=== PATIENT | male | born 1945 | race Caucasian/White ===

== ENCOUNTER → 2020-04-14 08:22 | Outpatient (BNVA) | payer MEDICARE, SELFPAY | PROVIDERS: PCP Internal Medicine; Referring Provider Internal Medicine; Visit Provider Urology | DX: N40.1 Benign prostatic hyperplasia with lower urinary tract symptoms (principal); N52.9 Male erectile dysfunction, unspecified | CPT/HCPCS: 51798; 81002; 99212 ==

== ENCOUNTER 2020-07-12 10:18 | Day surgery (SDC) | payer MEDICARE, SELFPAY ==
--- NOTE | 2020-07-11 07:59 | HO.ANESPROP2 ---
Documented by User: Margot Joelle 07/11/20 08:01 HPI - Anesthesia Eval Consult details Narrative: 74yo M for Upper Endoscopy with Balloon Dilitation PMF Active Problems Active Problems: All Active Problems (Updated 05/02/20 @ 09:22 by Dodie Cazares MD) Splenic artery aneurysm (Acute) BPH (benign prostatic hyperplasia) (Acute) Impaired glucose tolerance (Acute) Hypercholesterolemia (Acute) Erectile dysfunction (Acute) Past Medical History Medical History (Updated 07/12/20 @ 12:47 by Radha Banuelos) Anxiety BPH (benign prostatic hyperplasia) Erectile dysfunction Fatty liver GERD (gastroesophageal reflux disease) Gout Hypercholesterolemia Impaired glucose tolerance Insomnia Left inguinal hernia Peroneal tendonitis of right lower extremity Restless leg syndrome Splenic artery aneurysm Status post administration of all doses of COVID-19 vaccine series Umbilical hernia Vitamin D deficiency Family History Family History Father CVD (cardiovascular disease) Heart problem Mother Pneumonia Brother CVD (cardiovascular disease) Prostate cancer Sister Ovarian cancer Sister Cancer Son In good health Daughter In good health Surgical History Surgical History History of cataract surgery History of laparoscopic cholecystectomy History of surgery Status post appendectomy Social History Social History Smoking Status: Never smoker Use of substances other than those prescribed or required for medical reasons: No Have you been hit, kicked, punched, or otherwise hurt by someone within the past year? If so, by whom?: No Advance Directives: No Advance Directives Information Provided: Yes Meds Allergies Allergy/AdvReac Type Severity Reaction Status Date / Time bee venom protein (honey bee) Allergy Severe Anaphylaxis Verified 04/19/20 08:33 Home Medications Medication Instructions Recorded Confirmed Last Taken Type allopurinol 100 mg tablet 100 mg PO DAILY 04/14/20 05/02/20 Unknown History ezetimibe 10 mg tablet 10 mg PO DAILY 04/14/20 05/02/20 Unknown History fenofibrate 160 mg tablet 160 mg PO DAILY 04/14/20 05/02/20 Unknown History sildenafil 100 mg tablet mg PO 04/14/20 05/02/20 Unknown History gabapentin 300 mg capsule 600 mg PO BEDTIME cap 05/02/20 05/02/20 Unknown History pramipexole 0.5 mg tablet mg PO TID tab 05/02/20 05/02/20 Unknown History Exam Exam Date and Time: July 11, 2020758 Assessment and Plan Assessment Anesthesia Assessment: Chart Reviewed Documented by User: Radha Banuelos 07/12/20 12:47 [facility] Past Medical History Medical History (Updated 07/12/20 @ 12:47 by Radha Banuelos) Anxiety BPH (benign prostatic hyperplasia) Erectile dysfunction Fatty liver GERD (gastroesophageal reflux disease) Gout Hypercholesterolemia Impaired glucose tolerance Insomnia Left inguinal hernia Peroneal tendonitis of right lower extremity Restless leg syndrome Splenic artery aneurysm Status post administration of all doses of COVID-19 vaccine series Umbilical hernia Vitamin D deficiency Family History Family History Father CVD (cardiovascular disease) Heart problem Mother Pneumonia Brother CVD (cardiovascular disease) Prostate cancer Sister Ovarian cancer Sister Cancer Son In good health Daughter In good health Family history of problems with anesthesia: No Surgical History Surgical History History of cataract surgery History of laparoscopic cholecystectomy History of surgery Status post appendectomy History of Problems with Anesthesia: No Social History Social History Smoking Status: Never smoker Use of substances other than those prescribed or required for medical reasons: No Have you been hit, kicked, punched, or otherwise hurt by someone within the past year? If so, by whom?: No Advance Directives: No Advance Directives Information Provided: Yes Meds Allergies Allergy/AdvReac Type Severity Reaction Status Date / Time bee venom protein (honey bee) Allergy Severe Anaphylaxis Verified 04/19/20 08:33 Home Medications Medication Instructions Recorded Confirmed Last Taken Type allopurinol 100 mg tablet 100 mg PO DAILY 04/14/20 05/02/20 Unknown History ezetimibe 10 mg tablet 10 mg PO DAILY 04/14/20 05/02/20 Unknown History fenofibrate 160 mg tablet 160 mg PO DAILY 04/14/20 05/02/20 Unknown History sildenafil 100 mg tablet mg PO 04/14/20 05/02/20 Unknown History gabapentin 300 mg capsule 600 mg PO BEDTIME cap 05/02/20 05/02/20 Unknown History pramipexole 0.5 mg tablet mg PO TID tab 05/02/20 05/02/20 Unknown History Exam Height,Weight and Vital Signs: Vital Signs Temp Pulse Resp BP Pulse Ox 07/12/20 11:20 97.2 F 56 18 137/66 96 Airway Mallampati Class: II TM Dist: >3cm Neck ROM: Full Heart: RRR Lungs: CTAB Assessment and Plan Assessment Anesthesia Assessment: Anesthesia Plan Discussed and Chart Reviewed Final Anesthetic Review NPO: Yes ASA Class: II Final Preanesthetic Review: No Changes in Pt Med Stat, Meds/Allgs Chart Reviewed, Consent Obtained/Reviewed and Anes Risks/Benef Reviewed Patient Risk: Low Procedure Risk: Low Assessment/Block/Sedation in SS: Assess/Block/Sedation-SS Anesthetic Plan Anesthetic Plan: MAC: Disposition: Standard PACU
[2020-07-12 11:19] VITALS: BMI 29.1
[2020-07-12 11:20] VITALS: BP 137/66; PULSE 56; RESP 18; TEMP 36.2; O2SAT 96
[2020-07-12] MEDS: Lactated Ringers 1,000 ML 100 ML IVCONT (11:38)
[2020-07-12 13:36] VITALS: BP 123/71; PULSE 47; RESP 14; TEMP 36.4; O2SAT 96
--- NOTE | 2020-07-12 13:41 | PM.OP ---
Brief Operative Note Date of Service: 07/12/20 Pre-op diagnosis: Dysphagia Post-op diagnosis: other (Mild distal esophageal stricture, hiatal hernia, gastric polyps) Procedure: EGD with Balloon Dilation(18-20mm esophageal) and biopsies Surgeon: Matt Ward Anesthesia: MAC Estimated blood loss (mL): 4.0 Pathology: other (A. Gastric polyps) Condition: stable Disposition: PACU
[2020-07-12 13:49] VITALS: BP 111/57; PULSE 58; RESP 18; O2SAT 95
[2020-07-12 14:02] VITALS: TEMP 36.6
--- NOTE | 2020-07-12 22:04 | OP_ITS ---
SURGEON: Matt Ward MD INDICATIONS: The patient presents for evaluation of dysphagia and history of reflux. Full consent has been obtained from him for this, including risks of bleeding and perforation. PREOPERATIVE DIAGNOSIS: POSTOPERATIVE DIAGNOSIS: PROCEDURE PERFORMED: Esophagogastroduodenoscopy with balloon dilation of distal esophageal stricture, and biopsies. ESTIMATED BLOOD LOSS: COMPLICATIONS: ANESTHESIA: Monitored anesthesia care. ASSISTANTS: SPECIMENS: PREOPERATIVE DIAGNOSES: Dysphagia and history of reflux. POSTOPERATIVE DIAGNOSES: Dysphagia and history of reflux, mild distal esophageal stricture, hiatal hernia, gastric polyps. DESCRIPTION OF PROCEDURE: The patient was placed in the left lateral decubitus position. The Olympus video gastroscope was passed in the posterior oropharynx and upper esophagus under direct vision. The scope was passed slowly into the distal esophagus. The gastroesophageal junction appeared at 39 cm. This area was notable for a nonobstructing fibrotic appearing mild esophageal stricture. There was no ulceration nor mass. The scope easily passed this into a small hiatal hernia. The scope was advanced to pylorus and the duodenum was cannulated to the descending portion. The duodenum including the bulb was carefully inspected and appeared normal. There was no mass or ulceration. The scope was withdrawn back into the stomach. The gastric antrum and body appeared normal with good peristalsis. The scope was retroflexed visualizing the proximal stomach carefully, which appeared normal, without any sign of mass or ulceration. Scope was straightened. In the forward viewing position, multiple hyperplastic appearing gastric polyps were noted and several were biopsied. These were all in the proximal stomach. The scope was withdrawn back in the esophagus. I did use a [employer] incremental balloon to dilate the gastroesophageal junction and mild stricture with an 18 mm to a 20 mm esophageal balloon at the recommended pressure for 30 to 60 seconds each with good effect. There was some heme noted and disruption of the stricture. Proximal to 39 cm, the esophageal mucosa appeared normal. The scope was withdrawn from the patient. He tolerated the procedure well and was returned to the recovery area in stable condition. IMPRESSION: 1. Mild distal esophageal stricture, status post balloon dilation. 2. Gastric polyps, status post biopsy. 3. Small hiatal hernia. PLAN: The results of the biopsies will be checked. He was advised to continue his pantoprazole long-term. He was advised not to use any aspirin or NSAIDs for at least 1 week. Given today's findings, I did not obtain any proximal esophageal biopsies given no evidence of proximal esophageal rings that would suggest eosinophilic esophagitis. He was advised to minimize his use of caffeine as well. He will see me otherwise on a p.r.n. basis, but was advised to call sooner if he has any problems with his swallowing again. This has been discussed with his . MD TORI Shah/[facility] / [id number]
== END 2020-07-12 13:00 | disposition home or self-care (01) ==
PROVIDERS: PCP Internal Medicine; Visit Provider Internal Medicine
PROC: (CPT 43249; principal; 2020-07-12 11:40)
DX: K22.4 Dyskinesia of esophagus (principal); K22.2 Esophageal obstruction; K21.9 Gastro-esophageal reflux disease without esophagitis; K31.7 Polyp of stomach and duodenum; K44.9 Diaphragmatic hernia without obstruction or gangrene; K76.0 Fatty (change of) liver, not elsewhere classified; Z79.899 Other long term (current) drug therapy
CPT/HCPCS: 43249; 43239; 88305; 88342; C1726

== ENCOUNTER 2020-10-11 10:32 | Outpatient (REF) | payer MEDICARE, SELFPAY ==
[2020-10-11 13:11] LABS: MANUAL DIFF FLAG NO
[2020-10-11 13:15] LABS: Basophils Percent Auto 0.4 % (0-2); Eosinophils Absolute Auto 0.3 X10*3/uL (0.0-0.4); Eosinophils Percent Auto 5.1 % (0-4); Hematocrit 47.9 % (42-52); Hemoglobin 16.2 g/dl (14.0-18.0); Imm Gran Abs Auto 0.01 X10*3/uL (0.00-0.03); Imm Gran Pct Auto 0.2 % (0.0-0.4); Lymphocytes Absolute Auto 1.6 X10*3/uL (1.2-4.9); Lymphocytes Percent Auto 32.4 % (20-40); Mean Corpuscular HGB Conc 33.8 g/dl (31.0-36.0); Mean Corpuscular Hemoglobin 29.3 pg (27.0-33.0); Mean Corpuscular Volume 86.8 fL (80-98); Mean Platelet Volume 11.9 fL (9.4-12.4); Monocytes Absolute Auto 0.4 X10*3/uL (0.1-1.2); Neutrophils Absolute Auto 2.6 X10*3/uL (2.0-8.3); Neutrophils Percent Auto 53.9 % (45-73); Platelet Count 169 X10*3/uL (160-400); Red Blood Count 5.52 X10*6/uL (4.60-5.80); Red Cell Distribution Width 12.3 % (11.0-16.0); White Blood Count 4.9 X10*3/uL (4.8-10.8)
[2020-10-11 13:31] LABS: Estimated Average Glucose 120 mg/dL; Hemoglobin A1c % 5.8 %
[2020-10-11 13:40] LABS: Alanine Aminotransferase 44 U/L (0-40); Albumin Level 4.2 g/dL (3.5-5.0); Alkaline Phosphatase 65 U/L (39-117); Anion Gap 15 (12-20); Aspartate Amino Transferase 29 U/L (5-37); Bilirubin Total 0.9 mg/dL (0.0-1.0); Blood Urea Nitrogen 13 mg/dL (9-16); Calcium 9.5 mg/dL (8.4-10.2); Chloride 107 mmol/L (96-108); Cholesterol 222 mg/dL; Estimated Glomerular Filt Rate > 60; Glucose Random 122 mg/dL (60-115); HDL Cholesterol 45 mg/dL; LDL Cholesterol Calculated 137 mg/dl; Potassium 4.7 mmol/L (3.3-5.1); Sodium 142 mmol/L (135-145); Total Protein 6.9 g/dL (6.5-8.0); Triglycerides 200 mg/dL
[2020-10-11 13:41] LABS: Carbon Dioxide 25 mmol/L (22-29)
[2020-10-11 13:59] LABS: Free T4 (Free Thyroxine) 0.93 ng/dL (0.71-1.85)
[2020-10-11 14:02] LABS: PSA,Total (Free>4and<10) 0.51 ng/mL (0.00-4.00); Thyroid Stimulating Hormone 1.71 uIU/mL (0.32-4.0)
[2020-10-11 15:02] LABS: Folate 14.1 ng/mL (> or = 4.0); Vitamin B12 269 pg/mL (200-900)
== END 2020-10-11 10:33 | disposition home or self-care (01) ==
LOC: HO.10HDL 10:32
PROVIDERS: Urology; Visit Provider Internal Medicine
DX: R73.02 Impaired glucose tolerance (oral) (principal); E78.00 Pure hypercholesterolemia, unspecified; N13.8 Other obstructive and reflux uropathy; N40.1 Benign prostatic hyperplasia with lower urinary tract symptoms; Z12.5 Encounter for screening for malignant neoplasm of prostate
CPT/HCPCS: 36415; 80053; 80061; 82607; 82746; 83036; 84153; 84439; 84443; 85025

== ENCOUNTER → 2020-10-13 08:23 | Outpatient (BNVA) | payer MEDICARE, SELFPAY | PROVIDERS: PCP Internal Medicine; Visit Provider Urology | DX: N40.1 Benign prostatic hyperplasia with lower urinary tract symptoms (principal); R35.0 Frequency of micturition; N52.9 Male erectile dysfunction, unspecified | CPT/HCPCS: 99212 ==

== ENCOUNTER 2020-11-07 08:40 | Outpatient (REF) | payer MEDICARE, SELFPAY | END 2020-11-07 08:41 | disposition home or self-care (01) | LOC: HO.US 08:40 | PROVIDERS: Visit Provider Internal Medicine | DX: Z13.89 Encounter for screening for other disorder (principal) ==

== ENCOUNTER 2020-11-10 08:12 | Outpatient (REF) | payer MEDICARE, SELFPAY ==
--- NOTE | ~2020-11-10 | US_ITS ---
EXAMINATION: US ABDOMEN COMPLETE CLINICAL INFORMATION: Other specified abnormal findings of blood chemistry. COMPARISON: CT abdomen and pelvis 10/30/2018. Ultrasound abdomen limited 02/14/2011. TECHNIQUE: Real-time imaging of the abdominal viscera. Technically limited study secondary to bowel gas and body habitus. FINDINGS: PANCREAS: Not well visualized due to bowel gas ABDOMINAL AORTA: The proximal, mid, and distal segments are normal in caliber. INFERIOR VENA CAVA: Visualized portions are normal. LIVER: Evaluation of the liver is limited due to patient body habitus, particularly the left lobe. Liver echotexture is slightly increased. No focal hepatic lesion. There is no intrahepatic biliary duct dilatation seen. GALLBLADDER: Surgically absent. COMMON BILE DUCT: Normal in caliber measuring 1.1 cm in diameter. RIGHT KIDNEY: There is a 3 cm cyst in the midpole. No hydronephrosis or renal calculi. The kidney measures 12.0 cm in maximum dimension. LEFT KIDNEY: Normal. No hydronephrosis. No renal calculi or focal parenchymal lesions. The kidney measures 12.0 cm in maximum dimension. SPLEEN: Normal. The spleen measures 11.5 cm in maximum dimension. FREE FLUID: None. US/US abdomen complete IMPRESSION: Limited visualization of the pancreas and left lobe of the liver. Echogenic liver probably representing fatty infiltration. Right renal cyst.
== END 2020-11-10 08:13 | disposition home or self-care (01) ==
LOC: HO.US 08:12
PROVIDERS: Visit Provider Internal Medicine
DX: I72.8 Aneurysm of other specified arteries (principal); Z79.899 Other long term (current) drug therapy
CPT/HCPCS: 76700

== ENCOUNTER 2021-03-20 08:50 | Outpatient (REF) | payer MEDICARE, SELFPAY ==
--- NOTE | 2021-03-27 10:34 | MHC.AU.ANO ---
Adult Audiological Evaluation Date of Visit: 03/20/21 Insurance Claims Representative Used: Not Applicable Reason for Appointment: Audiologic evaluation due to question of decreased hearing ability. Darrius reports other people feel he is experiencing difficulty understanding speech. Does patient feel they have a hearing loss?: No Has hearing been tested previously?: No Hearing Handicap Inventory: HHIE SCORE: 2 Based on HHIE score, patient has: No perceived hearing handicap Ear History: History of Ear Wax Buildup: Removed by Dr. Cazares at last office visit. 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 Absent 2609-2545 Hz Analysis: Results are consistent with degree and configuration of hearing loss Left Ear Results: Present 1600 & 2000 Hz. Absent 1370-6427 Hz Analysis: Results are consistent with degree and configuration of hearing loss Hearing Evaluation: Transducer(s) Used: Insert Earphones Bone Conduction Method: Conventional Audiometry Stimuli Used: Pure Tones Right Ear: Description of Hearing: Mild loss at 250 Hz, rising to normal hearing thresholds 500-2000 Hz, sloping to a moderately-severe sensorineural hearing loss at 4000 Hz, rising to a mild loss at 8000 Hz. Left Ear: Description of Hearing: Mild loss at 250 Hz, rising to normal hearing thresholds 500-2000 Hz, sloping to a moderate sensorineural hearing loss at 4000 Hz, rising to a mild loss at 8000 Hz. Speech Recognition Threshold (SRT): Method Used: Monitored Live Voice Stimuli Used: Spondee Words Right Ear: 15 dB HL Left Ear: 15 dB HL Word Discrimination: Method: Recorded Lists Word Lists Used: NU-6 Right Ear: 92% at 60 dB HL Left Ear: 96% at 60 dB HL Interpretation of Results: The hypercompliant left middle ear system may relate to Kalen's intermittent blocked ear sensation an pain, particularly when he is experiencing any congestion. The bilateral high frequency loss causes Kalen to not hear many consonant sounds of speech which make it difficult to differentiate similar sounding words. This especially occurs when any background noise is present, a person is not facing him, or is at a distance of greater than 6 feet when speaking Recommendations: Discussed and provided a handout regarding communication strategies to use to improve speech understanding as much as possible. Discussed hearing aids and Darrius does not feel he is ready for amplification at this time. Hearing protection should be used when around loud noise. Audiological re-evaluation in one year. Will send a reminder card. Diagnosis: Primary Diagnosis: H90.3 Bilateral Sensorineural Hearing Loss Services Performed: Comprehensive Audiological Evaluation (CPT 61003) Tympanometry (CPT 47255) Signature: Provider: Asia Prince, CHIQUITA-A
== END 2021-03-20 08:51 | disposition home or self-care (01) ==
LOC: HO.SH 08:50
PROVIDERS: Visit Provider Internal Medicine
DX: H91.03 Ototoxic hearing loss, bilateral (principal)
CPT/HCPCS: 92557; 92567

== ENCOUNTER 2021-05-01 09:57 | Outpatient (REF) | payer MEDICARE, SELFPAY ==
[2021-05-01 10:45] LABS: Alanine Aminotransferase 43 U/L (0-40); Albumin Level 4.2 g/dL (3.5-5.0); Alkaline Phosphatase 52 U/L (39-117); Anion Gap 13 (12-20); Aspartate Amino Transferase 24 U/L (5-37); Bilirubin Total 0.8 mg/dL (0.0-1.0); Blood Urea Nitrogen 17 mg/dL (9-16); Calcium 10.1 mg/dL (8.4-10.2); Carbon Dioxide 28 mmol/L (22-29); Chloride 106 mmol/L (96-108); Cholesterol 266 mg/dL; Estimated Glomerular Filt Rate > 60; Glucose Fasting 116 mg/dL (60-99); HDL Cholesterol 36 mg/dL; LDL Cholesterol Calculated 157 mg/dl; Potassium 4.9 mmol/L (3.3-5.1); Sodium 142 mmol/L (135-145); Total Protein 7.1 g/dL (6.5-8.0); Triglycerides 369 mg/dL
== END 2021-05-01 09:58 | disposition home or self-care (01) ==
LOC: HO.10HDL 09:57
PROVIDERS: Visit Provider Nurse Practitioner Family
DX: E78.00 Pure hypercholesterolemia, unspecified (principal); R73.02 Impaired glucose tolerance (oral)
CPT/HCPCS: 36415; 80053; 80061

== ENCOUNTER 2021-05-07 08:52 | Outpatient (REF) | payer MEDICARE, SELFPAY ==
--- NOTE | ~2021-05-07 | CT_ITS ---
EXAMINATION: CT ABDOMEN WITH CONTRAST CLINICAL INFORMATION: Aneurysm or other specified arteries. COMPARISON: CT abdomen pelvis 10/30/2018 TECHNIQUE: Contiguous axial thin section helical images of the abdomen were performed following the administration of oral contrast and 85 mL of Omnipaque 350 intravenous contrast. The data set was reformatted in the coronal and sagittal planes and reviewed on an independent workstation. This CT examination was performed using dose optimization techniques as appropriate, variously including the following: *Automated exposure control *Adjustment of mA and/or kV according to patient size (this includes techniques or standardized protocols for targeted exams where dose is matched to indication/reason for exam; i.e. extremities or head) *Use of iterative reconstruction technique DLP: 336 mGy-cm FINDINGS: LUNG BASES: There is minimal bibasilar atelectasis. The heart size is normal. LIVER, GALLBLADDER, AND BILIARY TREE: The liver is normal size, contour and density. No focal lesion or intrahepatic ductal dilatation seen. The gallbladder has been surgically removed. PANCREAS: The pancreas is homogeneous in density and normal size. SPLEEN: The spleen is normal size. No focal lesion seen. ADRENAL GLANDS AND KIDNEYS: Bilateral adrenal glands are symmetrical and unremarkable. Both kidneys are normal size, shape and cortical thickness. There is a small nonenhancing 5 mm cyst lower pole left kidney and a exophytic 3.2 cm midpole and a 1.1 cm lower pole right renal cysts. Mild bilateral perinephric stranding is seen. BOWEL LOOPS: There is scattered stool, diverticula and gas seen in colon without any distention. The small bowel loops are normal caliber. No free air or free fluid. ABDOMINAL WALL: There is a right paraumbilical hernia with 3.2 cm wide neck. LYMPH NODES: Normal. VASCULAR: There is a 1 cm calcified splenic artery aneurysm. Previously it measured 8 mm. BONES: Mild degenerative disc changes L4-L5 and L5-S1 disc levels with ventral spondylosis. There is moderate spondylosis lower dorsal spine as well. CT/CT abdomen w con IMPRESSION: 1 cm splenic artery aneurysm. Previously measured 8 mm. Bilateral renal cysts, stable. Colonic diverticulosis, stable. Cholecystectomy changes. Small umbilical hernia containing fat. Fleischner guidelines were followed.
[2021-05-07] MEDS: iohexoL 350 MG/ML 100 ML INFUS..BTL IV (11:11)
== END 2021-05-07 08:53 | disposition home or self-care (01) ==
LOC: HO.CT 08:52
PROVIDERS: Visit Provider Internal Medicine
DX: I72.8 Aneurysm of other specified arteries (principal)
CPT/HCPCS: 74160; Q9967

== ENCOUNTER 2021-10-06 07:35 | Outpatient (REF) | payer MEDICARE, SELFPAY ==
--- NOTE | ~2021-10-06 | XR_ITS ---
EXAMINATION: XR ELBOW, RIGHT CLINICAL INFORMATION: Pain. COMPARISON: Previous x-ray 09/2010. TECHNIQUE: AP, lateral, and oblique views of the right elbow. FINDINGS: Bone alignment is normal. No fracture or dislocation is seen. The joint spaces are normal. There is no joint effusion. There is a large osteophyte projecting off the olecranon. There is soft tissue swelling over the olecranon suggestive of olecranon bursitis. There is a high attenuation with numerous small high attenuation densities questionable for calcifications or ossifications. XR/XR elbow RT 2V IMPRESSION: Soft tissue swelling over the olecranon, suggestive of olecranon bursitis. This is increased in attenuation with multiple small high attenuation soft tissue densities.
[2021-10-06 07:50] LABS: MANUAL DIFF FLAG NO
[2021-10-06 08:16] LABS: Basophils Percent Auto 0.4 % (0-2); Eosinophils Absolute Auto 0.4 X10*3/uL (0.0-0.4); Eosinophils Percent Auto 5.8 % (0-4); Hematocrit 46.1 % (42.0-52.0); Hemoglobin 15.7 g/dl (14.0-18.0); Imm Gran Abs Auto 0.04 X10*3/uL (0.00-0.03); Imm Gran Pct Auto 0.5 % (0.0-0.4); Lymphocytes Absolute Auto 2.1 X10*3/uL (1.2-4.9); Lymphocytes Percent Auto 27.4 % (20-40); Mean Corpuscular HGB Conc 34.1 g/dl (31.0-36.0); Mean Corpuscular Hemoglobin 29.6 pg (27.0-33.0); Mean Corpuscular Volume 86.8 fL (80.0-98.0); Mean Platelet Volume 10.6 fL (9.4-12.4); Monocytes Absolute Auto 0.9 X10*3/uL (0.1-1.2); Monocytes Percent Auto 11.3 % (2-11); Neutrophils Absolute Auto 4.2 x10*3/uL (2.0-8.3); Neutrophils Percent Auto 54.6 % (45-73); Platelet Count 209 X10*3/uL (160-400); Red Blood Count 5.31 X10*6/uL (4.60-5.80); Red Cell Distribution Width 12.2 % (11.0-16.0); White Blood Count 7.6 X10*3/uL (4.8-10.8)
[2021-10-06 08:48] LABS: Alanine Aminotransferase 40 U/L (0-40); Albumin Level 4.2 g/dL (3.5-5.0); Alkaline Phosphatase 75 U/L (39-117); Anion Gap 12 (12-20); Aspartate Amino Transferase 22 U/L (5-37); Bilirubin Total 0.7 mg/dL (0.0-1.0); Blood Urea Nitrogen 19 mg/dL (9-16); Calcium 9.8 mg/dL (8.4-10.2); Carbon Dioxide 26 mmol/L (22-29); Chloride 105 mmol/L (96-108); Cholesterol 154 mg/dL; Estimated Glomerular Filt Rate > 60; Glucose Random 121 mg/dL (60-115); HDL Cholesterol 40 mg/dL; LDL Cholesterol Calculated 82 mg/dl; Potassium 4.7 mmol/L (3.3-5.1); Sodium 138 mmol/L (135-145); Triglycerides 161 mg/dL; Uric Acid 5.3 mg/dL (3.4-7.0)
[2021-10-06 08:59] LABS: Erythrocyte Sedimentation Rate 19 MM/HR (0-15)
[2021-10-06 09:02] LABS: Free T4 (Free Thyroxine) 0.88 ng/dL (0.71-1.85); Thyroid Stimulating Hormone 1.31 uIU/mL (0.32-4.0)
== END 2021-10-06 07:36 | disposition home or self-care (01) ==
LOC: HO.LAB 07:35
PROVIDERS: PCP Internal Medicine; Visit Provider Internal Medicine
DX: E78.00 Pure hypercholesterolemia, unspecified (principal); R42 Dizziness and giddiness; M25.521 Pain in right elbow
CPT/HCPCS: 36415; 73070; 80053; 80061; 84439; 84443; 84550; 85025; 85652

== ENCOUNTER → 2021-10-12 08:54 | Outpatient (BNVA) | payer MEDICARE, SELFPAY | PROVIDERS: PCP Internal Medicine; Visit Provider Urology | DX: N40.1 Benign prostatic hyperplasia with lower urinary tract symptoms (principal); R35.0 Frequency of micturition | CPT/HCPCS: 51798; 99212 ==

== ENCOUNTER → 2022-01-22 08:50 | Outpatient (BNVA) | payer MEDICARE, SELFPAY | PROVIDERS: PCP Internal Medicine; Visit Provider Physician Assistant | DX: M1A.9XX1 Chronic gout, unspecified, with tophus (tophi) (principal) | CPT/HCPCS: 99212 ==

== ENCOUNTER 2022-04-24 08:13 | Day surgery (SDC) | payer MEDICARE, SELFPAY ==
--- NOTE | 2022-04-23 13:22 | HO.ANESPROP2 ---
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 (Acute) Benign positional vertigo (Acute) Impacted cerumen of both ears (Acute) Gout of right elbow (Acute) Constipation (Acute) Screening for prostate cancer (Acute) Umbilical hernia (Acute) Insomnia (Acute) Status post administration of all doses of COVID-19 vaccine series (Acute) Splenic artery aneurysm (Acute) BPH (benign prostatic hyperplasia) (Acute) Impaired glucose tolerance (Acute) Hypercholesterolemia (Acute) Erectile dysfunction (Acute) Past Medical History Medical History Anxiety BPH (benign prostatic hyperplasia) Diverticulitis Erectile dysfunction Esophageal stricture Fatty liver GERD (gastroesophageal reflux disease) Gout H/O: pneumonia Hypercholesterolemia Impaired glucose tolerance Insomnia Left inguinal hernia Peripheral neuropathy Peroneal tendonitis of right lower extremity Restless leg syndrome Splenic artery aneurysm Status post administration of all doses of COVID-19 vaccine series Tubular adenoma Umbilical hernia Vitamin D deficiency Family History Family History Father CVD (cardiovascular disease) Heart problem Mother Pneumonia Brother CVD (cardiovascular disease) Prostate cancer Sister Ovarian cancer Sister Cancer Son In good health Daughter In good health Family history of problems with anesthesia: No Surgical History Surgical History H/O esophagogastroduodenoscopy History of cataract surgery History of colonoscopy History of laparoscopic cholecystectomy History of surgery Status post appendectomy History of Problems with Anesthesia: No Social History Social History Housing: House Alcohol intake: current Alcohol intake frequency: a few times a month Alcohol type: beer Patient Tobacco Use Status: Never used Tobacco e-Cigarette/Vaping Use: Never Used Second Hand Smoke Exposure: No Use of substances other than those prescribed or required for medical reasons: No Are you DNR?: No Advance Directives: No Advance Directives Information Provided: Yes service: Yes 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al status: retired 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 Cognitive needs: No Hearing needs: No Vision needs: Yes Meds Allergies Allergy/AdvReac Type Severity Reaction Status Date / Time bee venom protein (honey bee) Allergy Severe Anaphylaxis Verified 04/24/22 08:30 Home Medications Medication Instructions Recorded Confirmed Last Taken Type allopurinol 100 mg tablet 100 mg PO DAILY 04/14/20 04/24/22 Unknown History (Zyloprim) fenofibrate 160 mg tablet 160 mg PO DAILY 04/14/20 04/24/22 Unknown History gabapentin 300 mg capsule 600 mg PO BEDTIME 05/02/20 04/24/22 Unknown History (Neurontin) pramipexole 0.5 mg tablet (Mirapex) 0.5 mg PO TID 05/02/20 04/24/22 Unknown History colchicine 0.6 mg tablet (Colcrys) 0.6 mg PO DAILY 04/24/22 04/24/22 Unknown History ezetimibe 10 mg tablet (Zetia) 10 mg PO DAILY 04/24/22 04/24/22 Unknown History ibuprofen 600 mg tablet (IBU) 600 mg PO TID PRN pain 04/24/22 04/24/22 04/16/22 History pantoprazole 40 mg tablet,delayed 40 mg PO DAILY 04/24/22 04/24/22 Unknown History release (Protonix) rosuvastatin 20 mg tablet (Crestor) 20 mg PO DAILY 04/24/22 04/24/22 Unknown History sildenafil 100 mg tablet (Viagra) 100 mg PO DAILY PRN sexual activity 04/24/22 04/24/22 Unknown History tamsulosin 0.4 mg capsule (Flomax) 0.4 mg PO BEDTIME 04/24/22 04/24/22 Unknown History zolpidem 5 mg tablet (Ambien) 5 mg PO BEDTIME PRN sleep 04/24/22 04/24/22 Unknown History Exam Exam Date and Time: April 23, 2022 1322 Pertinent Lab Results Pertinent Lab Results: Laboratory Tests 10/06/21 10/06/21 07:49 07:49 WBC 7.6 Hgb 15.7 Hct 46.1 Plt Count 209 Sodium 138 Potassium 4.7 Chloride 105 Carbon Dioxide 26 BUN 19 H Creatinine 1.17 Assessment and Plan Assessment Anesthesia Assessment: Chart Reviewed Final Anesthetic Review Family History of Problems with Anesthesia: No History of Problems with Anesthesia: No Documented by User: Marlo Mondragon MD 04/24/22 08:38 PMF Past Medical History Medical History Anxiety BPH (benign prostatic hyperplasia) Diverticulitis Erectile dysfunction Esophageal stricture Fatty liver GERD (gastroesophageal reflux disease) Gout H/O: pneumonia Hypercholesterolemia Impaired glucose tolerance Insomnia Left inguinal hernia Peripheral neuropathy Peroneal tendonitis of right lower extremity Restless leg syndrome Splenic artery aneurysm Status post administration of all doses of COVID-19 vaccine series Tubular adenoma Umbilical hernia Vitamin D deficiency Family History Family History Father CVD (cardiovascular disease) Heart problem Mother Pneumonia Brother CVD (cardiovascular disease) Prostate cancer Sister Ovarian cancer Sister Cancer Son In good health Daughter In good health Family history of problems with anesthesia: No Surgical History Surgical History H/O esophagogastroduodenoscopy History of cataract surgery History of colonoscopy History of laparoscopic cholecystectomy History of surgery Status post appendectomy History of Problems with Anesthesia: No Social History Social History Housing: House Alcohol intake: current Alcohol intake frequency: a few times a month Alcohol type: beer Patient Tobacco Use Status: Never used Tobacco e-Cigarette/Vaping Use: Never Used Second Hand Smoke Exposure: No Use of substances other than those prescribed or required for medical reasons: No Are you DNR?: No Advance Directives: No Advance Directives Information Provided: Yes service: Yes 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al status: retired 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 Cognitive needs: No Hearing needs: No Vision needs: Yes Meds Allergies Allergy/AdvReac Type Severity Reaction Status Date / Time bee venom protein (honey bee) Allergy Severe Anaphylaxis Verified 04/24/22 08:30 Home Medications Medication Instructions Recorded Confirmed Last Taken Type allopurinol 100 mg tablet 100 mg PO DAILY 04/14/20 04/24/22 Unknown History (Zyloprim) fenofibrate 160 mg tablet 160 mg PO DAILY 04/14/20 04/24/22 Unknown History gabapentin 300 mg capsule 600 mg PO BEDTIME 05/02/20 04/24/22 Unknown History (Neurontin) pramipexole 0.5 mg tablet (Mirapex) 0.5 mg PO TID 05/02/20 04/24/22 Unknown History colchicine 0.6 mg tablet (Colcrys) 0.6 mg PO DAILY 04/24/22 04/24/22 Unknown History ezetimibe 10 mg tablet (Zetia) 10 mg PO DAILY 04/24/22 04/24/22 Unknown History ibuprofen 600 mg tablet (IBU) 600 mg PO TID PRN pain 04/24/22 04/24/22 04/16/22 History pantoprazole 40 mg tablet,delayed 40 mg PO DAILY 04/24/22 04/24/22 Unknown History release (Protonix) rosuvastatin 20 mg tablet (Crestor) 20 mg PO DAILY 04/24/22 04/24/22 Unknown History sildenafil 100 mg tablet (Viagra) 100 mg PO DAILY PRN sexual activity 04/24/22 04/24/22 Unknown History tamsulosin 0.4 mg capsule (Flomax) 0.4 mg PO BEDTIME 04/24/22 04/24/22 Unknown History zolpidem 5 mg tablet (Ambien) 5 mg PO BEDTIME PRN sleep 04/24/22 04/24/22 Unknown History Exam Airway Mallampati Class: II TM Dist: >3cm Neck ROM: Full Loose/Missing/Broken Teeth: No Heart: ok Lungs: ok Assessment and Plan Assessment Anesthesia Assessment: Anesthesia Plan Discussed and Chart Reviewed Final Anesthetic Review Family History of Problems with Anesthesia: No History of Problems with Anesthesia: No NPO: Yes ASA Class: II Final Preanesthetic Review: No Changes in Pt Med Stat, Meds/Allgs Chart Reviewed, Consent Obtained/Reviewed and Anes Risks/Benef Reviewed Patient Risk: Low Procedure Risk: Low Anesthetic Plan Anesthetic Plan: MAC: and Agree w/ Assess. and Plan Disposition: Standard PACU
[2022-04-24 08:25] VITALS: BMI 31.1
[2022-04-24 08:34] VITALS: BP 133/74; PULSE 61; RESP 15; TEMP 36.3; O2SAT 93
[2022-04-24] MEDS: Lactated Ringers 1,000 ML 100 ML IVCONT (08:47)
[2022-04-24 10:04] VITALS: BP 106/63; PULSE 51; RESP 18; TEMP 36.1; O2SAT 93
--- NOTE | 2022-04-24 10:14 | PM.OP ---
Brief Operative Note Date of Service: 04/24/22 Pre-op diagnosis: Screening Post-op diagnosis: other (Colon polyps) Procedure: Colonoscopy to the cecum and TI with hot snare polypectomy x 2, bx/removal of cecal polyps, and bx at 20cm Surgeon: Matt Ward Anesthesia: MAC Was an Plastic Printer used for this Procedure?: No Estimated blood loss (mL): 2.0 Pathology: other (A. Polyp at 40cm B. Cecal polyps C. Polyp at 60cm D. Bx at 20cm, R/O Lipoma) Condition: stable Disposition: PACU
[2022-04-24 10:19] VITALS: BP 110/70; PULSE 56; RESP 18; TEMP 36.1; O2SAT 95
--- NOTE | 2022-04-24 10:39 | OP_ITS ---
SURGEON: Matt Ward MD INDICATIONS: The patient presents for evaluation of personal history of tubular adenoma of the colon, family history of colon cancer, and colorectal cancer screening. Full consent was obtained from him for this, including risks of bleeding and perforation. PREOPERATIVE DIAGNOSIS: POSTOPERATIVE DIAGNOSIS: PROCEDURE PERFORMED: Colonoscopy to cecum and terminal ileum with hot snare polypectomy x2, biopsy and removal of polyps, and biopsy. ESTIMATED BLOOD LOSS: COMPLICATIONS: ANESTHESIA: Medication used, monitored anesthesia care. ASSISTANTS: SPECIMENS: PREOPERATIVE DIAGNOSES: Colorectal cancer screening, personal history of tubular adenoma, family history of colon cancer. POSTOPERATIVE DIAGNOSES: Colorectal cancer screening, personal history of tubular adenoma, family history of colon cancer, colon polyps, diverticulosis, question lipoma, internal hemorrhoids. DESCRIPTION OF PROCEDURE: The patient was placed in the left lateral decubitus position. The digital rectal exam revealed no abnormalities. The Olympus videopediatric colonoscope was entered into the rectum and advanced easily to the cecum. Once in the cecum, I did identify cecal pouch with appendiceal orifice and a normal-appearing ileocecal valve. The terminal ileum was cannulated and appeared normal. The scope was withdrawn back in the colon. The entire cecum and ileocecal valve were well visualized. In the cecum, there were 2 flat less than 5 mm polyps, which were each biopsied and completely removed with cold biopsy forceps. The scope was then slowly withdrawn assessing all mucosal surfaces carefully. Preparation was excellent. At 40 cm and at 60 cm were approximately 8-10 mm polyps, which were each removed by hot snare polypectomy and recovered by suction. The polypectomy sites appeared clean, without any sign of residual polyp nor bleeding. At 20 cm was what appeared to be a submucosal lipoma with normal overlying mucosa and very soft when probed with a biopsy forceps. Two biopsies were obtained. There was a moderate amount of sigmoid diverticulosis. In the rectum, the scope was retroflexed visualizing internal hemorrhoids, but no other pathology. The rectal mucosa appeared normal. The scope was straightened and withdrawn the patient. He tolerated the procedure well and was returned to recovery area in stable condition. IMPRESSION: 1. Colon polyps. 2. Diverticulosis. 3. Question lipoma of sigmoid colon. 4. Internal hemorrhoids. PLAN: The results of the pathology will be checked. Given these findings, his previous history, and family history, I would recommend a repeat colonoscopy in 5 years for further screening, although at that point, he would be in his late 70s and we would need to take his clinical condition into account. He was advised not to use any aspirin or NSAIDs for 1 week. He would otherwise see me on a p.r.n. basis. Of note, he was advised to continue his PPI long-term in regard to the previous history of an esophageal stricture. He knows to call me if he develops recurrent dysphagia. This has been discussed with his . MD TORI Shah/[facility] / [id number]
--- NOTE | 2022-04-24 11:54 | HO.ANESPROP2 ---
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 (Acute) Benign positional vertigo (Acute) Impacted cerumen of both ears (Acute) Gout of right elbow (Acute) Constipation (Acute) Screening for prostate cancer (Acute) Umbilical hernia (Acute) Insomnia (Acute) Status post administration of all doses of COVID-19 vaccine series (Acute) Splenic artery aneurysm (Acute) BPH (benign prostatic hyperplasia) (Acute) Impaired glucose tolerance (Acute) Hypercholesterolemia (Acute) Erectile dysfunction (Acute) Past Medical History Medical History Anxiety BPH (benign prostatic hyperplasia) Diverticulitis Erectile dysfunction Esophageal stricture Fatty liver GERD (gastroesophageal reflux disease) Gout H/O: pneumonia Hypercholesterolemia Impaired glucose tolerance Insomnia Left inguinal hernia Peripheral neuropathy Peroneal tendonitis of right lower extremity Restless leg syndrome Splenic artery aneurysm Status post administration of all doses of COVID-19 vaccine series Tubular adenoma Umbilical hernia Vitamin D deficiency Family History Family History Father CVD (cardiovascular disease) Heart problem Mother Pneumonia Brother CVD (cardiovascular disease) Prostate cancer Sister Ovarian cancer Sister Cancer Son In good health Daughter In good health Family history of problems with anesthesia: No Surgical History Surgical History H/O esophagogastroduodenoscopy History of cataract surgery History of colonoscopy History of laparoscopic cholecystectomy History of surgery Status post appendectomy History of Problems with Anesthesia: No Social History Social History Housing: House Alcohol intake: current Alcohol intake frequency: a few times a month Alcohol type: beer Patient Tobacco Use Status: Never used Tobacco e-Cigarette/Vaping Use: Never Used Second Hand Smoke Exposure: No Use of substances other than those prescribed or required for medical reasons: No Are you DNR?: No Advance Directives: No Advance Directives Information Provided: Yes service: Yes 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al status: retired 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 Cognitive needs: No Hearing needs: No Vision needs: Yes Meds Allergies Allergy/AdvReac Type Severity Reaction Status Date / Time bee venom protein (honey bee) Allergy Severe Anaphylaxis Verified 04/24/22 08:30 Home Medications Medication Instructions Recorded Confirmed Last Taken Type allopurinol 100 mg tablet 100 mg PO DAILY 04/14/20 04/24/22 Unknown History (Zyloprim) fenofibrate 160 mg tablet 160 mg PO DAILY 04/14/20 04/24/22 Unknown History gabapentin 300 mg capsule 600 mg PO BEDTIME 05/02/20 04/24/22 Unknown History (Neurontin) pramipexole 0.5 mg tablet (Mirapex) 0.5 mg PO TID 05/02/20 04/24/22 Unknown History colchicine 0.6 mg tablet (Colcrys) 0.6 mg PO DAILY 04/24/22 04/24/22 Unknown History ezetimibe 10 mg tablet (Zetia) 10 mg PO DAILY 04/24/22 04/24/22 Unknown History ibuprofen 600 mg tablet (IBU) 600 mg PO TID PRN pain 04/24/22 04/24/22 04/16/22 History pantoprazole 40 mg tablet,delayed 40 mg PO DAILY 04/24/22 04/24/22 Unknown History release (Protonix) rosuvastatin 20 mg tablet (Crestor) 20 mg PO DAILY 04/24/22 04/24/22 Unknown History sildenafil 100 mg tablet (Viagra) 100 mg PO DAILY PRN sexual activity 04/24/22 04/24/22 Unknown History tamsulosin 0.4 mg capsule (Flomax) 0.4 mg PO BEDTIME 04/24/22 04/24/22 Unknown History zolpidem 5 mg tablet (Ambien) 5 mg PO BEDTIME PRN sleep 04/24/22 04/24/22 Unknown History Exam Exam Date and Time: April 24, 2022 1154 Height,Weight and Vital Signs: Height 6 ft Weight 104.326 kg Last Vital Signs Temp 97 F 04/24/22 10:19 Pulse 56 04/24/22 10:19 Resp 18 04/24/22 10:19 BP 110/70 04/24/22 10:19 Pulse Ox 95 04/24/22 10:19 O2 Del Method 04/24/22 10:19 Airway Mallampati Class: II TM Dist: >3cm Neck ROM: Full Denture: Upper and Lower Heart: rr Lungs: cta Assessment and Plan Final Anesthetic Review Family History of Problems with Anesthesia: No History of Problems with Anesthesia: No NPO: Yes ASA Class: II Final Preanesthetic Review: No Changes in Pt Med Stat, Meds/Allgs Chart Reviewed, Consent Obtained/Reviewed and Anes Risks/Benef Reviewed Patient Risk: Low Procedure Risk: Low Anesthetic Plan Anesthetic Plan: MAC: Disposition: Standard PACU
== END 2022-04-24 10:48 | disposition home or self-care (01) ==
PROVIDERS: PCP Internal Medicine; Visit Provider Internal Medicine
PROC: 0DJD8ZZ Inspection of Lower Intestinal Tract, Via Natural or Artificial Opening Endoscopic (ICD-10-PCS; CPT 45378; principal; 2022-04-24 09:30)
DX: Z12.11 Encounter for screening for malignant neoplasm of colon (principal); Z86.010 Personal history of colon polyps; Z80.0 Family history of malignant neoplasm of digestive organs; D12.0 Benign neoplasm of cecum; D12.5 Benign neoplasm of sigmoid colon; K57.30 Diverticulosis of large intestine without perforation or abscess without bleeding; K64.8 Other hemorrhoids; K21.9 Gastro-esophageal reflux disease without esophagitis; K22.2 Esophageal obstruction; K76.0 Fatty (change of) liver, not elsewhere classified; Z90.49 Acquired absence of other specified parts of digestive tract; E78.5 Hyperlipidemia, unspecified; M10.9 Gout, unspecified; Z79.899 Other long term (current) drug therapy
CPT/HCPCS: 45385; 45380; 88305; J2250

== ENCOUNTER → 2022-05-03 12:30 | Outpatient (BNVA) | payer MEDICARE, SELFPAY | PROVIDERS: PCP Internal Medicine; Visit Provider Physician Assistant | DX: M1A.9XX1 Chronic gout, unspecified, with tophus (tophi) (principal) | CPT/HCPCS: 99212 ==

== ENCOUNTER 2022-06-12 13:13 | Outpatient (REF) | payer MEDICARE, SELFPAY | END 2022-06-12 13:14 | disposition home or self-care (01) | LOC: HO.SH 13:13 | PROVIDERS: Visit Provider Internal Medicine | DX: Z46.1 Encounter for fitting and adjustment of hearing aid (principal); H90.3 Sensorineural hearing loss, bilateral | CPT/HCPCS: 92557; 92567 ==

== ENCOUNTER → 2022-06-14 11:17 | Outpatient (BNVA) | payer MEDICARE, SELFPAY | PROVIDERS: PCP Internal Medicine; Visit Provider Physician Assistant ==

== ENCOUNTER 2022-06-14 11:51 | Outpatient (REF) | payer MEDICARE, SELFPAY ==
[2022-06-14 13:45] LABS: MANUAL DIFF FLAG NO
[2022-06-14 13:55] LABS: Basophils Absolute Auto 0.1 X10*3/uL (0.0-0.2); Basophils Percent Auto 0.8 % (0-2); Eosinophils Absolute Auto 0.2 X10*3/uL (0.0-0.4); Eosinophils Percent Auto 3.6 % (0-4); Hematocrit 48.5 % (42.0-52.0); Hemoglobin 16.5 g/dl (14.0-18.0); Imm Gran Abs Auto 0.02 X10*3/uL (0.00-0.03); Imm Gran Pct Auto 0.3 % (0.0-0.4); Lymphocytes Percent Auto 31.6 % (20-40); Mean Corpuscular Hemoglobin 29.3 pg (27.0-33.0); Mean Platelet Volume 11.5 fL (9.4-12.4); Monocytes Absolute Auto 0.5 X10*3/uL (0.1-1.2); Monocytes Percent Auto 7.4 % (2-11); Neutrophils Absolute Auto 3.6 x10*3/uL (2.0-8.3); Neutrophils Percent Auto 56.3 % (45-73); Platelet Count 181 X10*3/uL (160-400); Red Blood Count 5.64 X10*6/uL (4.60-5.80); Red Cell Distribution Width 12.3 % (11.0-16.0); White Blood Count 6.5 X10*3/uL (4.8-10.8)
[2022-06-14 14:10] LABS: Estimated Average Glucose 126 mg/dL
[2022-06-14 14:25] LABS: Alanine Aminotransferase 52 U/L (0-40); Albumin Level 4.2 g/dL (3.5-5.0); Alkaline Phosphatase 61 U/L (39-117); Anion Gap 14 (12-20); Aspartate Amino Transferase 32 U/L (5-37); Bilirubin Total 1.2 mg/dL (0.0-1.0); Blood Urea Nitrogen 15 mg/dL (9-16); Calcium 9.8 mg/dL (8.4-10.2); Carbon Dioxide 26 mmol/L (22-29); Chloride 106 mmol/L (96-108); Cholesterol 221 mg/dL; Estimated Glomerular Filt Rate > 60; Glucose Random 106 mg/dL (60-115); HDL Cholesterol 43 mg/dL; LDL Cholesterol Calculated 119 mg/dl; Potassium 5.3 mmol/L (3.3-5.1); Sodium 141 mmol/L (135-145); Total Protein 6.8 g/dL (6.5-8.0); Triglycerides 299 mg/dL; Uric Acid 7.5 mg/dL (3.4-7.0)
[2022-06-14 14:41] LABS: Folate 10.1 ng/mL (> or = 4.0); Free T4 (Free Thyroxine) 0.87 ng/dL (0.71-1.85); Prostate Specific Antigen Scr 0.54 ng/mL (<0.05-4.0); Thyroid Stimulating Hormone 1.86 uIU/mL (0.32-4.0); Vitamin B12 375 pg/mL (200-900)
== END 2022-06-14 11:52 | disposition home or self-care (01) ==
LOC: HO.10HDL 11:51
PROVIDERS: Visit Provider Internal Medicine
DX: Z12.5 Encounter for screening for malignant neoplasm of prostate (principal); R73.02 Impaired glucose tolerance (oral); E78.00 Pure hypercholesterolemia, unspecified; N40.1 Benign prostatic hyperplasia with lower urinary tract symptoms; R35.0 Frequency of micturition
CPT/HCPCS: 36415; 80053; 80061; 82607; 82746; 83036; 84153; 84439; 84443; 84550; 85025

== ENCOUNTER 2022-06-25 11:49 | Day surgery (SDC) | payer MEDICARE, SELFPAY ==
[2022-06-19 10:52] VITALS: BMI 31.1
--- NOTE | 2022-06-24 08:55 | HO.ANESPROP2 ---
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 (Acute) Benign positional vertigo (Acute) Impacted cerumen of both ears (Acute) Gout of right elbow (Acute) Constipation (Acute) Screening for prostate cancer (Acute) Umbilical hernia (Acute) Insomnia (Acute) Status post administration of all doses of COVID-19 vaccine series (Acute) Splenic artery aneurysm (Acute) BPH (benign prostatic hyperplasia) (Acute) Impaired glucose tolerance (Acute) Hypercholesterolemia (Acute) Erectile dysfunction (Acute) Past Medical History Medical History (Updated 06/19/22 @ 10:36 by Anu Sepulveda RN) Anxiety BPH (benign prostatic hyperplasia) Diverticulitis Erectile dysfunction Esophageal stricture Fatty liver GERD (gastroesophageal reflux disease) Gout H/O: pneumonia Hypercholesterolemia Impaired glucose tolerance Insomnia Left inguinal hernia Peripheral neuropathy Peroneal tendonitis of right lower extremity Restless leg syndrome Splenic artery aneurysm Status post administration of all doses of COVID-19 vaccine series Tubular adenoma Umbilical hernia Vitamin D deficiency Family History Family History Father CVD (cardiovascular disease) Heart problem Mother Pneumonia Brother CVD (cardiovascular disease) Prostate cancer Sister Ovarian cancer Sister Cancer Son In good health Daughter In good health Family history of problems with anesthesia: No Surgical History Surgical History (Updated 06/19/22 @ 10:36 by Anu Sepulveda RN) H/O esophagogastroduodenoscopy History of cataract surgery History of colonoscopy History of laparoscopic cholecystectomy History of surgery Status post appendectomy History of Problems with Anesthesia: No Social History Social History Housing: House Alcohol intake: current Alcohol intake frequency: a few times a month Alcohol type: beer Patient Tobacco Use Status: Never used Tobacco e-Cigarette/Vaping Use: Never Used Second Hand Smoke Exposure: No Use of substances other than those prescribed or required for medical reasons: No Are you DNR?: No Advance Directives: No Advance Directives Information Provided: Yes Recently lost weight without trying: No Nutrition Risks: No Nutritional Risk service: Yes 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al status: retired 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 Cognitive needs: No Hearing needs: No Vision needs: Yes Meds Allergies Allergy/AdvReac Type Severity Reaction Status Date / Time bee venom protein (honey bee) Allergy Severe Anaphylaxis Verified 04/24/22 08:30 Home Medications Medication Instructions Recorded Confirmed Last Taken Type allopurinol 100 mg tablet 100 mg PO DAILY 04/14/20 06/19/22 Unknown History (Zyloprim) fenofibrate 160 mg tablet 160 mg PO DAILY 04/14/20 06/19/22 Unknown History gabapentin 300 mg capsule 600 mg PO BEDTIME 05/02/20 06/19/22 Unknown History (Neurontin) pramipexole 0.5 mg tablet (Mirapex) 0.5 mg PO TID 05/02/20 06/19/22 Unknown History colchicine 0.6 mg tablet (Colcrys) 0.6 mg PO DAILY 04/24/22 06/19/22 Unknown History ezetimibe 10 mg tablet (Zetia) 10 mg PO DAILY 04/24/22 06/19/22 Unknown History ibuprofen 600 mg tablet (IBU) 600 mg PO TID PRN pain 04/24/22 06/19/22 04/16/22 History pantoprazole 40 mg tablet,delayed 40 mg PO DAILY 04/24/22 06/19/22 06/25/22 History release (Protonix) rosuvastatin 20 mg tablet (Crestor) 20 mg PO DAILY 04/24/22 06/19/22 Unknown History sildenafil 100 mg tablet (Viagra) 100 mg PO DAILY PRN sexual activity 04/24/22 06/19/22 Unknown History tamsulosin 0.4 mg capsule (Flomax) 0.4 mg PO BEDTIME 04/24/22 06/19/22 Unknown History zolpidem 5 mg tablet (Ambien) 5 mg PO BEDTIME PRN sleep 04/24/22 06/19/22 Unknown History epinephrine 0.3 mg/0.3 mL 0.3 ml IM Q10M PRN Anaphylaxis 06/19/22 06/19/22 Unknown History injection, auto-injector Exam Exam Date and Time: June 24, 2022 0855 Height,Weight and Vital Signs: Height 6 ft Weight 104.326 kg Pertinent Lab Results Pertinent Lab Results: Laboratory Tests 06/14/22 06/14/22 11:55 11:55 WBC 6.5 Hgb 16.5 Hct 48.5 Plt Count 181 Sodium 141 Potassium 5.3 H Chloride 106 Carbon Dioxide 26 BUN 15 Creatinine 0.86 Assessment and Plan Assessment Anesthesia Assessment: Chart Reviewed Final Anesthetic Review Family History of Problems with Anesthesia: No History of Problems with Anesthesia: No Documented by User: Eloy Solomon MD 06/25/22 16:25 [facility] Past Medical History Medical History (Updated 06/19/22 @ 10:36 by Anu Sepulveda RN) Anxiety BPH (benign prostatic hyperplasia) Diverticulitis Erectile dysfunction Esophageal stricture Fatty liver GERD (gastroesophageal reflux disease) Gout H/O: pneumonia Hypercholesterolemia Impaired glucose tolerance Insomnia Left inguinal hernia Peripheral neuropathy Peroneal tendonitis of right lower extremity Restless leg syndrome Splenic artery aneurysm Status post administration of all doses of COVID-19 vaccine series Tubular adenoma Umbilical hernia Vitamin D deficiency Functional capacity: independent ambulation Family History Family History Father CVD (cardiovascular disease) Heart problem Mother Pneumonia Brother CVD (cardiovascular disease) Prostate cancer Sister Ovarian cancer Sister Cancer Son In good health Daughter In good health Surgical History Surgical History (Updated 06/19/22 @ 10:36 by Anu Sepulveda RN) H/O esophagogastroduodenoscopy History of cataract surgery History of colonoscopy History of laparoscopic cholecystectomy History of surgery Status post appendectomy Social History Social History Housing: House Alcohol intake: current Alcohol intake frequency: a few times a month Alcohol type: beer Patient Tobacco Use Status: Never used Tobacco e-Cigarette/Vaping Use: Never Used Second Hand Smoke Exposure: No Use of substances other than those prescribed or required for medical reasons: No Are you DNR?: No Advance Directives: No Advance Directives Information Provided: Yes Recently lost weight without trying: No Nutrition Risks: No Nutritional Risk service: Yes 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al status: retired 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 Cognitive needs: No Hearing needs: No Vision needs: Yes Meds Allergies Allergy/AdvReac Type Severity Reaction Status Date / Time bee venom protein (honey bee) Allergy Severe Anaphylaxis Verified 04/24/22 08:30 Home Medications Medication Instructions Recorded Confirmed Last Taken Type allopurinol 100 mg tablet 100 mg PO DAILY 04/14/20 06/19/22 Unknown History (Zyloprim) fenofibrate 160 mg tablet 160 mg PO DAILY 04/14/20 06/19/22 Unknown History gabapentin 300 mg capsule 600 mg PO BEDTIME 05/02/20 06/19/22 Unknown History (Neurontin) pramipexole 0.5 mg tablet (Mirapex) 0.5 mg PO TID 05/02/20 06/19/22 Unknown History colchicine 0.6 mg tablet (Colcrys) 0.6 mg PO DAILY 04/24/22 06/19/22 Unknown History ezetimibe 10 mg tablet (Zetia) 10 mg PO DAILY 04/24/22 06/19/22 Unknown History ibuprofen 600 mg tablet (IBU) 600 mg PO TID PRN pain 04/24/22 06/19/22 04/16/22 History pantoprazole 40 mg tablet,delayed 40 mg PO DAILY 04/24/22 06/19/22 06/25/22 History release (Protonix) rosuvastatin 20 mg tablet (Crestor) 20 mg PO DAILY 04/24/22 06/19/22 Unknown History sildenafil 100 mg tablet (Viagra) 100 mg PO DAILY PRN sexual activity 04/24/22 06/19/22 Unknown History tamsulosin 0.4 mg capsule (Flomax) 0.4 mg PO BEDTIME 04/24/22 06/19/22 Unknown History zolpidem 5 mg tablet (Ambien) 5 mg PO BEDTIME PRN sleep 04/24/22 06/19/22 Unknown History epinephrine 0.3 mg/0.3 mL 0.3 ml IM Q10M PRN Anaphylaxis 06/19/22 06/19/22 Unknown History injection, auto-injector Exam Airway Mallampati Class: III TM Dist: >3cm Neck ROM: Full Loose/Missing/Broken Teeth: Yes (Caps , crowns and fillings ) Heart: S1,S2 Lungs: b/l breath sounds Assessment and Plan Assessment Anesthesia Assessment: Anesthesia Plan Discussed Final Anesthetic Review NPO: Yes ASA Class: II Final Preanesthetic Review: Meds/Allgs Chart Reviewed, Consent Obtained/Reviewed and Anes Risks/Benef Reviewed Patient Risk: Intermediate Procedure Risk: Intermediate Anesthetic Plan Anesthetic Plan: GA and Agree w/ Assess. and Plan Disposition: Standard PACU and Extended PACU
[2022-06-25] VITALS (7 sets, daily range): BP systolic 100–111; BP diastolic 47–73; PULSE 62–71; RESP 13–16; TEMP 36.2–36.4; O2SAT 94–100; BMI 30.5
[2022-06-25] MEDS: Lactated Ringers 1,000 ML 100 ML IVCONT (13:03)
[2022-06-25 13:16] LABS: Anion Gap 13 (12-20); Carbon Dioxide 25 mmol/L (22-29); Chloride 109 mmol/L (96-108); Potassium 3.9 mmol/L (3.3-5.1); Sodium 143 mmol/L (135-145)
--- NOTE | 2022-06-25 15:27 | P.BOP_ITS ---
Brief Operative Note Date of Service: 06/25/22 Pre-op diagnosis: Right olecranon tophi Post-op diagnosis: same Procedure: Resection right olecranon tophi Implants: none Surgeon: Silvestre García MD Anesthesia: GETA and local Was an Emergency Services Dispatcher used for this Procedure?: No Estimated blood loss (mL): 5 Tourniquet time (min): 20 IV fluids (mL): 800 Pathology: other Condition: stable Disposition: PACU
--- NOTE | 2022-06-25 15:27 | MHC.SHP ---
Pre-Procedural Eval Section A Date of Service: 06/25/22 The patient is an INPATIENT: No Changes since office visit: No Cold of Flu in the past 2 weeks, No New Medical Problems, No Changes in Medication and No Patient answered all questions The History & Physical has been completed within 30 days and I have reviewed it.: Yes Section B Chief Complaint: Chronic gout, unspecified, with tophus (tophi) Allergies: Allergies Allergy/AdvReac Type Severity Reaction Status Date / Time bee venom protein (honey bee) Allergy Severe Anaphylaxis Verified 04/24/22 08:30 Plan I have reviewed the history and physical and performed a pertinent physical examination on my patient. No changes have occurred unless specified. Time Spent With Patient Time: Total time managing care of this patient today ____ minutes.
--- NOTE | 2022-06-27 12:14 | W.PM.OPN ---
Operative Note Operative Note Date of Service: 06/25/22 Narrative: Date of Service: 06/25/22 Pre-op diagnosis: Right olecranon tophi Post-op diagnosis: same Procedure: Resection right olecranon tophi Implants: none Surgeon: Silvestre García MD Anesthesia: GETA and local Was an Structures Assembler used for this Procedure?: No Estimated blood loss (mL): 5 Tourniquet time (min): 20 IV fluids (mL): 800 Pathology: other Condition: stable Disposition: PACU Patient was brought to the operating room and placed supine on the surgical table. HE was prepped and draped in standard sterile fashion and a time out was called to indentify proper site, proper procedure and IV antibiotics per weight were administered. I began by making a midline posterior incision over the olecranon distal triceps. Immediately evident was large collection gouty tophi. I gently the tophi from undersurface of the dermis and then resected the tophi in its entirety. There were extensions throughout the olecranon bursa. Care was taken to avoid the ulnar nerve and it was not visualized. I used a combination of sharp dissection curette and rongeur to remove as much of the tophi as possible. I then irrigated copiously and closed with horizontal mattress nylon. Patient was injected before incision with local and placed in a soft suction dressing extubated brought to recovery room in stable condition there were no known complications.
== END 2022-06-25 16:46 | disposition home or self-care (01) ==
PROVIDERS: Nurse Practitioner; PCP Internal Medicine; Visit Provider Orthopaedic Surgery
PROC: (CPT 24071; principal; 2022-06-25 17:10)
DX: M1A.0211 Idiopathic chronic gout, right elbow, with tophus (tophi) (principal); M25.521 Pain in right elbow; G62.9 Polyneuropathy, unspecified; M76.9 Unspecified enthesopathy, lower limb, excluding foot; R73.02 Impaired glucose tolerance (oral); I72.8 Aneurysm of other specified arteries; E78.00 Pure hypercholesterolemia, unspecified; E55.9 Vitamin D deficiency, unspecified; G47.00 Insomnia, unspecified; F41.1 Generalized anxiety disorder; Z79.1 Long term (current) use of non-steroidal anti-inflammatories (NSAID); Z79.899 Other long term (current) drug therapy
CPT/HCPCS: 24071; 36415; 80051; 88304; 88305; J0690; J2250; J2405; J3010

== ENCOUNTER → 2022-07-01 12:17 | Outpatient (BNVA) | payer MEDICARE, SELFPAY | PROVIDERS: PCP Internal Medicine; Visit Provider Physician Assistant ==

== ENCOUNTER → 2022-07-11 14:54 | Outpatient (BNVA) | payer MEDICARE, SELFPAY | PROVIDERS: PCP Internal Medicine; Visit Provider Physician Assistant ==

== ENCOUNTER 2022-07-30 09:37 | Outpatient (REF) | payer MEDICARE, SELFPAY ==
[2022-07-30 11:09] LABS: Blood Urea Nitrogen 18 mg/dL (9-16); Estimated Glomerular Filt Rate > 60
== END 2022-07-30 09:38 | disposition home or self-care (01) ==
LOC: HO.10HDL 09:37
PROVIDERS: Visit Provider Internal Medicine
DX: I72.8 Aneurysm of other specified arteries (principal)
CPT/HCPCS: 36415; 82565; 84520

== ENCOUNTER 2022-08-05 10:06 | Outpatient (REF) | payer MEDICARE, SELFPAY ==
--- NOTE | ~2022-08-05 | CT_ITS ---
EXAMINATION: CT ABDOMEN AND PELVIS WITH CONTRAST CLINICAL INFORMATION: Aneurysm COMPARISON: Previous CT of the abdomen and pelvis most recent April 2021 TECHNIQUE: Multidetector volumetric images were obtained from the superior aspect of the liver through the pubic symphysis following administration 85 mL of Omnipaque 350 intravenous contrast. Sagittal and coronal reformatted images were obtained on the technologist's workstation. Oral contrast: Yes This CT examination was performed using dose optimization techniques as appropriate, variously including the following: *Automated exposure control *Adjustment of mA and/or kV according to patient size (this includes techniques or standardized protocols for targeted exams where dose is matched to indication/reason for exam; i.e. extremities or head) *Use of iterative reconstruction technique DLP: 724 mGy-cm FINDINGS: LUNG BASES: The visualized lung bases are unremarkable. LIVER, GALLBLADDER, AND BILIARY TREE: The liver is low in attenuation suggestive of fatty infiltration. No focal liver lesion. The gallbladder is been removed. There is pneumobilia. No biliary duct dilatation. PANCREAS: Unremarkable. SPLEEN: Unremarkable. ADRENAL GLANDS: Unremarkable. KIDNEYS AND URETERS: Small bilateral renal cysts. Largest cyst measures 3 cm exophytic to the midpole of the right kidney. No imaging follow-up recommended. The kidneys are normal in size, shape, and attenuation. No hydronephrosis, hydroureter, or calculi seen. No perinephric stranding. BLADDER: Unremarkable. GASTROINTESTINAL TRACT: Diverticulosis of the colon. No evidence of diverticulitis. The appendix appears to have been removed. There is a duodenal diverticulum adjacent to the head of the pancreas.. ABDOMINAL WALL: Large umbilical hernia containing fat. Left inguinal hernia containing fat. Small right inguinal hernia or bulge containing fat. LYMPH NODES: Normal. VASCULAR: There is a small 9 mm splenic artery aneurysm. This is similar to previous exam. No other aneurysm is seen. There is evidence of atherosclerotic disease. PELVIC VISCERA: The prostate gland is enlarged and measures 4.4 x 5.4 cm in AP and transverse. OSSEOUS STRUCTURES: There are degenerative changes of the spine. CT/CT abdomen pelvis w IV con IMPRESSION: Stable 9 mm splenic artery aneurysm. Fatty liver. Bilateral renal cysts. Diverticulosis of the colon. Umbilical and bilateral inguinal hernias containing fat. Fleischner guidelines were followed.
[2022-08-05] MEDS: iohexoL 350 MG/ML 100 ML INFUS..BTL 85 ML IV (11:02)
== END 2022-08-05 10:07 | disposition home or self-care (01) ==
LOC: HO.CT 10:06
PROVIDERS: PCP Internal Medicine; Visit Provider Internal Medicine
DX: I72.8 Aneurysm of other specified arteries (principal)
CPT/HCPCS: 74177; Q9967

== ENCOUNTER 2022-09-04 08:52 | Outpatient (REF) | payer MEDICARE, SELFPAY ==
[2022-09-04 10:39] LABS: MANUAL DIFF FLAG NO
[2022-09-04 10:42] LABS: Basophils Percent Auto 0.7 % (0-2); Eosinophils Absolute Auto 0.2 X10*3/uL (0.0-0.4); Eosinophils Percent Auto 3.8 % (0-4); Hematocrit 46.3 % (42.0-52.0); Hemoglobin 15.8 g/dl (14.0-18.0); Imm Gran Abs Auto 0.01 X10*3/uL (0.00-0.03); Imm Gran Pct Auto 0.2 % (0.0-0.4); Lymphocytes Absolute Auto 1.9 X10*3/uL (1.2-4.9); Lymphocytes Percent Auto 31.6 % (20-40); Mean Corpuscular HGB Conc 34.1 g/dl (31.0-36.0); Mean Corpuscular Hemoglobin 30.2 pg (27.0-33.0); Mean Corpuscular Volume 88.5 fL (80.0-98.0); Mean Platelet Volume 11.8 fL (9.4-12.4); Monocytes Absolute Auto 0.5 X10*3/uL (0.1-1.2); Monocytes Percent Auto 8.4 % (2-11); Neutrophils Absolute Auto 3.4 x10*3/uL (2.0-8.3); Neutrophils Percent Auto 55.3 % (45-73); Platelet Count 158 X10*3/uL (160-400); Red Blood Count 5.23 X10*6/uL (4.60-5.80); Red Cell Distribution Width 13.2 % (11.0-16.0); White Blood Count 6.1 X10*3/uL (4.8-10.8)
[2022-09-04 10:53] LABS: Estimated Average Glucose 114 mg/dL; Hemoglobin A1c % 5.6 %
[2022-09-04 10:55] LABS: Anion Gap 11 (12-20)
[2022-09-04 11:05] LABS: Alanine Aminotransferase 49 U/L (0-40); Albumin Level 4.1 g/dL (3.5-5.0); Alkaline Phosphatase 68 U/L (39-117); Aspartate Amino Transferase 27 U/L (5-37); Bilirubin Total 1.1 mg/dL (0.0-1.0); Blood Urea Nitrogen 20 mg/dL (9-16); Calcium 9.5 mg/dL (8.4-10.2); Carbon Dioxide 27 mmol/L (22-29); Chloride 107 mmol/L (96-108); Cholesterol 236 mg/dL; Estimated Glomerular Filt Rate > 60; Glucose Random 131 mg/dL (60-115); HDL Cholesterol 42 mg/dL; LDL Cholesterol Calculated 140 mg/dl; Potassium 4.3 mmol/L (3.3-5.1); Sodium 141 mmol/L (135-145); Total Protein 6.9 g/dL (6.5-8.0); Triglycerides 273 mg/dL
[2022-09-04 11:13] LABS: Uric Acid 5.9 mg/dL (3.4-7.0)
[2022-09-04 11:18] LABS: Prostate Specific Antigen 0.47 ng/mL (<0.05-4.0)
== END 2022-09-04 08:53 | disposition home or self-care (01) ==
LOC: HO.10HDL 08:52
PROVIDERS: Urology; Visit Provider Internal Medicine
DX: R73.02 Impaired glucose tolerance (oral) (principal); E78.00 Pure hypercholesterolemia, unspecified; M10.9 Gout, unspecified; R42 Dizziness and giddiness; N40.1 Benign prostatic hyperplasia with lower urinary tract symptoms; N13.8 Other obstructive and reflux uropathy; R35.0 Frequency of micturition; Z12.5 Encounter for screening for malignant neoplasm of prostate
CPT/HCPCS: 36415; 80053; 80061; 83036; 84153; 84550; 85025

== ENCOUNTER → 2022-09-11 12:52 | Outpatient (BNVA) | payer MEDICARE, SELFPAY | PROVIDERS: PCP Internal Medicine; Visit Provider Urology | DX: N40.1 Benign prostatic hyperplasia with lower urinary tract symptoms (principal); R35.0 Frequency of micturition; N52.9 Male erectile dysfunction, unspecified | CPT/HCPCS: 51798; 99212 ==

== ENCOUNTER 2022-09-19 09:50 | Outpatient (REF) | payer MEDICARE, SELFPAY ==
--- NOTE | ~2022-09-19 | CT_ITS ---
EXAMINATION: CT ANGIOGRAM ABDOMEN CLINICAL INFORMATION: Splenic artery aneurysm. COMPARISON: CT scan of 6 weeks ago on 08/05/2022: Stable 9 mm splenic artery aneurysm . Additional CT abdomen and pelvis 10/30/2018 and 02/14/2011. TECHNIQUE: Multiple axial images were obtained through the abdomen following the administration of 80 mL Omnipaque 350 intravenous contrast. Images were reviewed on a dedicated 3-D workstation. This CT examination was performed using dose optimization techniques as appropriate, variously including the following: *Automated exposure control *Adjustment of mA and/or kV according to patient size (this includes techniques or standardized protocols for targeted exams where dose is matched to indication/reason for exam; i.e. extremities or head) *Use of iterative reconstruction technique DLP: 250 mGy-cm VASCULAR FINDINGS: The abdominal aorta and visualized iliac vessels show mild calcific plaque without aneurysm or dissection. The celiac, SMA and BENJAMIN are patent. Again seen is a small 9 mm splenic aneurysm seen near the splenic hilum which has rim calcification. There has been no change when compared to the study from 6 weeks ago, but this interval is meaningless. Would recommend a follow-up exam in 2-3 years given its tiny size of under 1 cm. No other visceral aneurysms are seen. NONVASCULAR FINDINGS: Lung Bases: The visualized lung bases are unremarkable. Liver, Gallbladder, And Biliary Tree: The liver is mildly enlarged with decreased attenuation suggesting hepatic steatosis. No focal hepatic lesion or biliary ductal dilatation is present. The gallbladder is unremarkable with no evidence of radiopaque gallstones, gallbladder wall thickening, or obvious pericholecystic inflammatory changes. Pancreas: Unremarkable. Spleen: There is mild splenomegaly at 12.7 cm. Adrenal Glands: Unremarkable. Kidneys And Ureters: The kidneys are normal in size, shape, and attenuation. No hydronephrosis, hydroureter, or calculi seen. There is a benign Bosniak class I right renal cyst which needs no additional followup. There is a smaller 1.4 cm right mid renal posterior mass which is indeterminate because of attenuation near 30 Hounsfield units. However this has been present on prior studies (for example 25:98) and I suspect this is a hemorrhagic hyperattenuating Bosniak class II cyst. No nephrocalcinosis. No hydronephrosis. Gastrointestinal Tract: Colonic diverticula are seen without diverticulitis. Surgical clips present in the right lower quadrant. Abdominal Wall: There is a periumbilical hernia seen containing only fat. Lymph Nodes: No retroperitoneal lymphadenopathy. Osseous Structures: Degenerative changes are seen in the lumbar spine most marked from L3 through S1. No bony destructive lesions. CT/CT angio abdomen IMPRESSION: 1. The 9 mm splenic artery aneurysm is unchanged when compared to the study from 6 weeks ago, but this interval is meaningless. Would recommend a follow-up exam in 2-3 years given its tiny size. 2. Incidental note made of mildly enlarged fatty liver, mild splenomegaly, benign Bosniak class I and class II renal cysts which need no additional followup and degenerative changes in the spine. Fleischner guidelines were followed.
[2022-09-19] MEDS: iohexoL 350 MG/ML 100 ML INFUS..BTL IV (11:16)
== END 2022-09-19 09:51 | disposition home or self-care (01) ==
LOC: HO.CT 09:50
PROVIDERS: Visit Provider Internal Medicine
DX: I72.8 Aneurysm of other specified arteries (principal)
CPT/HCPCS: 74175; Q9967

== ENCOUNTER 2022-11-25 11:56 | Outpatient (REF) | payer MEDICARE, SELFPAY ==
[2022-11-29 21:13] LABS: Testosterone, Free 41.1 pg/mL (30.0-135.0); Testosterone, Total 242 ng/dL (250-1100)
== END 2022-11-25 11:57 | disposition home or self-care (01) ==
LOC: HO.10HDL 11:56
PROVIDERS: Visit Provider Urology
DX: N52.9 Male erectile dysfunction, unspecified (principal)
CPT/HCPCS: 36415; 84402; 84403

== ENCOUNTER 2022-12-10 15:32 | Outpatient (AMB) | payer MEDICARE, SELFPAY ==
--- NOTE | 2022-12-10 15:33 | MHC.OFFVIS ---
Intake Intake Visit Reasons: 3m/Testosterone(set) Intake Note: Patient is present for Telephone Testosterone follow up Urology Med: Tadalafil, Tamsulosin Antibiotic Allergy:None Blood Thinner: None Pharmacy: [facility] Allergies bee venom protein (honey bee) Allergy (Severe, Verified 12/10/22 15:37) Anaphylaxis Medication List - Last Reconciled 12/10/22 by Donato Lund MD allopurinol 300 mg PO DAILY epinephrine 0.3 mL IM Q10M PRN ezetimibe 10 mg PO DAILY fenofibrate 160 mg PO DAILY gabapentin (Neurontin) 600 mg PO BEDTIME hydrocodone-acetaminophen 5-325 mg 1 tab PO Q8H PRN 5 days ibuprofen (IBU) 600 mg PO TID PRN methylprednisolone 0 mg PO pantoprazole (Protonix) 40 mg PO DAILY pramipexole (Mirapex) 0.5 mg PO TID psyllium husk (Fiber (psyllium husk)) 0.4 grams PO BEDTIME PRN rosuvastatin (Crestor) 20 mg PO DAILY sennosides-docusate sodium 8.6-50 mg (Senna with Docusate Sodium) 2 tab-caps (2 x 8.6-50 mg) PO BEDTIME 30 days tadalafil 10 mg PO DAILY 90 days tamsulosin (Flomax) 0.4 mg PO BEDTIME zolpidem (Ambien) 5 mg PO BEDTIME PRN HPI HPI Comments History of Present Illness Details Darrius is a pleasant male. He is a patient of Dr. Cazares. He is seen for the following urologic conditions - BPH - hypogonadism Telemedicine Evaluation 15 min Consultation [employer] [place] Video attempted Testosterone shows low normal total with low normal free T Continue with 10 mg Cialis daily Repeat lab work in 3 months Lower urinary tract symptoms Current visit for symptom evaluation minimal nocturia effective stream current medications tamsulosin PSA 10/25 0.5, 06/27 0.54 Erectile Dysfunction - not currently using therapy testosterone 380, FSH mildly elevated - 11/27 T 242 FT 41 PFSH Medical History Adult general medical exam Anxiety BPH (benign prostatic hyperplasia) Diverticulitis Dizziness Elbow pain, right Erectile dysfunction Esophageal stricture Fatty liver GERD (gastroesophageal reflux disease) Gout H/O: pneumonia Hypercholesterolemia Impacted cerumen of both ears Impaired glucose tolerance Insomnia Left inguinal hernia Olecranon bursitis, right elbow Onychomycosis Peripheral neuropathy Peroneal tendonitis of right lower extremity Restless leg syndrome Screening for colon cancer Screening for prostate cancer Splenic artery aneurysm Status post administration of all doses of COVID-19 vaccine series Tubular adenoma Umbilical hernia Vitamin D deficiency Surgical History H/O esophagogastroduodenoscopy History of cataract surgery History of colonoscopy History of laparoscopic cholecystectomy History of surgery Status post appendectomy Family History Father CVD (cardiovascular disease) Heart problem Mother Pneumonia Brother CVD (cardiovascular disease) Prostate cancer Sister Ovarian cancer Sister Cancer Son In good health Daughter In good health Social History Housing: House Alcohol intake: current Alcohol intake frequency: a few times a month Alcohol type: beer Patient Tobacco Use Status: Never used Tobacco e-Cigarette/Vaping Use: Never Used Second Hand Smoke Exposure: No service: Yes 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al status: retired 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 Cognitive needs: No Hearing needs: No Vision needs: Yes Review of Systems Const All systems reviewed & are unremarkable except as noted in HPI and below Reports no additional complaints Resp Reports no additional complaints GI Reports no additional complaints Reports as per HPI Musc Reports no additional complaints Physical Exam Telemedicine evaluation Appropriate responses Regular breathing rate and rhythm HEENT Head: Yes normal to inspection Ears: hearing grossly normal bilaterally Eyes General: appearance normal, both eyes and all related structures Neck Neck: Yes normal visual inspection Chest Chest palpation & inspection: normal inspection of the chest Resp Effort & Inspection: normal respiratory effort and able to speak in complete sentences Assessment & Plan Assessment & Plan (1) Low libido: Code(s): R68.82 - Decreased libido (2) MCGRATH (nonalcoholic steatohepatitis): Code(s): K75.81 - Nonalcoholic steatohepatitis (MCGRATH) Plan Three month follow-up Orders: Orders Prostate Specific Antigen 3 Months R68.82 - Decreased libido Testosterone, Free/Total 3 Months R68.82 - Decreased libido Lutenizing Hormone 3 Months R68.82 - Decreased libido Lipid Panel 3 Months E11.9 - Type 2 diabetes mellitus without complications, R68.82 - Decreased libido Sex Hormone Binding Globulin 3 Months R68.82 - Decreased libido Medications: Changed From tadalafil 5 mg PO DAILY 90 tabs 0RF sexual activity 90 days N52.9 - Male erectile dysfunction, unspecified To tadalafil 10 mg PO DAILY 90 tabs 0RF sexual activity 90 days N52.9 - Male erectile dysfunction, unspecified Patient Instructions: Imaging studies, laboratory and physical exam results were discussed and reviewed in detail. No major barriers to patient understanding were identified. An opportunity to ask questions regarding the treatment plan was provided. All questions were answered. The patient expressed understanding and agreement with the above treatment plan. The patient is aware they should contact our office by phone for worsening of their current condition or the appearance of new urologic symptoms. Compliance is encouraged with any medications and followup testing that is ordered. It is a privilege to participate in the urologic care of your patient. If you have any questions or concerns regarding treatment for the above conditions, or other urologic issues, please do not hesitate to contact me. The office telephone contact is [phone]. This note is constructed using voice recognition software. While every effort has been made to ensure accuracy computer numerical control operator errors may have been included. Yours sincerely, Dr Donato Lund MD, [facility] - Urology Providers of Expert, Compassionate Care for the Genitourinary System Telehealth Telehealth Location of provider rendering services: practice address Location of patient: address on file Patient Identification confirmed using: Name, : Yes Telehealth method: video Patient verbally consented to treatment: Yes Patient verbally consented to billing insurance company: Yes Patient informed of any privacy concerns related to visit: Yes Coding Level of Care Code Tele Est Pt Level 3 (54087) Diagnoses Low libido R68.82 MCGRATH (nonalcoholic steatohepatitis) K75.81
== END 2022-12-10 16:18 | disposition home or self-care (01) ==
LOC: HO.HUSH 15:32
PROVIDERS: PCP Internal Medicine; Visit Provider Urology
DX: R68.82 Decreased libido (principal); K75.81 Nonalcoholic steatohepatitis (NASH)
CPT/HCPCS: 99213

== ENCOUNTER → 2022-12-10 15:32 | Outpatient (BNVA) | payer MEDICARE, SELFPAY | PROVIDERS: PCP Internal Medicine; Visit Provider Urology ==

== ENCOUNTER 2023-01-23 11:16 | Outpatient (AMB) | payer MEDICARE, SELFPAY ==
[2023-01-23 11:16] VITALS: BP 122/70; PULSE 57; O2SAT 96; BMI 30.2
--- NOTE | 2023-01-23 11:16 | MHC.PC.OV ---
Vital Signs 01/23/23 11:16 Height 6 ft Weight 223 lb 0.4 oz BMI 30.2 BP 122/70 Blood Pressure Location Lt brachial Position Sitting Pulse 57 Pulse Source Pulse Oximeter Pulse Oximetry (%) 96 Oxygen Delivery Method Room Air Intake Visit Reasons: [facility] /01/12/23 Intake Note: Patient is here for hospital discharge follow up. Patient was discharged from [facility] on 01/12/23 [employer] Required: No Allergies bee venom protein (honey bee) Allergy (Severe, Verified 01/23/23 11:25) Anaphylaxis Medication List - Last Reconciled 01/23/23 by OPHELIA Reddy allopurinol 300 mg PO DAILY epinephrine 0.3 mL IM Q10M PRN ezetimibe 10 mg PO DAILY fenofibrate 160 mg PO DAILY gabapentin (Neurontin) 600 mg PO BEDTIME hydrocodone-acetaminophen 5-325 mg 1 tab PO Q8H PRN 5 days ibuprofen (IBU) 600 mg PO TID PRN methylprednisolone 0 mg PO pantoprazole (Protonix) 40 mg PO DAILY pramipexole (Mirapex) 0.5 mg PO TID psyllium husk (Fiber (psyllium husk)) 0.4 grams PO BEDTIME PRN rosuvastatin (Crestor) 20 mg PO DAILY sennosides-docusate sodium 8.6-50 mg (Senna with Docusate Sodium) 2 tab-caps (2 x 8.6-50 mg) PO BEDTIME 30 days tadalafil 10 mg PO DAILY 90 days tamsulosin (Flomax) 0.4 mg PO BEDTIME zolpidem (Ambien) 5 mg PO BEDTIME PRN Tobacco use date assessed: 01/23/23 Fall risk assessment: No Falls in past year Last assessed Fall Risk: 01/23/[address] [facility] /01/12/23 HPI Details Patient is a 77-year-old male who presents today to follow-up after being discharged from [facility]. Patient of Dr. Cazares. Admission date 01/12/2023, discharge date 01/13/2023. Discharge diagnosis pneumonia due to COVID-19 virus, cough, GERD. Patient presented to ED with 3 days fevers, cough, congestion, diffuse myalgias. Cough was managed with Tessalon Perles, guaifenesin codeine and as needed albuterol inhaler. Chest x-ray showed patchy airspace opacity left lower lung suspicious for pneumonia. Patient is to follow-up outpatient with his PCP in about 1 week and get repeat chest x-ray for follow-up on the lung infiltrate in about 1-2 weeks. Today, patient reports that he is improving, he reports intermittent dry cough, he did not take anything for cough today. Reports nasal congestion, no discharge. No shortness of breath, wheezes, chest pain, fever. [facility] Medical History Esophageal stricture Diverticulitis Peripheral neuropathy H/O: pneumonia Tubular adenoma Screening for prostate cancer Olecranon bursitis, right elbow Elbow pain, right Onychomycosis Adult general medical exam Screening for colon cancer Dizziness Impacted cerumen of both ears Status post administration of all doses of COVID-19 vaccine series Anxiety Vitamin D deficiency Fatty liver Insomnia Restless leg syndrome Gout Umbilical hernia Left inguinal hernia Impaired glucose tolerance Hypercholesterolemia BPH (benign prostatic hyperplasia) GERD (gastroesophageal reflux disease) Erectile dysfunction Splenic artery aneurysm Peroneal tendonitis of right lower extremity Surgical History H/O esophagogastroduodenoscopy History of colonoscopy History of surgery History of laparoscopic cholecystectomy History of cataract surgery Status post appendectomy Family History Father CVD (cardiovascular disease) Heart problem Mother Pneumonia Brother CVD (cardiovascular disease) Prostate cancer Sister Ovarian cancer Sister Cancer Son In good health Daughter In good health Social History Housing: House Alcohol intake: current Alcohol intake frequency: a few times a month Alcohol type: beer Patient Tobacco Use Status: Never used Tobacco e-Cigarette/Vaping Use: Never Used Second Hand Smoke Exposure: No service: Yes 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al status: retired 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 How often do you have a drink containing alcohol?: 2-3 times a week 2. How many drinks containing alcohol do you have on a typical day when you are drinking?: 1 or 2 3. How often do you have six or more drinks on one occasion?: Never Total Score: 3 Score Reviewed/Action Taken: No STEPHANIE-7 AMB Questionnaire STEPHANIE-7 Date STEPHANIE - 7 assessed: 07/04/22 Source: Developed by Drs. Matt Mcqueen, Genny Bailey, Michele Shah and colleagues, with an educational micaela from [employer]. Review of Systems Const Denies body aches, Denies chills, Denies fever(s) and Denies headache(s) ENT Denies dizziness, Denies otalgia, Denies headache(s), Reports nasal congestion, Denies nasal discharge, Denies sinus pain and Denies sore throat Card Denies chest pain, Denies edema, Denies lightheadedness and Denies dyspnea Resp Reports cough, Denies dyspnea and Denies wheezing GI Denies abdominal pain Denies dysuria Musc Denies myalgias Neuro Denies dizziness and Denies headache(s) Aller/Immun Denies wheezing Physical exam (Primary Care) Vital Signs: Last Vital Signs Pulse 57 01/23/23 11:16 BP 122/70 01/23/23 11:16 Pulse Ox 96 01/23/23 11:16 Oxygen Delivery Method Room Air 01/23/23 11:16 BMI result Body Mass Index 30.2 Tobacco/Smoking Status: Tobacco use Status Tobacco use date assessed 01/23/23 01/23/23 11:17 Patient Tobacco Use Status Never used Tobacco 01/23/23 11:17 e-Cigarette/Vaping Use Never Used 01/23/23 11:17 Thrive Assessment: Date of Thrive Assessment Date Thrive assessed 07/04/22 01/23/23 11:17 Const General: cooperative and no acute distress Orientation/consciousness: patient oriented x3 HENMT Head: Yes normocephalic and Yes atraumatic Face and sinus: Yes sinuses nontender Mouth: oropharynx normal and moist mucous membranes Throat: Yes posterior oropharynx normal Eyes General: appearance normal, both eyes and all related structures Neck Neck: Yes normal visual inspection, Yes full ROM and Yes no lymphadenopathy Resp Effort & Inspection: normal respiratory effort, able to speak in complete sentences and Actively coughing (Mild) Quality: dry Auscultation: clear to auscultation bilaterally, no crackles, no rales, no rhonchi and no wheezes Cardio Rate: regular rate Rhythm: regular rhythm Heart sounds: S1 normal heart sound present and S2 normal heart sound present GI Auscultation: normal bowel sounds Neuro General: patient oriented x3 Gait exam (Neuro): Normal gait present Extrem General: Yes full ROM and No edema Assessment and Plan Assessment & Plan (1) Nasal congestion: Code(s): R09.81 - Nasal congestion Plan: Start Flonase nasal spray daily (2) Pneumonia due to COVID-19 virus: Code(s): U07.1 - COVID-19; - Pneumonia due to coronavirus disease 2019 Plan: Patient reports that his symptoms are improving Patient is to continue guaifenesin/codeine 10 mL every 4 some hours as needed for cough Will repeat chest x-ray in 2 weeks Signs and symptoms reviewed when to notify provider or go to the emergency department Patient agreed with the plan Orders: Orders XR chest 2V 2 Weeks - Pneumonia due to coronavirus disease 2019, U07.1 - COVID-19 Medications: New fluticasone propionate 50 mcg/actuation (Flonase Allergy Relief) administer into each nostril 1 spray intranasal DAILY 100 mL 0RF R09.81 - Nasal congestion Coding Level of Care Code Est Pt Level 3 (48132) Diagnoses Nasal congestion R09.81 Pneumonia due to COVID-19 virus U07.1;
== END 2023-01-23 12:26 | disposition home or self-care (01) ==
PROVIDERS: PCP Internal Medicine; Visit Provider Nurse Practitioner Family
DX: R09.81 Nasal congestion (principal); U07.1 COVID-19; J12.82 Pneumonia due to coronavirus disease 2019
CPT/HCPCS: 99213

== ENCOUNTER 2023-02-05 11:43 | Outpatient (REF) | payer MEDICARE, SELFPAY ==
--- NOTE | ~2023-02-05 | XR_ITS ---
EXAMINATION: XR CHEST CLINICAL INFORMATION: Covid 19 COMPARISON: Chest 04/28/2019 TECHNIQUE: 2 views of the chest were obtained. FINDINGS: No significant abnormality is noted involving the heart, lungs, mediastinum or soft tissues. Degenerative changes involve the thoracic spine. XR/XR chest 2V IMPRESSION: No acute cardiopulmonary disease.
== END 2023-02-05 11:44 | disposition home or self-care (01) ==
LOC: HO.XRAY 11:43
PROVIDERS: PCP Internal Medicine; Visit Provider Nurse Practitioner Family
DX: U07.1 COVID-19 (principal); J12.82 Pneumonia due to coronavirus disease 2019
CPT/HCPCS: 71046

== ENCOUNTER 2023-03-05 11:19 | Outpatient (REF) | payer MEDICARE, SELFPAY ==
[2023-03-05 15:04] LABS: Prostate Specific Antigen 0.49 ng/mL (<0.05-4.0)
[2023-03-06 09:33] LABS: Lutenizing Hormone 2.5 mIU/mL (1.6-15.2); Sex Hormone Binding Globulin 39 nmol/L (22-77)
[2023-03-09 14:44] LABS: Testosterone, Free 50.2 pg/mL (30.0-135.0); Testosterone, Total 312 ng/dL (250-1100)
== END 2023-03-05 11:20 | disposition home or self-care (01) ==
LOC: HO.WFDLDS 11:19
PROVIDERS: Visit Provider Urology
DX: Z12.5 Encounter for screening for malignant neoplasm of prostate (principal); R68.82 Decreased libido
CPT/HCPCS: 36415; 83002; 84153; 84270; 84402; 84403

== ENCOUNTER 2023-03-12 13:04 | Outpatient (AMB) | payer MEDICARE, SELFPAY ==
--- NOTE | 2023-03-12 13:17 | A.OFFVIS_ITS ---
Intake Intake Visit Reasons: 3m/labs(Testo pending) Intake Note: Patient is Present for Follow Up LABS Urology Medication: Tadalafil Antibiotic Allergies:None Blood Thinners: None Patient states that he is no longer on tamsulosin feels like he no longer needs the medication. Has no urinary issues at moment Allergies bee venom protein (honey bee) Allergy (Severe, Verified 03/12/23 13:20) Anaphylaxis Medication List - Last Reconciled 03/12/23 by Donato Lund MD allopurinol 300 mg PO DAILY epinephrine 0.3 mL IM Q10M PRN ezetimibe 10 mg PO DAILY fenofibrate 160 mg PO DAILY fluticasone propionate 50 mcg/actuation (Flonase Allergy Relief) 1 spray intranasal DAILY gabapentin (Neurontin) 600 mg PO BEDTIME methylprednisolone 0 mg PO pantoprazole (Protonix) 40 mg PO DAILY pramipexole (Mirapex) 0.5 mg PO TID psyllium husk (Fiber (psyllium husk)) 0.4 grams PO BEDTIME PRN rosuvastatin (Crestor) 20 mg PO DAILY sennosides-docusate sodium 8.6-50 mg (Senna with Docusate Sodium) 2 tab-caps (2 x 8.6-50 mg) PO BEDTIME 30 days tadalafil 10 mg PO DAILY 90 days tamsulosin (Flomax) 0.4 mg PO BEDTIME zolpidem (Ambien) 5 mg PO BEDTIME PRN HPI HPI Comments History of Present Illness Details Darrius is a pleasant male. He is a patient of Dr. Cazares. He is seen for the following urologic conditions - BPH - hypogonadism Testosterone shows low normal total with low normal free T Continue with 10 mg Cialis daily and 20mg on demand 6m f/u Lower urinary tract symptoms Current visit for symptom evaluation minimal nocturia effective stream current medications tamsulosin PSA 10/25 0.5, 06/27 0.54 Erectile Dysfunction - not currently using therapy testosterone 380, FSH mildly elevated - 11/27 T 242 FT 41, 02/27 T 312 FT 50 PFSH Medical History Esophageal stricture Diverticulitis Peripheral neuropathy H/O: pneumonia Tubular adenoma Screening for prostate cancer Olecranon bursitis, right elbow Elbow pain, right Onychomycosis Adult general medical exam Screening for colon cancer Dizziness Impacted cerumen of both ears Status post administration of all doses of COVID-19 vaccine series Anxiety Vitamin D deficiency Fatty liver Insomnia Restless leg syndrome Gout Umbilical hernia Left inguinal hernia Impaired glucose tolerance Hypercholesterolemia BPH (benign prostatic hyperplasia) GERD (gastroesophageal reflux disease) Erectile dysfunction Splenic artery aneurysm Peroneal tendonitis of right lower extremity Surgical History H/O esophagogastroduodenoscopy History of colonoscopy History of surgery History of laparoscopic cholecystectomy History of cataract surgery Status post appendectomy Family History Father CVD (cardiovascular disease) Heart problem Mother Pneumonia Brother CVD (cardiovascular disease) Prostate cancer Sister Ovarian cancer Sister Cancer Son In good health Daughter In good health Social History Housing: House Alcohol intake: current Alcohol intake frequency: a few times a month Alcohol type: beer Patient Tobacco Use Status: Never used Tobacco e-Cigarette/Vaping Use: Never Used Second Hand Smoke Exposure: No service: Yes 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al status: retired 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 Cognitive needs: No Hearing needs: No Vision needs: Yes Review of Systems Const Denies chills and Denies fever(s) Card Reports no additional complaints and Denies syncope Resp Denies cough GI Denies abdominal pain and Denies heartburn Reports as per HPI and Denies change in libido Neuro Denies syncope Psych Denies change in libido Endo Denies change in libido Physical Exam Const General: cooperative, healthy appearing, comfortable and no acute distress Orientation/consciousness: patient oriented x3 HEENT Face and sinus: Yes normal facial exam Mouth: moist mucous membranes Neck Neck: Yes normal visual inspection, Yes full ROM and Yes trachea midline Chest Chest palpation & inspection: normal inspection of the chest Resp Effort & Inspection: normal respiratory effort, able to speak in complete sentences and no respiratory distress GI Inspection: Yes normal to inspection Back/Spine/Pelvis Cervical Spine: normal cervical lordosis Thoracic/Lumbar Spine: thoracic and lumbar spine normal to inspection Skin General skin exam: no rashes or lesions noted Neuro General: patient oriented x3, gait normal, tone normal and moves all extremities Extrem General: Yes normal to inspection and Yes capillary refill normal Assessment & Plan Assessment & Plan (1) Hypogonadism in male: Code(s): E29.1 - Testicular hypofunction (2) Erectile dysfunction: Comment: Currently no treatment plan Code(s): N52.9 - Male erectile dysfunction, unspecified Plan Six month follow-up Orders: Orders Testosterone, Free/Total 6 Months E29.1 - Testicular hypofunction, R68.82 - Decreased libido Medications: New tadalafil On demand medication take 60 minutes before intended activity 20 mg PO ONCE 30 days PRN 30 tabs 0RF sexual activity E11.69 - Type 2 diabetes mellitus with other specified complication, E29.1 - Testicular hypofunction, N52.1 - Erectile dysfunction due to diseases classified elsewhere Refilled tadalafil 10 mg PO DAILY 90 days 90 tabs 1RF sexual activity N52.9 - Male erectile dysfunction, unspecified Patient Instructions: Imaging studies, laboratory and physical exam results were discussed and review ed in detail. No major barriers to patient understanding were identified. An opportunity to ask questions regarding the treatment plan was provided. All questions were answered. The patient expressed understanding and agreement with the above treatment plan. The patient is aware they should contact our office by phone for worsening of their current condition or the appearance of new urologic symptoms. Compliance is encouraged with any medications and followup testing that is ordered. It is a privilege to participate in the urologic care of your patient. If you have any questions or concerns regarding treatment for the above conditions, or other urologic issues, please do not hesitate to contact me. The office telephone contact is [phone]. This note is constructed using voice recognition software. While every effort has been made to ensure accuracy valve seater operator errors may have been included. Yours sincerely, Dr Donato Lund MD, [facility] Providers of Expert, Compassionate Care for the Genitourinary System Coding Level of Care Code Est Pt Level 4 (40354) Diagnoses Hypogonadism in male E29.1 Erectile dysfunction N52.9
== END 2023-03-12 13:48 | disposition home or self-care (01) ==
PROVIDERS: PCP Internal Medicine; Visit Provider Urology
DX: E29.1 Testicular hypofunction (principal); N52.9 Male erectile dysfunction, unspecified
CPT/HCPCS: 99214

== ENCOUNTER → 2023-03-12 13:04 | Outpatient (BNVA) | payer MEDICARE, SELFPAY | PROVIDERS: PCP Internal Medicine; Visit Provider Urology | DX: E29.1 Testicular hypofunction (principal); N52.9 Male erectile dysfunction, unspecified | CPT/HCPCS: 99212 ==

== ENCOUNTER 2023-07-01 09:31 | Outpatient (REF) | payer MEDICARE, SELFPAY ==
[2023-07-01 12:07] LABS: MANUAL DIFF FLAG NO
[2023-07-01 12:15] LABS: Basophils Percent Auto 0.4 % (0-2); Eosinophils Absolute Auto 0.7 X10*3/uL (0.0-0.4); Eosinophils Percent Auto 10.7 % (0-4); Hematocrit 45.9 % (42.0-52.0); Hemoglobin 15.7 g/dl (14.0-18.0); Imm Gran Abs Auto 0.02 X10*3/uL (0.00-0.03); Imm Gran Pct Auto 0.3 % (0.0-0.4); Lymphocytes Absolute Auto 2.1 X10*3/uL (1.2-4.9); Lymphocytes Percent Auto 30.1 % (20-40); Mean Corpuscular HGB Conc 34.2 g/dl (31.0-36.0); Mean Corpuscular Hemoglobin 30.1 pg (27.0-33.0); Mean Corpuscular Volume 87.9 fL (80.0-98.0); Monocytes Absolute Auto 0.4 X10*3/uL (0.1-1.2); Monocytes Percent Auto 5.9 % (2-11); Neutrophils Absolute Auto 3.6 x10*3/uL (2.0-8.3); Neutrophils Percent Auto 52.6 % (45-73); Platelet Count 159 X10*3/uL (160-400); Red Blood Count 5.22 X10*6/uL (4.60-5.80); Red Cell Distribution Width 13.2 % (11.0-16.0); White Blood Count 6.8 X10*3/uL (4.8-10.8)
[2023-07-01 12:21] LABS: Estimated Average Glucose 117 mg/dL; Hemoglobin A1C 150.6504 umol/L; Hemoglobin A1c % 5.7 % (<6.0)
[2023-07-01 12:58] LABS: Alanine Aminotransferase 45 U/L (0-40); Alkaline Phosphatase 56 U/L (39-117); Anion Gap 11 (12-20); Aspartate Amino Transferase 31 U/L (5-37); Bilirubin Total 0.7 mg/dL (0.0-1.0); Blood Urea Nitrogen 14 mg/dL (9-16); Calcium 9.4 mg/dL (8.4-10.2); Carbon Dioxide 28 mmol/L (22-29); Chloride 109 mmol/L (96-108); Cholesterol 136 mg/dL (<200); Estimated Glomerular Filt Rate > 60; Glucose Random 132 mg/dL (60-115); HDL Cholesterol 48 mg/dL (>40); LDL Cholesterol Calculated 54 mg/dL (<100); Potassium 4.1 mmol/L (3.3-5.1); Sodium 144 mmol/L (135-145); Triglycerides 171 mg/dL (<150)
[2023-07-01 13:15] LABS: Thyroid Stimulating Hormone 2.34 uIU/mL (0.32-4.0)
[2023-07-01 13:19] LABS: Free T4 (Free Thyroxine) 0.81 ng/dL (0.71-1.85)
== END 2023-07-01 09:32 | disposition home or self-care (01) ==
LOC: HO.WFDLDS 09:31
PROVIDERS: Referring Provider Urology; Visit Provider Internal Medicine
DX: E78.00 Pure hypercholesterolemia, unspecified (principal); E11.9 Type 2 diabetes mellitus without complications; R68.82 Decreased libido
CPT/HCPCS: 36415; 80053; 80061; 83036; 84439; 84443; 85025

== ENCOUNTER 2023-07-09 10:26 | Outpatient (AMB) | payer MEDICARE, SELFPAY ==
[2023-07-09 10:27] VITALS: BP 120/72; PULSE 52; O2SAT 98; BMI 30.5
--- NOTE | 2023-07-09 10:27 | AM.OFFVISMDC ---
Intake Vital Signs 07/09/23 10:27 Height 6 ft Weight 225 lb BMI 30.5 BP 120/72 Blood Pressure Location Lt brachial Position Sitting Pulse 52 Pulse Source Pulse Oximeter Pulse Oximetry (%) 98 Oxygen Delivery Method Room Air Intake Visit Reasons: AWV Intake Note: Patient is here for an Annual Wellness Visit. Multiple Games Dealer Required: No Allergies bee venom protein (honey bee) Allergy (Severe, Verified 07/09/23 10:28) Anaphylaxis Medication List - Last Reconciled 07/09/23 by Dodie Cazares MD allopurinol 300 mg PO DAILY epinephrine 0.3 mL IM Q10M PRN ezetimibe 10 mg PO DAILY fenofibrate 160 mg PO DAILY fluticasone propionate 50 mcg/actuation (Flonase Allergy Relief) 1 spray intranasal DAILY gabapentin (Neurontin) 600 mg PO BEDTIME pantoprazole (Protonix) 40 mg PO DAILY pramipexole (Mirapex) 0.5 mg PO TID psyllium husk (Fiber (psyllium husk)) 0.4 grams PO BEDTIME PRN rosuvastatin (Crestor) 20 mg PO DAILY sennosides-docusate sodium 8.6-50 mg (Senna with Docusate Sodium) 2 tab-caps (2 x 8.6-50 mg) PO BEDTIME 30 days tadalafil 10 mg PO DAILY 90 days tadalafil 20 mg PO ONCE PRN 30 days zolpidem (Ambien) 5 mg PO BEDTIME PRN HPI AWV HPI Details 77-year-old obese male with hypercholesterolemia impaired glucose tolerance BPH splenic artery aneurysm August 2021 last tested history of umbilical hernia and bilateral inguinal hernia gout erectile dysfunction last seen in October 2022. Colon test is up-to-date April 2022 review of the notes was in [place] the in May 2023 had dizziness. Patient also follows up with urology March 2023 not on any tamsulosin no present therapy. In January patient was also in [facility] for cough COVID-19 infection diagnosis of pneumonia due to COVID-[address] done on the Chest showing infiltrate RUL ? atypical pneumonia advised to ff up [facility] Medical History (Updated 07/09/23 @ 16:17 by Dodie Cazares MD) GERD (gastroesophageal reflux disease) Esophageal stricture Diverticulitis Peripheral neuropathy H/O: pneumonia Tubular adenoma Screening for prostate cancer Olecranon bursitis, right elbow Elbow pain, right Onychomycosis Adult general medical exam Screening for colon cancer Dizziness Impacted cerumen of both ears Status post administration of all doses of COVID-19 vaccine series Anxiety Vitamin D deficiency Fatty liver Insomnia Restless leg syndrome Gout Umbilical hernia Left inguinal hernia Impaired glucose tolerance Hypercholesterolemia BPH (benign prostatic hyperplasia) Erectile dysfunction Splenic artery aneurysm Peroneal tendonitis of right lower extremity Surgical History H/O esophagogastroduodenoscopy History of colonoscopy History of surgery History of laparoscopic cholecystectomy History of cataract surgery Status post appendectomy Family History Father CVD (cardiovascular disease) Heart problem Mother Pneumonia Brother CVD (cardiovascular disease) Prostate cancer Sister Ovarian cancer Sister Cancer Son In good health Daughter In good health Social History (Updated 07/09/23 @ 11:15 by Dodie Cazares MD) Housing: House Alcohol intake: current Alcohol intake frequency: a few times a month Alcohol type: beer Comment: 2 beers a day Patient Tobacco Use Status: Never used Tobacco e-Cigarette/Vaping Use: Never Used Second Hand Smoke Exposure: No service: Yes 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al status: retired 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 Cognitive needs: No Hearing needs: No Vision needs: Yes Questionnaire Medicare Wellness Checkup [age] What gender do you identify with?: male During the past 4 weeks, how much have you been bothered by emotional problems such as feeling anxious, depressed, irritable, sad or downhearted, and blue?: not at all During the past 4 weeks, has your physical & emotional health limited your social activities with family, friends, neighbors, or groups?: not at all During the past 4 weeks, how much bodily pain have you generally had?: no pain During the past 4 weeks, was someone available to help you if you needed & wanted help?: yes, as much as I wanted During the past 4 weeks, what was the hardest physical activity you could do for at least 2 minutes?: heavy Can you get to places out of walking distance without help? (For eg., can you travel alone on buses, taxis or drive your car?): Yes Can you go shopping for groceries or clothes without someone's help?: Yes Can you prepare your own meals?: Yes Can you do your housework without help?: Yes Because of any health problems, do you need the help of another person with your personal care needs such as eating, bathing, dressing or getting around the house?: No Can you handle your own money without help?: Yes During the past 4 weeks, how would you rate your health in general?: very good During the past 4 weeks how have things been going for you?: very well; could hardly better Are you having difficulties driving your car?: no Do you always fasten your seat belt when you are in a car?: yes, usually During past 4 weeks, have you been bothered by the following: never: Trouble eating well? and Problems using the telephone? and seldom: Falling or dizzy when standing up, Sexual problems?, Teeth or denture problems? and Tiredness or fatigue? Have you fallen 2 or more times in the past year?: No Are you afraid of falling?: No Are you a smoker?: no During the past 4 weeks, how many drinks of wine, beer, or other alcoholic beverages did you have?: 2-5 drinks per week Do you exercise for about 20 minutes 3 or more times a week?: yes, most of the time Have you been given information to help with the following?: no: Hazards in your house that might hurt you? and no: Keeping track of your medications? How often do you have trouble taking medicines the way you have been told to take them?: I always take medicine as prescribed How confident are you that you can control & manage most of your health problems?: very confident What is your race?: White PHQ-9 Over the last 2 weeks, how often have you been bothered by any of the following problems? 1. Little interest or pleasure in doing things: not at all 2. Feeling down, depressed, or hopeless: not at all 3. Trouble falling or staying asleep, or sleeping too much: not at all 4. Feeling tired or having little energy: not at all 5. Poor appetite or overeating: not at all 6. Feeling bad about yourself - or that you are a failure or have let yourself or your family down: not at all 7. Trouble concentrating on things, such as reading the newspaper or watching television: not at all 8. Moving or speaking so slowly that other people could have noticed. Or the opposite - being so fidgety or restless that you have been moving around a lot more than usual: not at all 9. Thoughts that you would be better off or of hurting yourself in some way: not at all Total score: 0 Depression Screening Interpretation: Negative Depression Screening Done: Yes 61524 - PHQ-9 Billing: Yes Source: Developed by Drs. Matt Mcqueen, Genny Bailey, Michele Shah and colleagues, with an educational micaela from [employer]. Review of Systems Const Denies poor appetite and Denies weakness Eyes Denies no additional complaints ENT Reports Normal hearing present, Denies dizziness, Denies nasal congestion, Denies tinnitus and Denies sore throat Card Denies chest pain, Denies syncope, Denies rapid heart rate and Denies dyspnea Resp Denies cough and Denies dyspnea GI Denies change in stool character, Reports constipation, Denies diarrhea, Denies nausea and Denies vomiting Denies dysuria and Denies urinary frequency Neuro Reports Normal hearing present, Denies confusion, Denies dizziness, Denies syncope and Denies weakness Psych Denies confusion Physical Exam Vital Signs: Last Vital Signs Pulse 52 07/09/23 10:27 BP 120/72 07/09/23 10:27 Pulse Ox 98 07/09/23 10:27 Oxygen Delivery Method Room Air 07/09/23 10:27 BMI result Body Mass Index 30.5 Const General: No confusion Orientation/consciousness: No confusion HEENT Head: Yes normocephalic Ears: external ears normal and TM's normal bilaterally Face and sinus: Yes normal facial exam Mouth: moist mucous membranes Throat: Yes tonsils normal Eyes Conjunctivae: conjunctivae normal Pupils: Equal, round and reactive pupils present and Pupil accommodation reflex normal Direct Ophthalmoscopy: normal light reflex Neck Neck: No lymphadenopathy Thyroid: Thyroid normal Chest Chest palpation & inspection: normal inspection of the chest Resp Effort & Inspection: normal respiratory effort and no audible wheezes Auscultation: clear to auscultation bilaterally, no crackles, no wheezes and lung sounds not diminished Cardio Rate: regular rate Rhythm: regular rhythm Peripheral pulses: radial pulses present and dorsalis pedis present GI Other: guaiac neg prostate enlarged, umbilical hernia 3 cm , inguinal hernia bialteral mild Palpation (GI): no masses Auscultation: normal bowel sounds and normoactive bowel sounds Rectal Exam - Male: Yes deferred Skin General skin exam: no rashes or lesions noted Rashes: no rashes Neuro General: No confusion Cranial nerves: Yes Equal, round and reactive pupils present and Yes Normal hearing present Cognition (Neuro): normal cognition Gait exam (Neuro): Normal gait present Motor exam (neuro): 5/5 motor strength present throughout Deep tendon reflexes (DTR's): Right brachioradialis reflex intensity grade: 2+, Left brachioradialis reflex intensity grade: 2+, Right patellar reflex intensity grade: 2+ and Left patellar reflex intensity grade: 2+ Extrem General: No edema Assessment & Plan Assessment & Plan (1) Medicare annual wellness visit, subsequent: Code(s): Z00.00 - Encounter for general adult medical examination without abnormal findings Plan: Keep well hydrated eat healthy and keep active (2) GERD (gastroesophageal reflux disease): Code(s): K21.9 - Gastro-esophageal reflux disease without esophagitis Qualifiers: Esophagitis presence: without esophagitis Qualified Code(s): K21.9 - Gastro-esophageal reflux disease without esophagitis Plan: Avoid the foods that causes that usually spicy foods, tomato products, juices, coffee, soda and foods that your sensitive to. After eating do not lie down, allow 3-4 hours before in lie down. And keep the head of bed above 30 degrees to avoid the acid from going up. (3) Hypogonadism in male: Code(s): E29.1 - Testicular hypofunction Plan: Patient is being followed up by Urology (4) Impaired glucose tolerance: Code(s): R73.02 - Impaired glucose tolerance (oral) Plan: Decrease the amount of carbohydrate intake, pasta, bread, rice and potatoes are all sugar and that is aside from all the sweet stuff, remember that fruits are good but they are Sweet also. (5) Hypercholesterolemia: Code(s): E78.00 - Pure hypercholesterolemia, unspecified Plan: Avoid fried foods, chicken skin, eggs, butter margarine, pastries and meat. Be it pork or beef they have a lot of cholesterol LDL goal of less than 130 and triglyceride of less than 150 on fenofibrate and rosuvastatin (6) BPH (benign prostatic hyperplasia): Comment: Flomax Code(s): N40.0 - Benign prostatic hyperplasia without lower urinary tract symptoms Qualifiers: Lower urinary tract symptom detail: urinary frequency Lower urinary tract symptom presence: symptoms present Qualified Code(s): N40.1 - Benign prostatic hyperplasia with lower urinary tract symptoms; R35.0 - Frequency of micturition Plan: Continue with tadalafil (7) Gout of right elbow: Code(s): M10.9 - Gout, unspecified Qualifiers: Gout etiology: unspecified cause Chronicity: chronic Qualified Code(s): M1A.0210 - Idiopathic chronic gout, right elbow, without tophus (tophi) Plan: Low purine diet keep well hydrated (8) Atypical pneumonia: Code(s): J18.9 - Pneumonia, unspecified organism Plan: treated and will ff up xray of chest Orders: Orders XR chest 2V Today J18.9 - Pneumonia, unspecified organism Medications: Refilled zolpidem (Ambien) 5 mg PO BEDTIME PRN 30 tabs 0RF sleep G47.00 - Insomnia, unspecified Quality Reporting (2019) Depression/Bipolar (159/160/161/177) PHQ-9: Total score: 0 Coding Level of Care Code Medicare Subsequent (G0439) Diagnoses Medicare annual wellness visit, subsequent Z00.00 Gastroesophageal reflux disease without esophagitis K21.9 Esophagitis presence: without esophagitis Hypogonadism in male E29.1 Impaired glucose tolerance R73.02 Hypercholesterolemia E78.00 Benign prostatic hyperplasia with urinary frequency N40.1; R35.0 Lower urinary tract symptom detail: urinary frequency Lower urinary tract symptom presence: symptoms present Chronic gout of right elbow, unspecified cause M1A.0210 Gout etiology: unspecified cause Chronicity: chronic Atypical pneumonia J18.9
== END 2023-07-09 11:40 | disposition home or self-care (01) ==
PROVIDERS: PCP Internal Medicine; Visit Provider Internal Medicine
DX: Z00.00 Encounter for general adult medical examination without abnormal findings (principal); K21.9 Gastro-esophageal reflux disease without esophagitis; E29.1 Testicular hypofunction; R73.02 Impaired glucose tolerance (oral); E78.00 Pure hypercholesterolemia, unspecified; R35.0 Frequency of micturition; M1A.0210 Idiopathic chronic gout, right elbow, without tophus (tophi); J18.9 Pneumonia, unspecified organism
CPT/HCPCS: G0439

== ENCOUNTER 2023-07-30 10:51 | Outpatient (REF) | payer MEDICARE, SELFPAY ==
--- NOTE | ~2023-07-30 | XR_ITS ---
EXAMINATION: XR CHEST CLINICAL INFORMATION: Pneumonia, follow up for patient statement. COMPARISON: 02/05/2023. TECHNIQUE: 2 views of the chest were obtained. FINDINGS: There is no gross pneumothorax. Heart size is normal. No pleural effusion. Multilevel degenerative changes in the thoracic spine. No new focal consolidation to suggest pneumonia. XR/XR chest 2V IMPRESSION: No evidence of pneumonia.
== END 2023-07-30 10:52 | disposition home or self-care (01) ==
LOC: HO.XRAY 10:51
PROVIDERS: PCP Internal Medicine; Visit Provider Internal Medicine
DX: J18.9 Pneumonia, unspecified organism (principal)
CPT/HCPCS: 71046

== ENCOUNTER 2023-09-02 09:20 | Outpatient (REF) | payer MEDICARE, SELFPAY ==
[2023-09-06 17:37] LABS: Testosterone, Total 336 ng/dL (250-1100)
== END 2023-09-02 09:21 | disposition home or self-care (01) ==
LOC: HO.LAB 09:20
PROVIDERS: PCP Internal Medicine; Visit Provider Urology
DX: R68.82 Decreased libido (principal); E29.1 Testicular hypofunction
CPT/HCPCS: 36415; 84402; 84403

== ENCOUNTER 2023-09-09 13:17 | Outpatient (AMB) | payer MEDICARE, SELFPAY ==
--- NOTE | 2023-09-09 13:19 | MHC.OFFVIS ---
Intake Visit Reasons: 6m/Testosterone(Pending) Intake Note: Patient is Present for Telephone Follow Up For Urology Med: Tadalafil Antibiotic Allergy: None Blood Thinner: none Allergies bee venom protein (honey bee) Allergy (Severe, Verified 09/09/23 13:20) Anaphylaxis Medication List - Last Reconciled 09/09/23 by Donato Lund MD allopurinol 300 mg PO DAILY epinephrine 0.3 mL IM Q10M PRN ezetimibe 10 mg PO DAILY fenofibrate 160 mg PO DAILY fluticasone propionate 50 mcg/actuation (Flonase Allergy Relief) 1 spray intranasal DAILY gabapentin (Neurontin) 600 mg PO BEDTIME pantoprazole (Protonix) 40 mg PO DAILY pramipexole (Mirapex) 0.5 mg PO TID psyllium husk (Fiber (psyllium husk)) 0.4 grams PO BEDTIME PRN rosuvastatin (Crestor) 20 mg PO DAILY sennosides-docusate sodium 8.6-50 mg (Senna with Docusate Sodium) 2 tab-caps (2 x 8.6-50 mg) PO BEDTIME 30 days tadalafil 10 mg PO DAILY 90 days tadalafil 20 mg PO ONCE PRN 30 days zolpidem (Ambien) 5 mg PO BEDTIME PRN HPI Comments Details: Darrius is a pleasant male. He is a patient of Dr. Cazares. He is seen for the following urologic conditions - BPH - hypogonadism Telemedicine Evaluation 15 min Consultation [employer] [place] Video attempted Testosterone shows low normal total with low normal free T Continue with 10 mg Cialis daily and up to 40mg on demand 6m f/u Lower urinary tract symptoms Current visit for symptom evaluation minimal nocturia effective stream current medications tamsulosin PSA 10/25 0.5, 06/27 0.54 Erectile Dysfunction - not currently using therapy testosterone 380, FSH mildly elevated - 11/27 T 242 FT 41, 02/27 T 312 FT 50 LH 2.5, 08/28 T 340 FT 48 PFSH Medical History GERD (gastroesophageal reflux disease) Esophageal stricture Diverticulitis Peripheral neuropathy H/O: pneumonia Tubular adenoma Screening for prostate cancer Olecranon bursitis, right elbow Elbow pain, right Onychomycosis Adult general medical exam Screening for colon cancer Dizziness Impacted cerumen of both ears Status post administration of all doses of COVID-19 vaccine series Anxiety Vitamin D deficiency Fatty liver Insomnia Restless leg syndrome Gout Umbilical hernia Left inguinal hernia Impaired glucose tolerance Hypercholesterolemia BPH (benign prostatic hyperplasia) Erectile dysfunction Splenic artery aneurysm Peroneal tendonitis of right lower extremity Surgical History H/O esophagogastroduodenoscopy History of colonoscopy History of surgery History of laparoscopic cholecystectomy History of cataract surgery Status post appendectomy Family History Father CVD (cardiovascular disease) Heart problem Mother Pneumonia Brother CVD (cardiovascular disease) Prostate cancer Sister Ovarian cancer Sister Cancer Son In good health Daughter In good health Social History Housing: House Alcohol intake: current Alcohol intake frequency: a few times a month Alcohol type: beer Comment: 2 beers a day Patient Tobacco Use Status: Never used Tobacco e-Cigarette/Vaping Use: Never Used Second Hand Smoke Exposure: No service: Yes 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al status: retired 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 Cognitive needs: No Hearing needs: No Vision needs: Yes Review of Systems Const All systems reviewed & are unremarkable except as noted in HPI and below Reports no additional complaints Resp Reports no additional complaints GI Reports no additional complaints Reports as per HPI Musc Reports no additional complaints Physical Exam Telemedicine evaluation Appropriate responses Regular breathing rate and rhythm HEENT Head: Yes normal to inspection Ears: hearing grossly normal bilaterally Eyes General: appearance normal, both eyes and all related structures Neck Neck: Yes normal visual inspection Chest Chest palpation & inspection: normal inspection of the chest Resp Effort & Inspection: normal respiratory effort and able to speak in complete sentences Telehealth Telehealth Telehealth Platform: [facility] Location of provider rendering services: practice address Location of patient: address on file Patient Identification confirmed using: Name, : Yes Telehealth method: video Patient verbally consented to treatment: Yes Patient verbally consented to billing insurance company: Yes Patient informed of any privacy concerns related to visit: Yes Minutes spent on Phone/Video with Pt.: 15 Assessment & Plan Assessment & Plan (1) Hypogonadism in male: Code(s): E29.1 - Testicular hypofunction Category: Medical (2) BPH (benign prostatic hyperplasia): Comment: Flomax Code(s): N40.0 - Benign prostatic hyperplasia without lower urinary tract symptoms Category: Medical Qualifiers: Lower urinary tract symptom presence: symptoms present Lower urinary tract symptom detail: urinary frequency Qualified Code(s): N40.1 - Benign prostatic hyperplasia with lower urinary tract symptoms; R35.0 - Frequency of micturition (3) Erectile dysfunction: Comment: Currently no treatment plan Code(s): N52.9 - Male erectile dysfunction, unspecified Category: Medical Plan Continue with daily tadalafil +on demand 6m f/u Medications: Refilled tadalafil 10 mg PO DAILY 90 days 90 tabs 1RF sexual activity N52.9 - Male erectile dysfunction, unspecified tadalafil On demand medication take 60 minutes before intended activity 20 mg PO ONCE 30 days PRN 30 tabs 0RF sexual activity E11.69 - Type 2 diabetes mellitus with other specified complication, E29.1 - Testicular hypofunction, N52.1 - Erectile dysfunction due to diseases classified elsewhere Patient Instructions: Imaging studies, laboratory and physical exam results were discussed and reviewed in detail. No major barriers to patient understanding were identified. An opportunity to ask questions regarding the treatment plan was provided. All questions were answered. The patient expressed understanding and agreement with the above treatment plan. The patient is aware they should contact our office by phone for worsening of their current condition or the appearance of new urologic symptoms. Compliance is encouraged with any medications and followup testing that is ordered. It is a privilege to participate in the urologic care of your patient. If you have any questions or concerns regarding treatment for the above conditions, or other urologic issues, please do not hesitate to contact me. The office telephone contact is [phone]. This note is constructed using voice recognition software. While every effort has been made to ensure accuracy plate gauger errors may have been included. Yours sincerely, Dr Donato Lund MD, [facility] - Urology Providers of Expert, Compassionate Care for the Genitourinary System Coding Level of Care Code Tele Est Pt Level 4 (12449) Diagnoses Hypogonadism in male E29.1 Benign prostatic hyperplasia with urinary frequency N40.1; R35.0 Lower urinary tract symptom presence: symptoms present Lower urinary tract symptom detail: urinary frequency Erectile dysfunction N52.9
== END 2023-09-09 13:42 | disposition home or self-care (01) ==
LOC: HO.HUSH 13:17
PROVIDERS: PCP Internal Medicine; Visit Provider Urology
DX: E29.1 Testicular hypofunction (principal); N40.1 Benign prostatic hyperplasia with lower urinary tract symptoms; R35.0 Frequency of micturition; N52.9 Male erectile dysfunction, unspecified
CPT/HCPCS: 99213

== ENCOUNTER → 2023-09-09 13:17 | Outpatient (BNVA) | payer MEDICARE, SELFPAY | PROVIDERS: PCP Internal Medicine; Visit Provider Urology ==

== ENCOUNTER 2024-01-12 09:14 | Outpatient (AMB) | payer MEDICARE, SELFPAY ==
--- NOTE | 2024-01-12 09:18 | A.OFFPC_ITS ---
Vital Signs 01/12/24 09:21 Height 6 ft Weight 224 lb 8 oz BMI 30.4 BP 110/72 Blood Pressure Location Lt brachial Position Sitting Pulse 57 Pulse Source Pulse Oximeter Pulse Oximetry (%) 92 Oxygen Delivery Method Room Air Intake Visit Reasons: 6 mo f/u - see comments Intake Note: Patient is here to follow up on BPH, GERD, IFG, Hypercholesterolemia. Pt decline flu shot today Travel Freight And Passenger Agent Required: No City Marshal: Not Required per policy Accompanied by: Self / Same As Patient Allergies bee venom protein (honey bee) Allergy (Severe, Verified 01/12/24 09:35) Anaphylaxis Tobacco use date assessed: 01/12/24 Fall risk assessment: No Falls in past year Last assessed Fall Risk: 01/12/24 Dental Screening Dental Screen Date: 01/12/24 Did you have a dental visit in the last 12 months?: Yes Did you have a dental problem in the last 6 months where you did not have access to dental care?: No Was dental information given to patient?: Patient has dentist HPI 6 mo f/u - see comments HPI Details 78-year-old obese male with GERD hypogon adism impaired glucose tolerance hypercholesterolemia BPH gout coming in for follow-up. Last seen for annual wellness had a history of atypical pneumonia and follow-up chest x-ray requested. Patient is up-to-date with colonoscopy 04/26/2022. Review of the notes was seen by Urology for follow-up in 07/26/2023 for hypogonadism continuing with tadalafil. 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 Received also an echocardiogram done in 05/27/2023 showing EF of 50-55% grade 2 diastolic dysfunction left atrium mildly dilated mild TR mild pulmonary valve regurgitation. Patient has complained of diarrhea about once a month and discussed that there is no change in the medication. Discussed though that patient had cholecystectomy and that with the lost of the gallbladder advised to have a low-fat diet. Also as far as having diastolic dysfunction patient denies any problem with breathing has been playing golf with no problems.. [facility] Medical History GERD (gastroesophageal reflux disease) Esophageal stricture Diverticulitis Peripheral neuropathy H/O: pneumonia Tubular adenoma Screening for prostate cancer Olecranon bursitis, right elbow Elbow pain, right Onychomycosis Adult general medical exam Screening for colon cancer Dizziness Impacted cerumen of both ears Status post administration of all doses of COVID-19 vaccine series Anxiety Vitamin D deficiency Fatty liver Insomnia Restless leg syndrome Gout Umbilical hernia Left inguinal hernia Impaired glucose tolerance Hypercholesterolemia BPH (benign prostatic hyperplasia) Erectile dysfunction Splenic artery aneurysm Peroneal tendonitis of right lower extremity Surgical History H/O esophagogastroduodenoscopy History of colonoscopy History of surgery History of laparoscopic cholecystectomy History of cataract surgery Status post appendectomy Family History Father CVD (cardiovascular disease) Heart problem Mother Pneumonia Brother CVD (cardiovascular disease) Prostate cancer Sister Ovarian cancer Sister Cancer Son In good health Daughter In good health Social History Housing: House Alcohol intake: current Alcohol intake frequency: a few times a month Alcohol type: beer Comment: 2 beers a day Patient Tobacco Use Status: Never used Tobacco e-Cigarette/Vaping Use: Never Used Second Hand Smoke Exposure: No service: Yes 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al status: retired 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 How often do you have a drink containing alcohol?: 2-4 times a month 2. How many drinks containing alcohol do you have on a typical day when you are drinking?: 1 or 2 3. How often do you have six or more drinks on one occasion?: Monthly Total Score: 4 STEPHANIE-7 AMB Questionnaire STEPHANIE-7 Date STEPHANIE - 7 assessed: 01/12/24 Feeling nervous, anxious, or on edge: 0 = Not at all Not being able to stop or control worryin = Not at all Worrying too much about different things: 0 = Not at all Trouble relaxin = Not at all Being so restless that it is hard to sit still: 0 = Not at all Becoming easily annoyed or irritable: 0 = Not at all Feeling afraid as if something awful might happen: 0 = Not at all Total STEPHANIE-7 score (0-4 normal; 5-9 mild; 10-14 moderate; 15-21 severe): 0 Source: Developed by Drs. Matt Mcqueen, Genny Bailey, Michele Shah and colleagues, with an educational micaela from [employer]. Physical exam (Primary Care) Tobacco/Smoking Status: Tobacco use Status Tobacco use date assessed 01/23/23 01/12/24 09:19 Patient Tobacco Use Status Never used Tobacco 01/12/24 09:19 e-Cigarette/Vaping Use Never Used 01/12/24 09:19 Thrive Assessment: Date of Thrive Assessment Date Thrive assessed 07/04/22 01/12/24 09:19 Const General: alert; No acute distress Eyes Conjunctivae: conjunctivae normal Resp Auscultation: clear to auscultation bilaterally Cardio Rate: regular rate Rhythm: regular rhythm GI Inspection: Yes normal to inspection Extrem General: Yes normal to inspection and No edema Results AMB Hemoglobin A1c AMB Hemoglobin A1c 5.9 % Last Edit by MELANI Liz on 01/12/24 09:45 Coding Level of Care Code Est Pt Level 4 (11824) Diagnoses Atypical pneumonia J18.9 Gastroesophageal reflux disease without esophagitis K21.9 Esophagitis presence: without esophagitis Hypogonadism in male E29.1 MCGRATH (nonalcoholic steatohepatitis) K75.81 Benign prostatic hyperplasia with urinary frequency N40.1; R35.0 Lower urinary tract symptom detail: urinary frequency Lower urinary tract symptom presence: symptoms present Impaired glucose tolerance R73.02 Hypercholesterolemia E78.00 Splenic artery aneurysm I72.8 Assessment & Plan Assessment & Plan (1) Atypical pneumonia: Code(s): J18.9 - Pneumonia, unspecified organism Category: Medical Plan: Chest x-ray results (2) GERD (gastroesophageal reflux disease): Code(s): K21.9 - Gastro-esophageal reflux disease without esophagitis Category: Medical Qualifiers: Esophagitis presence: without esophagitis Qualified Code(s): K21.9 - Gastro-esophageal reflux disease without esophagitis Plan: Avoid the foods that causes that usually spicy foods, tomato products, juices, coffee, soda and foods that your sensitive to. After eating do not lie down, allow 3-4 hours before in lie down. And keep the head of bed above 30 degrees to avoid the acid from going up. (3) Hypogonadism in male: Code(s): E29.1 - Testicular hypofunction Category: Medical Plan: Patient continue to follow-up with urology has been prescribed tadalafil (4) MCGRATH (nonalcoholic steatohepatitis): Code(s): K75.81 - Nonalcoholic steatohepatitis (MCGRATH) Category: Medical Plan: Low-fat diet and exercise (5) BPH (benign prostatic hyperplasia): Comment: Flomax Code(s): N40.0 - Benign prostatic hyperplasia without lower urinary tract symptoms Category: Medical Qualifiers: Lower urinary tract symptom detail: urinary frequency Lower urinary tract symptom presence: symptoms present Qualified Code(s): N40.1 - Benign prostatic hyperplasia with lower urinary tract symptoms; R35.0 - Frequency of micturition Plan: Patient follows up with urology (6) Impaired glucose tolerance: Code(s): R73.02 - Impaired glucose tolerance (oral) Category: Medical Plan: Decrease the amount of carbohydrate intake, pasta, bread, rice and potatoes are all sugar and that is aside from all the sweet stuff, remember that fruits are good but they are Sweet also. (7) Hypercholesterolemia: Code(s): E78.00 - Pure hypercholesterolemia, unspecified Category: Medical Plan: Avoid fried foods, chicken skin, eggs, butter margarine, pastries and meat. Be it pork or beef they have a lot of cholesterol patient on rosuvastatin 20 mg Zetia 10 mg once a day and fenofibrate (8) Splenic artery aneurysm: Comment: September 2017, October 2018 8 mm stable. April 2021 1 cm, 9 mm August 2022- retest 2-3 years Code(s): I72.8 - Aneurysm of other specified arteries Category: Medical Plan: advised retesting 2-3 years Orders: Orders AMB Hemoglobin A1c Today R73.02 - Impaired glucose tolerance (oral) Hemoglobin A1c 6 Months R73.02 - Impaired glucose tolerance (oral) Lipid Panel 6 Months E78.00 - Pure hypercholesterolemia, unspecified, R73.02 - Impaired glucose tolerance (oral) Thyroid Stimulating Hormone 6 Months R73.02 - Impaired glucose tolerance (oral) Free T4 (Free Thyroxine) 6 Months R73.02 - Impaired glucose tolerance (oral) Comprehensive Met. Panel 6 Months R73.02 - Impaired glucose tolerance (oral) Complete Blood Count Auto Diff 6 Months R73.02 - Impaired glucose tolerance (oral) Vitamin B12 and Folate 6 Months R73.02 - Impaired glucose tolerance (oral) Medications: New fenofibrate 160 mg PO DAILY 90 tabs 3RF E78.00 - Pure hypercholesterolemia, unspecified
[2024-01-12 09:21] VITALS: BP 110/72; PULSE 57; O2SAT 92; BMI 30.4
== END 2024-01-12 10:06 | disposition home or self-care (01) ==
PROVIDERS: PCP Internal Medicine; Visit Provider Internal Medicine
DX: J18.9 Pneumonia, unspecified organism (principal); I72.8 Aneurysm of other specified arteries; K21.9 Gastro-esophageal reflux disease without esophagitis; E29.1 Testicular hypofunction; K75.81 Nonalcoholic steatohepatitis (NASH); N40.1 Benign prostatic hyperplasia with lower urinary tract symptoms; R35.0 Frequency of micturition; R73.02 Impaired glucose tolerance (oral); E78.00 Pure hypercholesterolemia, unspecified

== ENCOUNTER → 2024-01-12 09:14 | Outpatient (BNVA) | payer MEDICARE, SELFPAY | PROVIDERS: PCP Internal Medicine; Visit Provider Internal Medicine | DX: R73.02 Impaired glucose tolerance (oral) (principal); J18.9 Pneumonia, unspecified organism; K21.9 Gastro-esophageal reflux disease without esophagitis; K75.81 Nonalcoholic steatohepatitis (NASH); N40.1 Benign prostatic hyperplasia with lower urinary tract symptoms; R35.0 Frequency of micturition; E78.00 Pure hypercholesterolemia, unspecified; I72.8 Aneurysm of other specified arteries | CPT/HCPCS: 83036; 99212 ==

== ENCOUNTER 2024-03-10 13:16 | Outpatient (AMB) | payer MEDICARE, SELFPAY ==
--- NOTE | 2024-03-10 13:28 | A.OFFVIS_ITS ---
Intake Visit Reasons: 6m follow up Intake Note: Patient is present for 6M F/U Urology Medication:TADALAFIL,ALLOPURINOL Antibiotic Allergy:NONE Blood Thinner:NONE Technologist Infectious Disease Required: No Allergies bee venom protein (honey bee) Allergy (Severe, Verified 03/10/24 13:30) Anaphylaxis HPI Comments Details: Darrius is a pleasant male. He is a patient of Dr. Cazares. He is seen for the following urologic conditions - lower urinary tract symptoms - hypogonadism Six-month follow-up Erectile performance is not as much of a concern currently is has gone through a number of medical issues Continue with 10 mg Cialis daily and up to 40mg on demand Lower urinary tract symptoms Current visit for symptom evaluation minimal nocturia effective stream current medications tamsulosin PSA 10/25 0.5, 06/27 0.54 Erectile Dysfunction - not currently using therapy testosterone 380, FSH mildly elevated - 11/27 T 242 FT 41, 02/27 T 312 FT 50 LH 2.5, 08/28 T 340 FT 48 PFSH Medical History GERD (gastroesophageal reflux disease) Esophageal stricture Diverticulitis Peripheral neuropathy H/O: pneumonia Tubular adenoma Screening for prostate cancer Olecranon bursitis, right elbow Elbow pain, right Onychomycosis Adult general medical exam Screening for colon cancer Dizziness Impacted cerumen of both ears Status post administration of all doses of COVID-19 vaccine series Anxiety Vitamin D deficiency Fatty liver Insomnia Restless leg syndrome Gout Umbilical hernia Left inguinal hernia Impaired glucose tolerance Hypercholesterolemia BPH (benign prostatic hyperplasia) Erectile dysfunction Splenic artery aneurysm Peroneal tendonitis of right lower extremity Surgical History H/O esophagogastroduodenoscopy History of colonoscopy History of surgery History of laparoscopic cholecystectomy History of cataract surgery Status post appendectomy Family History Father CVD (cardiovascular disease) Heart problem Mother Pneumonia Brother CVD (cardiovascular disease) Prostate cancer Sister Ovarian cancer Sister Cancer Son In good health Daughter In good health Social History Housing: House Alcohol intake: current Alcohol intake frequency: a few times a month Alcohol type: beer Comment: 2 beers a day Patient Tobacco Use Status: Never used Tobacco e-Cigarette/Vaping Use: Never Used Second Hand Smoke Exposure: No service: Yes 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al status: retired 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 Cognitive needs: No Hearing needs: No Vision needs: Yes Review of Systems Const Denies chills and Denies fever(s) Card Reports no additional complaints and Denies syncope Resp Denies cough GI Denies abdominal pain and Denies heartburn Reports as per HPI and Denies change in libido Neuro Denies syncope Psych Denies change in libido Endo Denies change in libido Physical Exam Const General: cooperative, healthy appearing, comfortable and no acute distress Orientation/consciousness: patient oriented x3 HEENT Face and sinus: Yes normal facial exam Mouth: moist mucous membranes Neck Neck: Yes normal visual inspection, Yes full ROM and Yes trachea midline Chest Chest palpation & inspection: normal inspection of the chest Resp Effort & Inspection: normal respiratory effort, able to speak in complete sentences and no respiratory distress GI Inspection: Yes normal to inspection Back/Spine/Pelvis Cervical Spine: normal cervical lordosis Thoracic/Lumbar Spine: thoracic and lumbar spine normal to inspection Skin General skin exam: no rashes or lesions noted Neuro General: patient oriented x3, gait normal, tone normal and moves all extremities Extrem General: Yes normal to inspection and Yes capillary refill normal Results AMB Urinalysis, Automated UA Leukoctes 0 Isabela/uL Last Edit by BETTE Piper on 03/10/24 13:45 UA Nitrite Negative Last Edit by BETTE Piper on 03/10/24 13:45 UA Urobilinogen 0.2 mg/dL Last Edit by BETTE Piper on 03/10/24 13:4 5 UA Protein 0 mg/dL Last Edit by BETTE Piper on 03/10/24 13:45 UA pH 7.0 Last Edit by BETTE Piper on 03/10/24 13:45 UA Blood 0 Osmar/uL Last Edit by BETTE Piper on 03/10/24 13:45 UA Specific [place] 1.015 Last Edit by BETTE Piper on 03/10/24 13: 45 UA Ketone Negative Last Edit by BETTE Piper on 03/10/24 13:45 UA Bilirubin 0 mg/dL Last Edit by BETTE Piper on 03/10/24 13:45 UA Glucose 0 mg/dL Last Edit by BETTE Piper on 03/10/24 13:45 Results Reviewed Results Reviewed: Laboratory Last Values Urine pH (Auto) 7.0 03/10/24 13:44 Specific [place] (Auto) 1.015 03/10/24 13:44 Urine Protein (Auto) 0 mg/dL 03/10/24 13:44 Glucose (UA)(Auto) 0 mg/dL 03/10/24 13:44 Urine Ketones (Auto) Negative 03/10/24 13:44 Urine Blood (Auto) 0 Osmar/uL 03/10/24 13:44 Urine Nitrite (Auto) Negative 03/10/24 13:44 Urine Bilirubin (Auto) 0 mg/dL 03/10/24 13:44 Urine Urobilinogen (Auto) 0.2 mg/dL 03/10/24 13:44 Leukocyte Esterase (Auto) 0 Isabela/uL 03/10/24 13:44 Assessment & Plan Assessment & Plan (1) Erectile dysfunction: Comment: Currently no treatment plan Code(s): N52.9 - Male erectile dysfunction, unspecified Category: Medical (2) BPH (benign prostatic hyperplasia): Comment: Flomax Code(s): N40.0 - Benign prostatic hyperplasia without lower urinary tract symptoms Category: Medical Qualifiers: Lower urinary tract symptom presence: symptoms present Lower urinary tract symptom detail: urinary frequency Qualified Code(s): N40.1 - Benign prostatic hyperplasia with lower urinary tract symptoms; R35.0 - Frequency of micturition (3) Low libido: Code(s): R68.82 - Decreased libido Category: Medical Plan 12 month follow-up PSA Orders: Orders AMB Urinalysis Automated Today Z13.9 - Encounter for screening, unspecified Prostate Specific Antigen 364 Days N40.1 - Benign prostatic hyperplasia with lower urinary tract symptoms, R35.0 - Frequency of micturition Patient Instructions: Imaging studies, laboratory and physical exam results were discussed and reviewed in detail. No major barriers to patient understanding were identified. An opportunity to ask questions regarding the treatment plan was provided. All questions were answered. The patient expressed understanding and agreement with the above treatment plan. The patient is aware they should contact our office by phone for worsening of their current condition or the appearance of new urologic symptoms. Compliance i s encouraged with any medications and followup testing that is ordered. It is a privilege to participate in the urologic care of your patient. If you have any questions or concerns regarding treatment for the above conditions, or other urologic issues, please do not hesitate to contact me. The office telephone contact is [phone]. This note is constructed using voice recognition software. While every effort has been made to ensure accuracy lamps tester and inspector errors may have been included. Yours sincerely, Dr Donato Lund MD, [facility] - Urology Providers of Expert, Compassionate Care for the Genitourinary System Coding Level of Care Code Est Pt Level 3 (12500) Diagnoses Erectile dysfunction N52.9 Benign prostatic hyperplasia with urinary frequency N40.1; R35.0 Lower urinary tract symptom presence: symptoms present Lower urinary tract symptom detail: urinary frequency Low libido R68.82
--- OUTSIDE RECORDS SUMMARY | 2024-03-16 19:26 | XMS_ITS | Patient Health Record ---
Author Organization [facility] Address [address] [place], [place] [address] Care Team Providers Care Quantitative Analyst Developer Name Role Phone Dodie Cazares Primary Care Provider Bekah Westbrook Unavailable [phone] Allergies Allergen (clinical drug ingredient) Drug/Non Drug Allergy documented on EMR Reaction Allergy Type Onset Date Status Bee Sting Unknown Allergy Active Reason For Referral No Information Medications Medication SIG (Take, Route, Frequency, Duration) Notes Start Date End Date Status Rosuvastatin Calcium 20 MG 1 tablet Oral ly Once a day for 30 day(s) Active Fenofibrate 160 MG 1 tablet Orally Once a day for 30 day(s) Not-Taking Tamsulosin HCl 0.4 MG 1 capsule Orally Once a day for 30 day(s) Not-Taking Pantoprazole Sodium 40 MG 1 tablet Orall y Once a day for 30 day(s) Active Gabapentin 300 MG 1 capsule Orally Once a day for 30 day(s) Active Pramipexole Dihydrochloride 0.5 MG 1 tablet Orally Once a day for 30 day(s) Active Allopurinol Active MethylPREDNISolone (Rene) Active Ezetimibe 10 MG 1 tablet Orally Once a day for 30 day(s) Active Social History Tobacco Use: Social History Observation Description Date Details (start date - stop date) Never Smoker NA - NA Tobacco Use/Smoking Question Answer Notes Are you a: nonsmoker Alcohol Screen Question Answer Notes Did you have a drink contain ing alcohol in the past year? Yes How often did you have a dri nk containing alcohol in the past year? Monthly or less (1 point) Points 1 Interpretation Negative Tobacco use other than smoking: Question Answer Notes Are you an other tobacco user? No Plan Of Treatment No Information Insurance Providers Payer Name Payer Address Payer Phone Subscriber Number Group Number Insured Name Patient Relationship to Insured Coverage Start Date Coverage End Date [employer] Medicare [id number] [address] [address] [place] [address] [id number] Darrius Toussaint Self - patient is the insured Medical (General) History Medical History History ICD Code Back,Hip,and Knee pain Cholesterol Cataracts Gall bladder problems Reflux ( GERD) Measles Surgical History Surgery Date(Month/Year) Gall Bladder Surgery 2010
--- OUTSIDE RECORDS SUMMARY | 2024-03-16 19:26 | XMS_ITS | Patient Health Record ---
Author Organization [facility] Address [address] [place] [address] Care Team Providers Care Power Barker Name Role Phone Po Dodie PRIETO Primary Care Provider Matt Cooper Unavailable [phone] REASON FOR REFERRAL No Information MEDICATIONS Medication SIG (Take, Route, Frequency, Duration) Notes Start Date End Date Status Gabapentin 300 MG 2 capsule AT BEDTIME Once a day Active Fenofibrate 160 MG 1 tablet with a meal Orally Once a day Active Pramipexole Dihydrochloride Requip Active Allopurinol Active Zetia Active Pantoprazole Sodium 40 MG 1 tablet Orall y Once a day Active Crestor Active Colchicine 0.6 MG 1 tablet Orally for 30 day(s) Active Ondansetron NEEDED Active Tamsulosin HCl 0.4 MG TAKE 1 CAPSULE BY MOUTH EVERYDAY AT BEDTIME Oral for 90 Active IMMUNIZATIONS Vaccine Route Administration Date Status Comme nts Influenza Unknown 12/03/2019 Administered Influenza Unknown 02/07/2022 Administered SOCIAL HISTORY Sex Assigned At : Social History Observation Description Sex Assigned At Unknown Alcohol Screen Question Answer Notes Did you have a drink contain ing alcohol in the past year? Yes How often did you have a dri nk containing alcohol in the past year? 2 to 3 times a week (3 points) How many drinks did you have on a typical day when you were drinking in the past year? 3 or 4 drinks (1 point) How often did you have 6 or more drinks on one occasion in the past year? Less than monthly (1 point) Points 5 Interpretation Positive PROBLEMS Problem Type ICD Code Onset Dates Problem Status W/U Status Risk SNOMED Code Notes Problem Encounter for screening for malignant neoplasm of colon (Z12.11) Active confirmed 777838920 Problem History of adenomatous polyp of colon (Z86.010) Active confirmed 248504250 Problem Diverticulosis of large intestine without perforation or abscess without bleeding (K57.30) Active confirmed Diverticul ar disease of colon (627437960) Problem Encounter for screening for malignant neoplasm of rectum (Z12.12) Active confirmed Screening for malignant neoplasm of rectum (100694553) Problem Family history of colon cancer (Z80.0) Active confirmed Family History of Cancer of Colon (Situation) (794036272) Problem Esophageal stricture (K22.2) Active confirmed Esophageal stricture (49550848) Problem Esophageal spasm (K22.4) Active confirmed 014208566 Problem GERD without esophagitis (K21.9) Active confirmed 870543031 Problem Esophageal dysphagia (R13.10) Active confirmed 07560312 PLAN OF TREATMENT Pending Test Test Name Order Date Pathology 04/24/2022 Future Test Test Name Order Date COLONOSCOPY 11/19/2011 COLONOSCOPY 07/25/2016 UPPER GI ENDOSCOPY BALLOOON DILATION OF ESOPH 07/06/2020 COLONOSCOPY 02/21/2022 Insurance Providers Payer Name Payer Address Payer Phone Subscriber Number Group Number Insured Name Patient Relationship to Insured Coverage Start Date Coverage End Date [facility] [address] [address] [place] [address] [phone] [id number] SHAWNA JONES Self - patient is the insured MEDICAL (GENERAL) HISTORY Medical History History ICD Code GERD--2 EGD's in the s were not particularly revealing other than a small hiatal hernia--there was no evidence of any esophagitis nor Ross's esophagus, nor any esophageal strictures nor rings--I did perform a balloon dilation of the gastroesophageal junction during one of the endoscopies in the ---EGD in 2009 revealed a minimal HH--no esophagitis, no Ross's--- history of esophageal spasm causing episodes of dysphagia, including a five-hour episode in May of 2020--the episodes of spasm and dysphagia are felt related to gastroesophageal reflux Tubular adenomas--colonoscop y in 12/2011 was negative except for divertciulosis--tubular adenomas removed in 2002 and 2006 Hyperlipidemia Gout Denies [place],DM,CVA,Lung disease,renal dise ase Pneumonia - 05/2016 Insomnia FATTY LIVER PERIPHERAL NEUROPATHY MILD DIVERTICULOSIS SPLENIC ARTERY ANEURYSM--seeing Dr. Perry , vascular surgeon ? of very mild diverticulitis in 2014 Seasonal allergies Colonoscopy in 01/2017 was negative Esophageal stricture dilated with an 18- 20mm balloon in 07/2020 Surgical History Surgery Date(Month/Year) [facility]
--- OUTSIDE RECORDS SUMMARY | 2024-03-16 19:26 | XMS_ITS ---
[facility] Address [address] [place] [address] Care Team Providers Care Control Chemist Name Role Phone Dodie Cazares Primary Care Provider Bekah Westbrook Unavailable [phone] Allergies Allergen (clinical drug ingredient) Drug/Non Drug Allergy documented on EMR Reaction Allergy Type Onset Date Status Bee Sting Unknown Allergy Active REASON FOR VISIT PCP - 10/2022, Heel pain Medications Medication SIG (Take, Route, Frequency, Duration) [...] Once a day for 30 day(s) Active Ezetimibe 10 MG 1 tablet Orally Once a day for 30 day(s) Active Gabapentin 300 MG 1 capsule Orally Once a day for 30 day(s) Active Pramipexole Dihydrochloride 0.5 MG 1 tablet Orally Once a day for 30 day(s) Active Allopurinol Active MethylPREDNISolone (Rene) Active Social History Tobacco Use: Social History [...] Are you an other tobacco user? No Vital Signs Height 6 ft in 11/20/2022 Weight 230 lbs 11/20/2022 BMI 31.19 kg/m2 11/20/2022 Blood pressure systolic 129 mm Hg 11/21/19 23 Blood pressure diastolic 79 mm Hg 023 Encounters Encounter Location Date Provider Diagnosis [facility] [place] [address] [place] [address] 11/20/2022 Bekah Mclean Achilles tendinitis of left lower extremity M76.62 ; Calcaneal spur of left foot M77.32 and Tinea unguium B35.1 Assessments Encounter Date Diagnosis (ICD Code) Assessment Notes Treatment Notes Treatment Clinical Notes Section Notes 11/20/2022 Achilles tendinitis of left lower extremity (ICD-10 - M76.62) 11/20/2022 Calcaneal spur of left foot (ICD-10 - M77.32) 11/20/2022 Tinea unguium (ICD-10 - B35.1) Plan Of Treatment Next Appt Details Follow Up: prn, Reason: Progress Notes * Darrius TOUSS[birth year]INTDOB:[birth year] (77 yo M)Acc No.[id number]:11/20/2022 Progress Note Patient:?Darrius Toussaint Provider:?Bekah Mclean DPM :1945???Age:77 Y???Sex:Male Ladarius e:11/20/2022 Address:[address] [place] [address] [id number] Pcp:Dodie Cazares Subjective: * Chief Complaints: * ???PCP - 10/2022Heel pain * HPI: ???Heel pain:?Nature:?sharp pain , tenderness.?Location:?Back of heel, LEFT.?Duration:?a week.?Onset/Cause:?sudden , denies trauma.?Course:?, improved , at approximately 90%.?Aggrevated:?standing, walking, walking first thing in the morning/after rest.?Treatments:?rest , ice , medication ( Motrin, Medrol pack from [facility]? * ROS:?General/Constitutional:?Nausea?denies.?Vomiting?denies.?Hunger Thirst?denies.?Loss appetite?denies.?Chills?denies.?Fatigue?denies.?Fever?denies.?Night Sweats?denies.?Unexplained weight loss?denies.?Unexplained weight gain?denies.?HEENTM:?Dentures?denies.?Dizziness?denies.?Glasses/contacts?admits.?Retinopathy?de nies.?Blurred/double vision?denies.?TMJ?denies.?Discharge/drainage?denies.?Implants?denies.?Sore throat?denies.?Dental implants?denies.?Hard of hearing ?denies.?Difficulty chewing/swallowing/speaking?denies.?Nose bleeds?denies.?Sore mouth?denies.?Respiratory:?On Oxygen?denies.?Pneumonia/pleurisy?denies.?Bronchitis?denies.?Emphysema?denies.?C oughing?denies.?Cough blood?denies.?Shortness of breath?denies.?Wheezing?denies.?Cardiovascular:?Pacemaker?denies.?MVP?denies.?WPW?denies.?CHF?denies.?Heart attack?denies.?Septal defect?denies.?Rapid beat?denies.?Chest pain ?denies.?Atrial Fib.?denies.?Murmur/Palpitations?denies.?Gastrointestinal:?Hemorrhoids?denies.?Stomach/Abdominal pain?denies.?Dark blood stool?denies.?Irritable bowel ?denies.?Constipation?denies.?Diarrhea?denies.?Hematology:?Swelling?denies.?Clots?denies.?Varicose Veins?denies.?Bruising?denies.?Bleeding problem?denies.?Genitourinary:?Blood urine?denies.?Frequent/Painfu/urination/bladder control?denies.?Kidney stones?denies.?Infection (UTI)?denies.?Nephropathy?denies.?sex trans dis (STD)?denies.?Prostate?denies.?Musculoskeletal:?Hammertoes?denies.?Bunions?denies.?Back Pain?denies.?Muscle Cramps/ Resting?denies.?Muscle cramps / walking?denies.?Generalized aches and pains?denies.?Weakness?denies.?Integ.:?Richter?denies.?Scars?denies.?Corns/calluses?denies.?Ingrown nails?denies.?Painful nails?denies.?Open Sores?denies.?Rashes?denies.?Neurologic:?Difficulty sleeping?denies.?Brain disorder?denies.?Numbness?denies.?Balance trouble?denies.?Confusion?denies.?Fainting/blackouts?denies.?Tingling?denies.?Tr emors?denies.? * Medical History:? * Surgical History:?[facility] Surgery 2010 * Hospitalization/Major Diagno stic Procedure:?Denies Past Hospitalization * Family History:?Mother: dece ased.?Father: .? * Social History:?Tobacco Use:?Tobacco Use/Smoking?Are you a:?nonsmoker ?Tobacco use other than smoking?Are you an other tobacco user??No ???Drugs/Alcohol:?Drugs?Have you used drugs other than those for medical reasons in the past 12 months??No ?Alcohol Screen?Did you have a drink containing alcohol in the past year??Yes ?How often did you have a drink containing alcohol in the past year??Monthly or less (1 point) ?Points?1 ?Interpretation?Negative ???Miscellaneous:?Caffeine: yes, frequency: , 1-2 cups per day. ?Children: yes. ?Exercise: yes, golf, bike riding, gardening/yard work, richard lifting. ?Marital status: . 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 * Medications:?TakingMethylPRE DNISolone (Rene) Allopurinol Pramipexole Dihydrochloride 0.5 MG Tablet 1 tablet Orally Once a dayGabapentin 300 MG Capsule 1 capsule Orally Once a dayPantoprazole Sodium 40 MG Tablet Delayed Release 1 tablet Orally Once a dayRosuvastatin Calcium 20 MG Tablet 1 tablet Orally Once a dayEzetimibe 10 MG Tablet 1 tablet Orally Once a dayTaking MethylPREDNISolone (Rene) Taking Allopurinol Taking Pramipexole Dihydrochloride 0.5 MG Tablet 1 tablet Orally Once a dayTaking Gabapentin 300 MG Capsule 1 capsule Orally Once a dayTaking Pantoprazole Sodium 40 MG Tablet Delayed Release 1 tablet Orally Once a dayTaking Rosuvastatin Calcium 20 MG Tablet 1 tablet Orally Once a dayTaking Ezetimibe 10 MG Tablet 1 tablet Orally Once a dayNot-Taking/PRNTamsulosin HCl 0.4 MG Capsule 1 capsule Orally Once a dayFenofibrate 160 MG Tablet 1 tablet Orally Once a dayMedication List reviewed and reconciled with the patientNot-Taking/PRN Tamsulosin HCl 0.4 MG Capsule 1 capsule Orally Once a dayNot-Taking/PRN Fenofibrate 160 MG Tablet 1 tablet Orally Once a dayMedication List reviewed and reconciled with the patient * Allergies:?Bee Stingyes[Jairo rgies Verified] Objective: * Vitals:?Ht: 6 ft, Wt:230, BM I:31.19, Shoe size: 11, BP:129/79 mm Hg, Ht-cm: 182.88 cm, Wt-k.33 kg. * Examination: ???General Examination: ?GENERAL APPEARANCE:?Reveals a pleasant, alert, well-nourished, well- developed, well hydrated individual, who demonstrates proper attention to hygiene/body habitus, and is in no acute distress, Pt serves as own?historian for office visit today.?ORIENTED:?person, place, and time.?Neurological: ?SENSORY:?Neurological exam reveals intact sensorium, pain sensation normal, vibration sensation intact, pinprick sensation is normal in the lower extremities, Pt denies, anesthesia, burning, paresthesia, tingling, B/L.?DEEP TENDON REFLEXES:?Achilles, 2/4, B/L , Deferred on symptomatic extremity due to discomfort.?Vascular: ?DP PULSES:?3/4, B/L.?PT PULSES:?3/4, B/L.?CAPILLARY FILL TIME:?immediate, all digits, B/L.?SKIN TEMPERTURE GRADIENT OF THE LOWER EXTERMITIES:?warm to cool, proximal to distal, B/L.?HAIR GROWTH/TEXTURE/ELASTICITY/TURGOR:?normal, B/L.?PIGMENTATION:?normal, B/L.?EDEMA:?absent, B/L.?Dermatologic: ?SKIN FINDINGS:?Skin exam reveals normal texture, elasticity, and turgor. There are no masses. The interspaces are clear.?Orthopedic: ?MUSCLE STRENGTH:?5/5 all groups in a symmetrical fashion , B/L.?FOOT MORPHOLOGY:? Decreased Ankle joint dorsiflexion ROM, knee extended.?Heel Pain: ?INSPECTION:?Minimal Pain on palpation to Posterior Superior Aspect Calcaneus,?Mild?Pain on palpation to Achilles tendon/bursa with inflammation and swelling present,Prominent posterior and posterior/superior heel present, LEFT foot,Neg Elton.?X-Rays: ?Findings:?normal bone and soft tissue density consistent for patients age and sex, increase in soft tissue contour and density at the symptomatic site, navicular/cuneiform plantar subluxation with anterior cyma line, positive retrocalcaneal exostosis, no coalitions identified , positive infra-calcaneal exostosis.?Fracture:?Negative fractures identified.?Nails: ?NAILS are:?Elongated, overgrown, dystrophic, lytic, greater than 3mm thick, discolored and friable with crumbly malodorous subungual debris, with pain on palpation , TA , T1.? Assessment: * Assessment: 1.?Calcaneal spur of left fo ot - M77.32?2.?Achilles tendinitis of left lower extremity - M76.62 (Primary), Acute problem, Complicated w/ Multiple Tx Options(4)?3.?Tinea unguium - B35.1? Plan: * Treatment: * Procedure Codes:? * Preventive Medicine:? ??Counseling:?Discussion:?-14: Office or other outpatient visit for the evaluation and management of an established patient, which required a medically appropriate history and/or examination and MODERATE level of DECISION MAKING for: 1 OR MORE CHRONIC PROBLEM(S) THATS WORSENING, 2 STABLE CHRONIC PROBLEMS, A NEWLY DIAGNOSED PROBLEM WITH UNCERTAIN PROGNOSIS, AN ACUTE COMPLICATED INJURY WITH MULTIPLE TREATMENT OPTIONS, OR AN ACUTE PROBLEM WITH ACCOMPANYING SYSTEMIC SYMPTOMS, THAT POSE(S) A MODERATE RISK OF MORBIDITY. THIS CONDITION MAY ALSO INCLUDE RX DRUG MANAGEMENT, OR A DECISON FOR MINOR SURGERY. The visit on the day of the encounter encompassed interpreting the data and educating the patient as to the nature of their condition, treatment options available according to their individual PMH, meds, allergies, and overall health/living conditions, as well as any potential risks or complications that may occur from a failure to adhere to, and participate in, the recommended course of therapy. The discussion included a complete verbal, and/or written explanation of the examination results, any x-rays taken, the proposed diagnosis, and outline of the treatment plan. A schedule for future care needs was also explained. The patient verbalized an understanding of the instructions at this time and agreed to be an active participant in their treatment. If the patient should think of any questions or concerns after the visit, I have encouraged the patient to call the office.?Fungal Nail Counseling:?The patient was counseled on the diagnosis, potential etiologies (including, but not limited to, environmental factors, genetic, immune deficiency), and the multiple treatment options for Onychomycosis. We discussed the risks and benefits of each option from performing no treatment, to ultraviolet light shoe treatment, to laser nail treatment, to applying topical antifungals, to taking oral antifungal medication, to surgical removal of the involved nail(s) with or without performing a matricectomy, or any combination thereof. We discussed the advantages and disadvantages of each of possible treatment and importance for adherence to all the recommended therapies for optimum success. This includes the necessity for weekly emery board self nail home debridements, and control the nail and skin environment as much as possible by only using a fresh, dry pair of shoes/socks each day, as well as keeping the skin as dry as possible through the use of sprays/powders if necessary. The patient was instructed to discard the emery board after use to prevent reinfection of the involved nail(s). We discussed the mycological and visual clinical effectiveness of topical vs oral antifungal treatments as well as each ones potential side effects and/or any patient- specific medication interactions. We discussed the reasons behind the important requirement of regular liver function testing with oral antifungal therapy for safety. Patient questions regarding use, dosage, successful outcomes, blood tests, and possible pharmaceutical interactions were reviewed and the patient verbalized that all answers were clearly understood , The Pt prefers topical treatment.?Heel pain:?ACHILLES: I explained to the patient the possible etiologies of Achilles Tendonitis including foot type/shoegear/activity level/exercise routine and the risks/benefits of all the different treatment options for pain including: No treatment at all, Rest, Ice, NSAIDs(only if well tolerated after meals), New/supportive Shoegear, Strappings and Tapings, Stretching exercises, Deep Tissue Massage, Heel cups/cushions, Arch support/shoe inserts, Custom orthoses, Topical analgesics including Aspercream/Voltaren gel, Night splint/AFO Bracing for stiffness, Cast boot with crutches/cane/or walker for assisted ambulation, Physical Therapy, EPAT/ESWT, Interfil injection therapy, as well as surgical [place]/Calcanectomy- tendon debridement surgical procedures if needed. Recommendations were made to limit barefoot walking, eliminate wearing nonsupportive shoegear (i.e. flip-flops or sandals, or a shoe with an easily bendable, foldable, or twistable sole) and wear shoegear with a good solid sole, a supportive arch, and plenty of room for an insert/orthotic if necessary. If wearing sandals was required by the patient, we recommended orthopedic sandals such as Orthoheel or Birkenstock even while in the home. If the patient wore heels in the past, we recommended they continue, but eliminate the use of flats. The advantages and disadvantages of each option were discussed and the patients' questions re: shoegear, custom vs prefabricated inserts, activity level, PO vs Topical medications (and their respective potential complications/drug interactions/side effects), and consistency in home treatment regimens for optimal success were answered to their verbally confirmed satisfaction. Literature detailing Achilles Tendonitis and the various treatment options were dispensed and reviewed.?Orthotics:?I explained to the patient the benefits of OT use. I explained that orthoses are medically necessary to decrease the foot pain through proper mechanical control, support of their foot.?P.R.I.C.E.:?The patient was counseled on the use of P.R.I.C.E. and NSAIDS (if well tolerated) to aid in the recovery from their painful condition.?Stretching Exercises:?Stretching and deep tissue massage exercises for the patients injury/diagnosis were discussed and demonstrated, Handouts were also given.? * Follow Up:?prn * Images: * Sign off status: Completed true * Provider:?Bekah Mclean DPM Date:? Generated for Ana zhang/Duc/Kelsey on:?03/16/2024 07:26 PM EST History and Physical Notes * HPI (History of Present Illness) Category Sub-Category Detail Notes Category Not es Heel pain Duration: a week Nature: sharp pain , tendern ess Location: Back of heel, LEFT Onset/Cause: sudden , denies trau ma Aggravated: standing, walking, w alking first thing in the morning/after rest Course: , improved , at appr oximately 90% Treatments: rest , ice , medicat ion ( Motrin, Medrol pack from [facility]) Examination Category Sub-Category Detail Notes Category Not es Neurological SENSORY: Neurological exa m reveals intact sensorium, pain sensation normal, vibration sensation intact, pinprick sensation is normal in the lower extremities, Pt denies, anesthesia, burning, paresthesia, tingling, B/L DEEP TENDON REFLEXES: Achilles, 2/4, B/L , Deferred on symptomatic extremity due to discomfort Dermatologic SKIN FINDINGS: Skin exam reveal s normal texture, elasticity, and turgor. There are no masses. The interspaces are clear Orthopedic FOOT MORPHOLOGY: Decreased Ankle joint dorsiflexion ROM, knee extended MUSCLE STRENGTH: 5/5 all groups in a symmetrical fashion , B/L General Examination GENERAL APPEARANCE: Reveals a pleasant, alert, well- nourished, well-developed, well hydrated individual, who demonstrates proper attention to hygiene/body habitus, and is in no acute distress, Pt serves as own historian for office visit today ORIENTED: person, place, and t bret Vascular DP PULSES(B): 3/4, B/L PT PULSES(B): 3/4, B/L CAPILLARY FILL TIME: immediate, all digi ts, B/L TEMPERTURE GRADIENT(C): warm to cool, pr oximal to distal, B/L TROPHIC CONDITION-TEXTURE/ELASTICITY/TURGOR/HAIR GROWTH(B): normal, B/L EDEMA(C): absent, B/L PIGMENTATION: normal, B/L Nails NAILS are: Elongated, overg rown, dystrophic, lytic, greater than 3mm thick, discolored and friable with crumbly malodorous subungual debris, with pain on palpation , TA , T1 X-Rays - IMAGING REPORT Findings: normal b one and soft tissue density consistent for patients age and sex, increase in soft tissue contour and density at the symptomatic site, navicular/cuneiform plantar subluxation with anterior cyma line, positive retrocalcaneal exostosis, no coalitions identified , positive infra-calcaneal exostosis Fracture: Negative fractures i dentified Heel Pain INSPECTION: Minimal Pain on palpation to Posterior Superior Aspect Calcaneus, Mild Pain on palpation to Achilles tendon/bursa with inflammation and swelling present, Prominent posterior and posterior/superior heel present, LEFT foot, Neg Elton
== END 2024-03-10 13:59 | disposition home or self-care (01) ==
PROVIDERS: PCP Internal Medicine; Visit Provider Urology
DX: N52.9 Male erectile dysfunction, unspecified (principal); N40.1 Benign prostatic hyperplasia with lower urinary tract symptoms; R35.0 Frequency of micturition; R68.82 Decreased libido; Z13.9 Encounter for screening, unspecified
CPT/HCPCS: 99213

== ENCOUNTER → 2024-03-10 13:16 | Outpatient (BNVA) | payer MEDICARE, SELFPAY | PROVIDERS: PCP Internal Medicine; Visit Provider Urology | DX: N52.9 Male erectile dysfunction, unspecified (principal); N40.1 Benign prostatic hyperplasia with lower urinary tract symptoms; R35.0 Frequency of micturition; R68.82 Decreased libido | CPT/HCPCS: 81003; 99212 ==

== ENCOUNTER 2024-06-29 09:07 | Outpatient (REF) | payer MEDICARE, SELFPAY ==
[2024-06-29 11:22] LABS: MANUAL DIFF FLAG NO
[2024-06-29 11:27] LABS: Basophils Percent Auto 0.6 % (0-2); Eosinophils Absolute Auto 0.6 X10*3/uL (0.0-0.4); Eosinophils Percent Auto 8.5 % (0-4); Hematocrit 45.7 % (42.0-52.0); Imm Gran Abs Auto 0.02 X10*3/uL (0.00-0.03); Imm Gran Pct Auto 0.3 % (0.0-0.4); Lymphocytes Absolute Auto 2.6 X10*3/uL (1.2-4.9); Lymphocytes Percent Auto 36.9 % (20-40); Mean Corpuscular Hemoglobin 30.7 pg (27.0-33.0); Mean Corpuscular Volume 87.5 fL (80.0-98.0); Mean Platelet Volume 11.9 fL (9.4-12.4); Monocytes Absolute Auto 0.6 X10*3/uL (0.1-1.2); Monocytes Percent Auto 7.9 % (2-11); Neutrophils Absolute Auto 3.3 x10*3/uL (2.0-8.3); Neutrophils Percent Auto 45.8 % (45-73); Platelet Count 181 X10*3/uL (160-400); Red Blood Count 5.22 X10*6/uL (4.60-5.80); White Blood Count 7.1 X10*3/uL (4.8-10.8)
[2024-06-29 11:50] LABS: Estimated Average Glucose 131 mg/dL; Hemoglobin A1c % 6.2 % (<6.0)
[2024-06-29 12:15] LABS: Alanine Aminotransferase 83 U/L (0-40); Albumin Level 4.1 g/dL (3.5-5.0); Alkaline Phosphatase 54 U/L (39-117); Anion Gap 9 (12-20); Aspartate Amino Transferase 56 U/L (5-37); Bilirubin Total 0.8 mg/dL (0.0-1.0); Blood Urea Nitrogen 16 mg/dL (9-16); Calcium 9.5 mg/dL (8.4-10.2); Carbon Dioxide 26 mmol/L (22-29); Chloride 113 mmol/L (96-108); Cholesterol 158 mg/dL (<200); Estimated Glomerular Filt Rate > 60; Free T4 (Free Thyroxine) 0.92 ng/dL (0.71-1.85); Glucose Random 134 mg/dL (60-115); HDL Cholesterol 42 mg/dL (>40); LDL Cholesterol Calculated 77 mg/dL (<100); Potassium 4.1 mmol/L (3.3-5.1); Sodium 144 mmol/L (135-145); Thyroid Stimulating Hormone 3.36 uIU/mL (0.32-4.0); Triglycerides 195 mg/dL (<150)
[2024-06-29 12:16] LABS: Folate 13.2 ng/mL (> or = 4.0); Vitamin B12 439 pg/mL (200-900)
== END 2024-06-29 09:08 | disposition home or self-care (01) ==
LOC: HO.WFDLDS 09:07
PROVIDERS: Visit Provider Internal Medicine
DX: R73.02 Impaired glucose tolerance (oral) (principal); E78.00 Pure hypercholesterolemia, unspecified
CPT/HCPCS: 36415; 80053; 80061; 82607; 82746; 83036; 84439; 84443; 85025

== ENCOUNTER 2024-07-12 08:43 | Outpatient (AMB) | payer MEDICARE, SELFPAY ==
[2024-07-12 08:45] VITALS: BP 130/76; PULSE 56; O2SAT 96; BMI 31.1
--- NOTE | 2024-07-12 08:45 | MHC.PC.OV ---
Vital Signs 07/12/24 08:45 Height 6 ft Weight 229 lb BMI 31.1 BP 130/76 Blood Pressure Location Lt brachial Position Sitting Pulse 56 Pulse Source Pulse Oximeter Pulse Oximetry (%) 96 Oxygen Delivery Method Room Air Intake Visit Reasons: PE Allergies bee venom protein (honey bee) Allergy (Severe, Verified 07/12/24 08:47) Anaphylaxis Medication List - Last Reconciled 07/12/24 by Dodie Cazares MD allopurinol 300 mg PO DAILY epinephrine 0.3 mL IM Q10M PRN ezetimibe 10 mg PO DAILY fenofibrate 160 mg PO DAILY fluticasone propionate 50 mcg/actuation (Flonase Allergy Relief) 1 spray intranasal DAILY gabapentin (Neurontin) 600 mg PO BEDTIME pantoprazole (Protonix) 40 mg PO DAILY pramipexole (Mirapex) 0.5 mg PO TID rosuvastatin (Crestor) 20 mg PO DAILY tadalafil 10 mg PO DAILY 90 days tadalafil 20 mg PO ONCE PRN 30 days zolpidem (Ambien) 5 mg PO BEDTIME PRN Tobacco use date assessed: 07/12/24 Fall risk assessment: No Falls in past year Last assessed Fall Risk: 07/12/24 Dental Screening Dental Screen Date: 07/12/24 Did you have a dental visit in the last 12 months?: Yes Did you have a dental problem in the last 6 months where you did not have access to dental care?: No Was dental information given to patient?: Patient has dentist HPI PE HPI Details occ dizziness PFSH Medical History (Updated 07/12/24 @ 09:34 by Dodie Cazares MD) Impaired glucose tolerance GERD (gastroesophageal reflux disease) Esophageal stricture Diverticulitis Peripheral neuropathy H/O: pneumonia Tubular adenoma Screening for prostate cancer Olecranon bursitis, right elbow Elbow pain, right Onychomycosis Adult general medical exam Screening for colon cancer Dizziness Impacted cerumen of both ears Status post administration of all doses of COVID-19 vaccine series Anxiety Vitamin D deficiency Fatty liver Insomnia Restless leg syndrome Gout Umbilical hernia Left inguinal hernia Hypercholesterolemia BPH (benign prostatic hyperplasia) Erectile dysfunction Splenic artery aneurysm Peroneal tendonitis of right lower extremity Surgical History H/O esophagogastroduodenoscopy History of colonoscopy History of surgery History of laparoscopic cholecystectomy History of cataract surgery Status post appendectomy Family History Father CVD (cardiovascular disease) Heart problem Mother Pneumonia Brother CVD (cardiovascular disease) Prostate cancer Sister Ovarian cancer Sister Cancer Son In good health Daughter In good health Social History Housing: House Alcohol intake: current Alcohol intake frequency: a few times a month Alcohol type: beer Comment: 2 beers a day Patient Tobacco Use Status: Never used Tobacco Tobacco use type: Cigarette e-Cigarette/Vaping Use: Never Used Second Hand Smoke Exposure: No service: Yes 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al status: retired 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 1. Little interest or pleasure in doing things: not at all 2. Feeling down, depressed, or hopeless: not at all 3. Trouble falling or staying asleep, or sleeping too much: not at all 4. Feeling tired or having little energy: not at all 5. Poor appetite or overeating: not at all 6. Feeling bad about yourself - or that you are a failure or have let yourself or your family down: not at all 7. Trouble concentrating on things, such as reading the newspaper or watching television: not at all 8. Moving or speaking so slowly that other people could have noticed. Or the opposite - being so fidgety or restless that you have been moving around a lot more than usual: not at all 9. Thoughts that you would be better off or of hurting yourself in some way: not at all Total score: 0 Depression Screening Interpretation: Negative Depression Screening Done: Yes 18849 - PHQ-9 Billing: Yes Source: Developed by Drs. Matt Mcqueen, Genny Bailey, Michele Shah and colleagues, with an educational micaela from [employer]. Thrive Questionnaire Date Thrive assessed: 07/12/24 I am a: Patient What is your living situation today?: I have a steady place to live Within the past 12 months, did the food you bought not last and you didn't have the money to get more?: Never true Within the past 12 months, did you worry whether your food would run out before you got money to buy more?: Never true Do you have trouble paying for medicines?: No Do you have trouble getting transportation to medical appointments?: No Do you have trouble paying your heating and electricity bill?: No Do you have trouble taking care of your child, family member or friend?: No Do you have trouble with day-to-day activities such as bathing, preparing meals, shopping, managing finances, etc.?: No Are you currently unemployed and looking for a job?: No Are you interested in more education?: No Currently or been in a relationship where the following occur: No concerns reported THRIVE Score: 0 AUDIT C Alcohol Use Questionnaire (AUDIT-C) 1. How often do you have a drink containing alcohol?: 2-4 times a month 2. How many drinks containing alcohol do you have on a typical day when you are drinking?: 1 or 2 3. How often do you have six or more drinks on one occasion?: Monthly Total Score: 4 STEPHANIE-7 AMB Questionnaire STEPHANIE-7 Date STEPHANIE - 7 assessed: 07/12/24 Feeling nervous, anxious, or on edge: 0 = Not at all Not being able to stop or control worryin = Not at all Worrying too much about different things: 0 = Not at all Trouble relaxin = Not at all Being so restless that it is hard to sit still: 0 = Not at all Becoming easily annoyed or irritable: 0 = Not at all Feeling afraid as if something awful might happen: 0 = Not at all Total STEPHANIE-7 score (0-4 normal; 5-9 mild; 10-14 moderate; 15-21 severe): 0 Source: Developed by Drs. Matt Mcqueen, Genny Bailey, Michele Shah and colleagues, with an educational micaela from [employer]. STEPHANIE-7 Assessment Billing STEPHANIE-7 Assessment Tool: STEPHANIE-7 Assessment 89192 Review of Systems Const Denies poor appetite and Denies weakness Eyes Denies no additional complaints ENT Reports Normal hearing present, Denies dizziness, Denies nasal congestion, Denies tinnitus and Denies sore throat Card Denies chest pain, Denies syncope, Denies rapid heart rate and Denies dyspnea Resp Denies cough and Denies dyspnea GI Denies change in stool character, Reports constipation, Denies diarrhea, Denies nausea and Denies vomiting Denies dysuria and Denies urinary frequency Neuro Reports Normal hearing present, Denies confusion, Denies dizziness, Denies syncope and Denies weakness Psych Denies confusion Physical exam (Primary Care) Vital Signs: Last Vital Signs Pulse 56 07/12/24 08:45 BP 130/76 07/12/24 08:45 Pulse Ox 96 07/12/24 08:45 Oxygen Delivery Method Room Air 07/12/24 08:45 BMI result Body Mass Index 31.1 Tobacco/Smoking Status: Tobacco use Status Tobacco use date assessed 07/12/24 07/12/24 08:53 Patient Tobacco Use Status Never used Tobacco 07/12/24 08:53 Tobacco use type Cigarette 07/12/24 08:53 e-Cigarette/Vaping Use Never Used 07/12/24 08:53 PHQ-9: PHQ-9 Score PHQ-9: Total score 0 07/12/24 09:01 Depression Screening Interpretation: Negative Thrive Assessment: Date of Thrive Assessment Date Thrive assessed 07/12/24 07/12/24 08:53 Currently or been in a relationship where the following occur: No concerns reported Const General: No confusion Orientation/consciousness: No confusion HENMT Head: Yes normocephalic Ears: external ears normal and TM's normal bilaterally Face and sinus: Yes normal facial exam Mouth: moist mucous membranes Throat: Yes tonsils normal Eyes Conjunctivae: conjunctivae normal Pupils: Equal, round and reactive pupils present and Pupil accommodation reflex normal Direct Ophthalmoscopy: normal light reflex Neck Neck: No lymphadenopathy Thyroid: Thyroid normal Chest Chest palpation & inspection: normal inspection of the chest Resp Effort & Inspection: normal respiratory effort and no audible wheezes Auscultation: clear to auscultation bilaterally, no crackles, no wheezes and lung sounds not diminished Cardio Rate: regular rate Rhythm: regular rhythm Peripheral pulses: radial pulses present and dorsalis pedis present GI Palpation (GI): no masses Auscultation: normal bowel sounds and normoactive bowel sounds Rectal Exam - Male: Yes deferred Skin General skin exam: no rashes or lesions noted Rashes: no rashes Neuro General: No confusion Cranial nerves: Yes Equal, round and reactive pupils present and Yes Normal hearing present Cognition (Neuro): normal cognition Gait exam (Neuro): Normal gait present Motor exam (neuro): 5/5 motor strength present throughout Deep tendon reflexes (DTR's): Right brachioradialis reflex intensity grade: 2+, Left brachioradialis reflex intensity grade: 2+, Right patellar reflex intensity grade: 2+ and Left patellar reflex intensity grade: 2+ Extrem General: No edema Coding Level of Care Code Est Pt Prev Care >65y(25854) Diagnoses Annual physical exam Z00.00 Type 2 diabetes mellitus with hyperglycemia E11.65 Hypogonadism in male E29.1 Hypercholesterolemia E78.00 Benign prostatic hyperplasia with urinary frequency N40.1; R35.0 Lower urinary tract symptom detail: urinary frequency Lower urinary tract symptom presence: symptoms present Splenic artery aneurysm I72.8 MCGRATH (nonalcoholic steatohepatitis) K75.81 Gastroesophageal reflux disease without esophagitis K21.9 Esophagitis presence: without esophagitis Hearing difficulty H91.90 Knee pain M25.569 Peripheral neuropathy G62.9 Umbilical hernia K42.9 Additional Codes STEPHANIE-7 Assessment Billing - STEPHANIE-7 Assessment Tool: STEPHANIE-7 Assessment 54066 ([id number]) PHQ-9 - 10622 - PHQ-9 Billing: Yes ([id number]) Assessment & Plan Assessment & Plan (1) Annual physical exam: Code(s): Z00.00 - Encounter for general adult medical examination without abnormal findings Category: Medical Plan: Patient is advised to eat healthy, keep well hydrated, keep active and have adequate sleep. (2) Type 2 diabetes mellitus with hyperglycemia: Comment: Dr. Cisneros Code(s): E11.65 - Type 2 diabetes mellitus with hyperglycemia Category: Medical Plan: Decrease the amount of carbohydrate intake, pasta, bread, rice and potatoes are all sugar and that is aside from all the sweet stuff, remember that fruits are good but they are Sweet also. Hemoglobin A1c goal of less than 7.0 (3) Hypogonadism in male: Code(s): E29.1 - Testicular hypofunction Category: Medical Plan: Patient follows up with urology on tadalafil (4) Hypercholesterolemia: Code(s): E78.00 - Pure hypercholesterolemia, unspecified Category: Medical Plan: Avoid fried foods, chicken skin, eggs, butter margarine, pastries and meat. Be it pork or beef they have a lot of cholesterol LDL goal of less than 100 and triglyceride of less than 150 on Zetia and rosuvastatin and fenofibrate (5) BPH (benign prostatic hyperplasia): Comment: Flomax Code(s): N40.0 - Benign prostatic hyperplasia without lower urinary tract symptoms Category: Medical Qualifiers: Lower urinary tract symptom detail: urinary frequency Lower urinary tract symptom presence: symptoms present Qualified Code(s): N40.1 - Benign prostatic hyperplasia with lower urinary tract symptoms; R35.0 - Frequency of micturition Plan: Continue with tadalafil (6) Splenic artery aneurysm: Comment: September 2017, October 2018 8 mm stable. April 2021 1 cm, 9 mm August 2022- retest 2-3 years Code(s): I72.8 - Aneurysm of other specified arteries Category: Medical Plan: Will continue monitoring (7) MCGRATH (nonalcoholic steatohepatitis): Code(s): K75.81 - Nonalcoholic steatohepatitis (MCGRATH) Category: Medical Plan: Low-fat diet and exercise (8) GERD (gastroesophageal reflux disease): Code(s): K21.9 - Gastro-esophageal reflux disease without esophagitis Category: Medical Qualifiers: Esophagitis presence: without esophagitis Qualified Code(s): K21.9 - Gastro-esophageal reflux disease without esophagitis Plan: Avoid the foods that causes that usually spicy foods, tomato products, juices, coffee, soda and foods that your sensitive to. After eating do not lie down, allow 3-4 hours before in lie down. And keep the head of bed above 30 degrees to avoid the acid from going up. On pantoprazole (9) Hearing difficulty: Code(s): H91.90 - Unspecified hearing loss, unspecified ear Category: Medical (10) Knee pain: Code(s): M25.569 - Pain in unspecified knee Category: Medical (11) Peripheral neuropathy: Code(s): G62.9 - Polyneuropathy, unspecified Category: Medical (12) Umbilical hernia: Comment: w/repair 2010 Code(s): K42.9 - Umbilical hernia without obstruction or gangrene Category: Medical (13) Knee pain: Code(s): M25.569 - Pain in unspecified knee Category: Medical (14) Peripheral neuropathy: Code(s): G62.9 - Polyneuropathy, unspecified Category: Medical Plan History of Present Illness The patient is a 78-year-old male presenting for an annual physical examination and management of multiple chronic conditions, including obesity, benign prostatic hyperplasia (BPH), management of a stable splenic artery aneurysm, nonalcoholic steatohepatitis (MCGRATH), and gastroesophageal reflux disease (GERD). The patient's type 2 diabetes mellitus newly established diagnosis is discussed in context with rising glucose levels and a nonsignificant but increasing hemoglobin A1c. There are longstanding issues with hypercholesterolemia, controlled LDL levels, but persistent elevated triglycerides. The patient's lightheadedness correlated with positional changes remains under observation, and he denies any substantial fainting events. Musculoskeletal concerns include knee pain likely associated with previous running activities, with analgesic and supportive measures being considered. Nutritional assessment indicates a high intake of alcohol contrary to recommended limitations given the MCGRATH diagnosis. The patient continues regular follow-up for BPH with a urologist using tadalafil and reports satisfactory management of erectile dysfunction. Within the cardiovascular context, the patient engages with efforts to modify dietary intake, acknowledging lifestyle changes could benefit the status of lipid panels and liver enzymes affected potentially by sweets and specific protein consumption habits. The healthcare plan incorporates all current findings and aims to align with prevention and intervention based goals were minimizing progression risks for diabetes control, joint health, and a thorough review of chronic medication adherence and possible interactions is paramount. Health Maintenance - Vaccinations up to date, including shingles, tetanus, RSV, and pneumonia - Last colonoscopy in April 2022 - Follow-up of stable splenic artery aneurysm, with a CT angiogram from August 2022 - Annual eye examination, including diabetic retinal screening to be informed under diabetes diagnosis - LDL cholesterol managed to goal at 77 mg/dL; triglyceride level at 195 mg/dL - Monitoring and lifestyle university counselor for nonalcoholic fatty liver disease with recommended exercise and reduced alcohol intake Social History - Moderate alcohol consumption, approximately two beers daily - No tobacco or recreational drug use reported - Regular physical activity, primarily golfing; decreased pace noted on inclines - Nutritional intake includes a preference for sweets and occasional pastas, with acknowledgment to reduce intake for better health management - Experiencing energy decline in afternoon hours, possibly linked to sleep quality and hydration level Review of Systems - General: Denies fever or night sweats; reports fatigue in afternoons - Neurological: Reports occasional lightheadedness with positional changes; denies passing out - Musculoskeletal: Reports knee pain; denies difficulty with usual activities - Cardiovascular: Denies chest pain, no reported dyspnea except mild exertional - Gastrointestinal: Reports occasional heartburn controlled with pantoprazole; bowel movements regular with no blood detected - Genitourinary: Normal urination reported; denies blood in stools Physical Exam General: Cooperative, healthy appearing, comfortable, no acute distress and well developed Orientation: Patient oriented x3 Limitations: No limitations Head: Normal to inspection Ears: Hearing test recommended as patient reports needing one Nose: Normal external nose present Face and sinus: Normal facial exam Eyes: Appearance normal, both eyes and all related structures Neck: Normal visual inspection and Yes full ROM Respiratory: Normal respiratory effort and able to speak in complete sentences. Clear to auscultation bilaterally Cardiovascular: Regular rate and rhythm. Normal S1 and S2 GI: Normal to inspection. Soft to palpation and nontender Skin: No rashes or lesions noted Neuro: Patient oriented x3 Extremities: Normal to inspection, but patient reports knee pain, especially in the left knee, with a burning sensation. X-rays ordered for both knees. Results - Labs: Elevated fasting glucose recorded at 130-134 mg/dL; hemoglobin A1c at 6.2 - Lipid Panel: LDL at 77 mg/dL, triglycerides at 195 mg/dL - Liver function: Elevated ALT at 83 U/L; other electrolytes within normal limits - Kidney function: Within normal parameters - Previous CT: Abdominal CT angiogram of splenic artery aneurysm stable from August 2022 Plan I will focus on treating the patient?s obesity through lifestyle modifications and maintaining activity levels. For BPH, tadalafil will continue with routine urological follow-up. Splenic artery aneurysm monitoring will remain annual pending symptom evaluation. For type 2 diabetes mellitus, lifestyle alterations supplementing dietary limitations will be implemented with further glucose control consideration for altered pharmacological approaches. Liver function associated with MCGRATH will undergo repeat testing and imaging contingent on evident hepatic progression. Lipid control for hypercholesterolemia remains implemented, though triglyceride mitigation necessitates augmented exercise scheduling. Pantoprazole will persist in gastroesophageal reflux disease management, harmonizing digestive care through systemic diet particularities. Enhanced attention to preventive care in the possible form of hearing evaluations and nutritional supplementation outlines systemic interventions establishing integrated patient care fastidious to chronic management. Patient was informed and verbally consented to the use of an ambient scribe for clinic note documentation during this visit. Discussion Notes I discussed with the patient the significance of maintaining weight management, elucidating the impact of obesity on overall health. The role of tadalafil in managing benign prostatic hyperplasia was reaffirmed, including continuity of urological assessment. I advised education regarding dietary alterations to mitigate type 2 diabetes mellitus risks, emphasizing glucose monitoring as a necessary step should changes prove incremental or insufficient. During this session, we discussed the importance of liver health in conjunction with alcohol intake plummeting, setting consent on future testing procedures to discern nonalcoholic steatohepatitis status. Patient consultation included concerns presented by persistent triglyceride indices where physical measures may attenuate underlying symptoms if moderated. Continuing current gastroesophageal reflux disease treatment effectively controlled heartburn confirming medication therapy is guaranteed. Patient understanding was asserted for preventative audiological screening hence offset associated morbidities, clarifying patient expectations for the surgical consultation for the umbilical hernia. The overall care plan was comprehensively outlined, with the patient expressing comprehension and consenting to the detailed management plan. Patient Instructions - Continue to manage weight proactively through diet and exercise - Monitor blood sugar levels regularly to manage Type 2 diabetes effectively - Limit alcohol consumption to support liver health - Take pantoprazole as prescribed to manage GERD symptoms - Follow up with urology for benign prostatic hyperplasia management - Schedule and attend a hearing test to assess auditory function - Perform regular foot inspections for signs of diabetic neuropathy Orders: Orders Creatinine Urine Today E11.65 - Type 2 diabetes mellitus with hyperglycemia [address] angio abdomen Today I72.8 - Aneurysm of other specified arteries Comprehensive Met. Panel Today K75.81 - Nonalcoholic steatohepatitis (MCGRATH) Lipid Panel Today E78.00 - Pure hypercholesterolemia, unspecified, K75.81 - Nonalcoholic steatohepatitis (MCGRATH) XR Knee Mark 3V Today M25.569 - Pain in unspecified knee Microalbumin, Random (w Creat) Today E11.65 - Type 2 diabetes mellitus with hyperglycemia Referrals General Surgery Referral K42.9 - Umbilical hernia without obstruction or gangrene Nutrition/Dietitian Referral E11.65 - Type 2 diabetes mellitus with hyperglycemia Speech and Hearing Referral H91.90 - Unspecified hearing loss, unspecified ear
--- OUTSIDE RECORDS SUMMARY | 2024-07-12 09:24 | XMS_ITS | Patient Health Record ---
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
--- OUTSIDE RECORDS SUMMARY | 2024-07-12 09:24 | XMS_ITS | Patient Health Record ---
Author Organization [facility] Address [address] [place] [address] Care Team Providers Care Director Of Development Name Role Phone Po Doide PRIETO Primary Care Provider Matt Cooper Unavailable [phone] Reason For Referral No Information Medications Medication [...] EVERYDAY AT BEDTIME Oral for 90 Active Immunizations Vaccine Route Administration Date Status Comme nts Influenza Unknown 12/03/2019 Administered Influenza Unknown 02/07/2022 Administered Social History Alcohol Screen Question Answer Notes Did you [...] monthly (1 point) Points 5 Interpretation Positive Section Notes: Nonsmoker; drinks beer occas ionally Nonsmoker; drinks beer occas ionally Nonsmoker; drinks beer occas ionally Nonsmoker; drinks beer occas ionally Problems Problem Type SNOMED Code ICD Code Onset Dates Problem Status W/U Status Risk Notes Problem 830907193 Encounter for screening for malignant neoplasm of colon (Z12.11) Active confirmed Problem 088913607 History of adenomatous polyp of colon (Z86.010) Active confirmed Problem Diverticular disease of colon (211732552) Diverticulosis of large intestine without perforation or abscess without bleeding (K57.30) Active confirmed Problem Screening for malignant neoplasm of rectum (172566967) Encounter for screening for malignant neoplasm of rectum (Z12.12) Active confirmed Problem Family History of Cancer of Colon (Situation) (075285432) Family history of colon cancer (Z80.0) Active confirmed Problem Esophageal stricture (18281959) Esophageal stricture (K22.2) Active confirmed Problem 816280650 Esophageal spasm (K22.4) Active confirmed Problem 168878413 GERD without esophagitis (K21.9) Active confirmed Problem 98514052 Esophageal dysphagia (R13.10) Active confirmed Plan Of Treatment Pending Test Test Name Order Date Pathology 04/24/2022 Future Test Test Name Order Date COLONOSCOPY 11/19/2011 COLONOSCOPY 07/25/2016 UPPER GI ENDOSCOPY BALLOOON DILATION OF ESOPH 07/06/2020 COLONOSCOPY 02/21/2022 Insurance Providers Payer Name Payer Address Payer Phone Subscriber Number Group Number Insured Name Patient Relationship to Insured Coverage Start Date Coverage End Date [facility] [address] [address] [place] [address] [id number] SHAWNA JONES Self - patient is the insured Medical (General) History Medical History History ICD Code GERD--2 EGD's in the were not particularly revealing other than a [...] in 2002 and 2006 Hyperlipidemia Gout Denies [place],DM,CVA,Lung disease,renal dise ase Pneumonia - 05/2016 Insomnia FATTY LIVER PERIPHERAL NEUROPATHY MILD DIVERTICULOSIS SPLENIC ARTERY ANEURYSM--seeing Dr. Perry , vascular surgeon ? of very mild diverticulitis in 2014 Seasonal allergies Colonoscopy in 01/2017 was negative Esophageal stricture dilated with an 18- 20mm balloon in 07/2020 Surgical History Surgery Date(Month/Year) CCY Appy
== END 2024-07-12 09:45 | disposition home or self-care (01) ==
LOC: HO.HMCH 08:43
PROVIDERS: PCP Internal Medicine; Visit Provider Internal Medicine
DX: Z00.00 Encounter for general adult medical examination without abnormal findings (principal); E11.65 Type 2 diabetes mellitus with hyperglycemia; E29.1 Testicular hypofunction; E78.00 Pure hypercholesterolemia, unspecified; N40.1 Benign prostatic hyperplasia with lower urinary tract symptoms; R35.0 Frequency of micturition; I72.8 Aneurysm of other specified arteries; K75.81 Nonalcoholic steatohepatitis (NASH); K21.9 Gastro-esophageal reflux disease without esophagitis; H91.90 Unspecified hearing loss, unspecified ear; M25.569 Pain in unspecified knee; G62.9 Polyneuropathy, unspecified; K42.9 Umbilical hernia without obstruction or gangrene

== ENCOUNTER → 2024-07-12 08:43 | Outpatient (BNVA) | payer MEDICARE, SELFPAY | PROVIDERS: PCP Internal Medicine; Visit Provider Internal Medicine | DX: Z00.00 Encounter for general adult medical examination without abnormal findings (principal); E11.65 Type 2 diabetes mellitus with hyperglycemia; E29.1 Testicular hypofunction; E78.00 Pure hypercholesterolemia, unspecified; N40.1 Benign prostatic hyperplasia with lower urinary tract symptoms; R35.0 Frequency of micturition; I72.8 Aneurysm of other specified arteries; K75.81 Nonalcoholic steatohepatitis (NASH); K21.9 Gastro-esophageal reflux disease without esophagitis; H91.90 Unspecified hearing loss, unspecified ear; M25.569 Pain in unspecified knee; G62.9 Polyneuropathy, unspecified; K42.9 Umbilical hernia without obstruction or gangrene | CPT/HCPCS: 96127; 99397 ==

== ENCOUNTER 2024-07-20 08:51 | Outpatient (AMB) | payer MEDICARE, SELFPAY ==
--- NOTE | 2024-07-20 08:58 | MHC.OFFVIS ---
Vital Signs 07/20/24 09:05 Height 6 ft Weight 229 lb BMI 31.1 BP 154/66 H Blood Pressure Location Lt brachial Position Sitting Pulse 66 Intake Visit Reasons: Umbilical hernia without obstruction or gangrene Intake Note: Patient referred by pcp Dr. Cazares for Umbilical hernia. Present years. Hx of umbilical hernia repair in 2010. Patient c/o: bulging out, sensitive to touch. Exchange Teller Required: No Accompanied by: Self / Same As Patient Allergies bee venom protein (honey bee) Allergy (Severe, Verified 07/20/24 09:03) Anaphylaxis HPI Comments Details: Patient presents with a symptomatic enlarging umbilical hernia. He has had this several years time. Because of increased symptoms, he would like to have this repaired. Patient was quite active with workouts and golfing. He otherwise is tolerating his tied. Having regular bowel habits. No GI issues or complaints. Chart was reviewed and patient evaluated [facility] Medical History Impaired glucose tolerance GERD (gastroesophageal reflux disease) Esophageal stricture Diverticulitis Peripheral neuropathy H/O: pneumonia Tubular adenoma Screening for prostate cancer Olecranon bursitis, right elbow Elbow pain, right Onychomycosis Adult general medical exam Screening for colon cancer Dizziness Impacted cerumen of both ears Status post administration of all doses of COVID-19 vaccine series Anxiety Vitamin D deficiency Fatty liver Insomnia Restless leg syndrome Gout Umbilical hernia Left inguinal hernia Hypercholesterolemia BPH (benign prostatic hyperplasia) Erectile dysfunction Splenic artery aneurysm Peroneal tendonitis of right lower extremity Surgical History H/O esophagogastroduodenoscopy History of colonoscopy History of surgery History of laparoscopic cholecystectomy History of cataract surgery Status post appendectomy Family History Father CVD (cardiovascular disease) Heart problem Mother Pneumonia Brother CVD (cardiovascular disease) Prostate cancer Sister Ovarian cancer Sister Cancer Son In good health Daughter In good health Social History Housing: House Alcohol intake: current Alcohol intake frequency: a few times a month Alcohol type: beer Comment: 2 beers a day Patient Tobacco Use Status: Never used Tobacco Tobacco use type: Cigarette e-Cigarette/Vaping Use: Never Used Second Hand Smoke Exposure: No service: Yes 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al status: retired 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 Bilateral groin exam negative. Genitalia within normal limits. Patient was a large reducible umbilical hernia roughly 4 cm in size Assessment & Plan Assessment & Plan (1) Umbilical hernia: Code(s): K42.9 - Umbilical hernia without obstruction or gangrene Category: Surgical Plan Risks, benefits, and alternatives of open umbilical hernia repair with mesh were reviewed with the patient and included but not limited to bleeding, infection, recurrence, numbness, pain, scarring, 4-6 weeks of convalescence and the patient wishes to proceed. He would like to do so on a day which is convenient for him. He will be called by our rehabilitation aide/scheduler and arrangements were made for this. All questions answered. Coding Level of Care Code New Pt Level 5 (53905) Diagnoses Umbilical hernia K42.9
[2024-07-20 09:05] VITALS: BP 154/66; PULSE 66; BMI 31.1
--- OUTSIDE RECORDS SUMMARY | 2024-07-20 09:20 | XMS_ITS | Patient Health Record ---
Author Organization [facility] Address [address] [place] [address] Care Team Providers Care Superintendent House Name Role Phone Po Dodie PRIETO Primary Care Provider Matt Cooper Unavailable [phone] Reason For Referral No Information Medications Medication [...] Problem Status W/U Status Risk Notes Problem 735824525 Encounter for screening for malignant neoplasm of colon (Z12.11) Active confirmed Problem 445140196 History of adenomatous polyp of colon (Z86.010) Active confirmed Problem Diverticular disease of colon (478849106) Diverticulosis of large intestine without perforation or abscess without bleeding (K57.30) Active confirmed Problem Screening for malignant neoplasm of rectum (476610366) Encounter for screening for malignant neoplasm of rectum (Z12.12) Active confirmed Problem Family History of Cancer of Colon (Situation) (756686589) Family history of colon cancer (Z80.0) Active confirmed Problem Esophageal stricture (79170487) Esophageal stricture (K22.2) Active confirmed Problem 610160845 Esophageal spasm (K22.4) Active confirmed Problem 718714155 GERD without esophagitis (K21.9) Active confirmed Problem 38607744 Esophageal dysphagia (R13.10) Active confirmed Plan Of Treatment Pending Test Test Name Order Date Pathology 04/24/2022 Future Test Test Name Order Date COLONOSCOPY 11/19/2011 COLONOSCOPY 07/25/2016 UPPER GI ENDOSCOPY BALLOOON DILATION OF ESOPH 07/06/2020 COLONOSCOPY 02/21/2022 Insurance Providers Payer Name Payer Address Payer Phone Subscriber Number Group Number Insured Name Patient Relationship to Insured Coverage Start Date Coverage End Date [facility] [address] [address] [place] [address] [id number] SHAWNA JONES Self - patient is the [...] in 2002 and 2006 Hyperlipidemia Gout Denies [place],DM,CVA,Lung disease,renal dise ase Pneumonia - 05/2016 Insomnia FATTY LIVER PERIPHERAL NEUROPATHY MILD DIVERTICULOSIS SPLENIC ARTERY ANEURYSM--seeing Dr. Perry , vascular surgeon ? of very mild diverticulitis in 2014 Seasonal allergies Colonoscopy in 01/2017 was negative Esophageal stricture dilated with an 18- 20mm balloon in 07/2020 Surgical History Surgery Date(Month/Year) CCY Appy
== END 2024-07-20 09:12 | disposition home or self-care (01) ==
LOC: HO.HGS 08:52
PROVIDERS: PCP Internal Medicine; Referring Provider Internal Medicine; Visit Provider Surgery
DX: K42.9 Umbilical hernia without obstruction or gangrene (principal)
CPT/HCPCS: 99204

== ENCOUNTER 2024-07-20 08:51 | Outpatient (REF) | payer MEDICARE, SELFPAY ==
--- NOTE | ~2024-07-20 | XR_ITS ---
EXAMINATION: XR KNEE BILATERAL CLINICAL INFORMATION: Chronic knee pain x1 month. No known injury. COMPARISON: None available. TECHNIQUE: AP bilateral standing view of the knees was obtained, as well as lateral and patellofemoral views of both knees.. FINDINGS: RIGHT KNEE: No fracture, dislocation, or suspicious bone lesion. Normal alignment. Mild tricompartmental osteoarthritis, with small marginal osteophytes in all 3 compartments and mild spurring of the tibial spines. Normal patellar alignment without significant patellar tilt. No evidence of joint effusion. No soft tissue abnormalities. LEFT KNEE: No fracture, dislocation, or suspicious bone lesion. Normal alignment. Moderate medial compartment osteoarthrosis. Milder changes in the lateral and patellofemoral compartments. Spurring of the tibial spines. Normal patellar alignment without significant patellar tilt. No evidence of joint effusion. No soft tissue abnormalities. XR/XR Knee Mark 3V IMPRESSION: 1. No acute bony abnormalities in either knee. 2. Bilateral mild osteoarthrosis, with slightly worse changes in the left knee medial compartment. 3. No joint effusion. Electronically signed by: Melvin Craven MD 07/20/2024 02:14 PM EDT
== END 2024-07-20 08:52 | disposition home or self-care (01) ==
LOC: HO.XRAY 08:51
PROVIDERS: Absent Provider Internal Medicine; PCP Internal Medicine; Referring Provider Internal Medicine; Visit Provider Surgery
DX: K42.9 Umbilical hernia without obstruction or gangrene (principal); M25.569 Pain in unspecified knee
CPT/HCPCS: 73562; 99202

== ENCOUNTER → 2024-07-20 09:24 | Outpatient (BNV) | payer MEDICARE, SELFPAY | PROVIDERS: Absent Provider Internal Medicine; PCP Internal Medicine; Referring Provider Internal Medicine; Visit Provider Radiology Diagnostic Radiology | DX: M25.562 Pain in left knee (principal) | CPT/HCPCS: 73562 ==

== ENCOUNTER 2024-08-19 08:19 | Outpatient (REF) | payer MEDICARE, SELFPAY ==
--- OUTSIDE RECORDS SUMMARY | 2024-08-19 08:35 | XMS_ITS | Patient Health Record ---
Author Organization [facility] Address [address] [place] [address] Care Team Providers Care Fruit Cutter Name Role Phone Po Dodie PRIETO Primary Care Provider Matt Cooper Unavailable [phone] Reason For Referral No Information Medications Medication [...] Problem Status W/U Status Risk Notes Problem 479056009 Encounter for screening for malignant neoplasm of colon (Z12.11) Active confirmed Problem 670631733 History of adenomatous polyp of colon (Z86.010) Active confirmed Problem Diverticular disease of colon (129175720) Diverticulosis of large intestine without perforation or abscess without bleeding (K57.30) Active confirmed Problem Screening for malignant neoplasm of rectum (539390635) Encounter for screening for malignant neoplasm of rectum (Z12.12) Active confirmed Problem Family History of Cancer of Colon (Situation) (519664880) Family history of colon cancer (Z80.0) Active confirmed Problem Esophageal stricture (65933072) Esophageal stricture (K22.2) Active confirmed Problem 760182483 Esophageal spasm (K22.4) Active confirmed Problem 852005357 GERD without esophagitis (K21.9) Active confirmed Problem 50653629 Esophageal dysphagia (R13.10) Active confirmed Plan Of Treatment Pending Test Test Name Order Date Pathology 04/24/2022 Future Test Test Name Order Date COLONOSCOPY 11/19/2011 COLONOSCOPY 07/25/2016 UPPER GI ENDOSCOPY BALLOOON DILATION OF ESOPH 07/06/2020 COLONOSCOPY 02/21/2022 Insurance Providers Payer Name Payer Address Payer Phone Subscriber Number Group Number Insured Name Patient Relationship to Insured Coverage Start Date Coverage End Date [facility] [address] [address] [place] [address] [id number] SHAWNA JONES Self - patient is the [...] in 2002 and 2006 Hyperlipidemia Gout Denies [place],DM,CVA,Lung disease,renal dise ase Pneumonia - 05/2016 Insomnia FATTY LIVER PERIPHERAL NEUROPATHY MILD DIVERTICULOSIS SPLENIC ARTERY ANEURYSM--seeing Dr. Perry , vascular surgeon ? of very mild diverticulitis in 2014 Seasonal allergies Colonoscopy in 01/2017 was negative Esophageal stricture dilated with an 18- 20mm balloon in 07/2020 Surgical History Surgery Date(Month/Year) CCY Appy
--- OUTSIDE RECORDS SUMMARY | 2024-08-19 08:35 | XMS_ITS | Patient Health Record ---
Author Organization [facility] Address [address] [facility] [place], [place] [address] Care Team Providers Care Ore Dressing Engineer Name Role Phone Dodie Cazares Primary Care Provider Bekah Westbrook Unavailable [phone] Allergies Allergen (clinical drug ingredient) Drug/Non Drug [...] Date Coverage End Date [employer] Medicare [id number] [address] [address] [place] [address] [id number] Darrius Toussaint Self - patient is the insured Medical (General) History Medical History History ICD Code Back,Hip,and Knee pain Cholesterol Cataracts Gall bladder problems Reflux ( GERD) Measles Surgical History Surgery Date(Month/Year) Gall Bladder Surgery 2010"
== END 2024-08-19 08:20 | disposition home or self-care (01) ==
LOC: HO.SH 08:19
PROVIDERS: Visit Provider Internal Medicine
DX: Z01.118 Encounter for examination of ears and hearing with other abnormal findings (principal); H90.3 Sensorineural hearing loss, bilateral
CPT/HCPCS: 92552; 92556

== ENCOUNTER 2024-09-13 08:52 | Outpatient (REF) | payer MEDICARE, SELFPAY ==
--- NOTE | ~2024-09-13 | CT_ITS ---
CLINICAL HISTORY: I72.8 - Aneurysm of other specified arteries CT angiography abdomen with contrast. 3-D post processing. Comparison: CT/DE/SR - CT ANGIO ABDOMEN - 09/19/22 10:09 EDT Findings: No aortic aneurysm or dissection. Scattered calcific plaque formation is present. There is an 11 mm splenic artery aneurysm without change by my measurements. Major aortic branches are patent. 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 No consolidation or pleural effusion. There are several kidney cysts, Similar to the prior study the liver, spleen, pancreas and adrenal glands are unremarkable. Prior cholecystectomy. Colonic diverticulosis without diverticulitis. Umbilical hernia containing fat. No bowel edema or dilatation. No acute fracture. IMPRESSION: There is an 11 mm splenic artery aneurysm without change by my measurements. This document has been electronically signed by: Sadia Rodriguez MD on 09/13/2024 16:10:08
--- OUTSIDE RECORDS SUMMARY | 2024-09-13 09:03 | XMS_ITS | Patient Health Record ---
Author Organization [facility] Address [address] [facility] [place], [place] [address] Care Team Providers Care Set Up Mechanic Coating Machines Name Role Phone Dodie Cazares Primary Care Provider Bekah Westbrook Unavailable [phone] Allergies Allergen (clinical drug ingredient) Drug/Non Drug [...] Date Coverage End Date [employer] Medicare [id number] [address] [address] [place] [address] [id number] Darrius Toussaint Self - patient is the insured Medical (General) History Medical History History ICD Code Back,Hip,and Knee pain Cholesterol Cataracts Gall bladder problems Reflux ( GERD) Measles Surgical History Surgery Date(Month/Year) Gall Bladder Surgery 2010
[2024-09-13] MEDS: iohexoL 350 MG/ML 100 ML INFUS..BTL 80 ML IV (10:38)
[2024-09-13 14:57] LABS: Creatinine POC 0.7 mg/dL (0.5-1.4); GFR POC > 60
== END 2024-09-13 08:53 | disposition home or self-care (01) ==
LOC: HO.CT 08:52
PROVIDERS: PCP Internal Medicine; Visit Provider Internal Medicine
DX: I72.8 Aneurysm of other specified arteries (principal)
CPT/HCPCS: 74175; 82565; Q9967

== ENCOUNTER → 2024-09-13 08:53 | Outpatient (BNV) | payer MEDICARE, SELFPAY | PROVIDERS: PCP Internal Medicine; Visit Provider Radiology Diagnostic Radiology | DX: I72.8 Aneurysm of other specified arteries (principal) | CPT/HCPCS: 74175 ==

== ENCOUNTER 2024-10-19 08:23 | Outpatient (REF) | payer MEDICARE, SELFPAY ==
--- NOTE | ~2024-10-19 | XR_ITS ---
EXAMINATION: XR KNEE 3 VIEWS LEFT HISTORY: M25.569 - Pain in unspecified knee COMPARISON: Comparison is made with the prior examination dated 07/20/1984. FINDINGS: Standing AP views of both knees and additional lateral and sunrise patellar views of the left knee are submitted. Osseous mineralization is normal. There is no fracture or dislocation. There is moderate narrowing of the medial compartment and mild degenerative change of the patellofemoral compartment. The soft tissues are unremarkable. There is no joint effusion. XR/XR knee LT 3V IMPRESSION: Osteoarthritis of the left knee as described. Electronically signed by: Matt Tim MD 10/19/2024 09:24 AM EDT
--- OUTSIDE RECORDS SUMMARY | 2024-10-19 08:31 | XMS_ITS | Patient Health Record ---
Author Organization [facility] Address [address] [place] [address] Care Team Providers Care Slip Sheeter Name Role Phone Po Dodie PRIETO Primary Care Provider Matt Cooper Unavailable [phone] Reason For Referral No Information Medications Medication [...] Problem Status W/U Status Risk Notes Problem 568835959 Encounter for screening for malignant neoplasm of colon (Z12.11) Active confirmed Problem 630946904 History of adenomatous polyp of colon (Z86.010) Active confirmed Problem Diverticulosis o f large intestine without perforation or abscess without bleeding (K57.30) Active confirmed Problem Screening for malignant neoplasm of rectum (037236871) Encounter for screening for malignant neoplasm of rectum (Z12.12) Active confirmed Problem Family History of Cancer of Colon (Situation) (357974605) Family history of colon cancer (Z80.0) Active confirmed Problem Esophageal stricture (48379578) Esophageal stricture (K22.2) Active confirmed Problem 081646403 Esophageal spasm (K22.4) Active confirmed Problem 195727874 GERD without esophagitis (K21.9) Active confirmed Problem 61731502 Esophageal dysphagia (R13.10) Active confirmed Plan Of Treatment Pending Test Test Name Order Date Pathology 04/24/2022 Future Test Test Name Order Date COLONOSCOPY 11/19/2011 COLONOSCOPY 07/25/2016 UPPER GI ENDOSCOPY BALLOOON DILATION OF ESOPH 07/06/2020 COLONOSCOPY 02/21/2022 Insurance Providers Payer Name Payer Address Payer Phone Subscriber Number Group Number Insured Name Patient Relationship to Insured Coverage Start Date Coverage End Date [facility] [address] [address] [place] [address] [id number] SHAWNA JONES Self - patient is the [...] in 2002 and 2006 Hyperlipidemia Gout Denies [place],DM,CVA,Lung disease,renal dise ase Pneumonia - 05/2016 Insomnia FATTY LIVER PERIPHERAL NEUROPATHY MILD DIVERTICULOSIS SPLENIC ARTERY ANEURYSM--seeing Dr. Perry , vascular surgeon ? of very mild diverticulitis in 2014 Seasonal allergies Colonoscopy in 01/2017 was negative Esophageal stricture dilated with an 18- 20mm balloon in 07/2020 Surgical History Surgery Date(Month/Year) CCY Appy
--- OUTSIDE RECORDS SUMMARY | 2024-10-19 08:31 | XMS_ITS | Patient Health Record ---
Author [facility] Address [address] [facility] [place], [place] [address] Care Team Providers Care Manager Telecom Name Role Phone Dodie Cazares Primary Care Provider Bekah Westbrook Unavailable [phone] Allergies Allergen (clinical drug ingredient) Drug/Non Drug Allergy documented on EMR Reaction Allergy Type Onset Date Status Bee Sting Unknown Allergy Active Reason For Referral No Information Medications Medication SIG (Take, Route, Frequency, Duration) Notes Start Date End Date Status Rosuvastatin Calcium 20 MG 1 tablet Oral ly Once a day; Duration: 30 day(s) Active Fenofibrate 160 MG 1 tablet Orally Once a day; Duration: 30 day(s) Not-Taking Tamsulosin HCl 0.4 MG 1 capsule Orally Once a day; Duration: 30 day(s) Not-Taking Pantoprazole Sodium 40 MG 1 tablet Orall y Once a day; Duration: 30 day(s) Active Gabapentin 300 MG 1 capsule Orally Once a day; Duration: 30 day(s) Active Pramipexole Dihydrochloride 0.5 MG 1 tablet Orally Once a day; Duration: 30 day(s) Active Allopurinol Active MethylPREDNISolone (Rene) Active Ezetimibe 10 MG 1 tablet Orally Once a day; Duration: 30 day(s) Active Social History Tobacco Use: [...] Date Coverage End Date [employer] Medicare [id number] [address] [address] [place] [address] [id number] Darrius Toussaint Self - patient is the insured Medical (General) History Medical History History ICD Code Back,Hip,and Knee pain Cholesterol Cataracts Gall bladder problems Reflux ( GERD) Measles Surgical History Surgery Date(Month/Year) Gall Bladder Surgery 2010
--- OUTSIDE RECORDS SUMMARY | 2024-10-19 08:31 | XMS_ITS | Patient Health Record ---
Author Organization [facility] Address [address] [place] [address] Care Team Providers Care Supervising Producer Name Role Phone Amandeep Mclean Primary Care Provider Marisela Vazquez Unavailable [phone] Reason For Referral No Information Medications Medication SIG (Take, Route, Frequency, Duration) Notes Start Date End Date Status Tussin CF Active Z-pack As directed Active Zetia Active Crestor Active rOPINIRole Active allopurinol Active pantoprazole Active meloxicam Active Problems Problem Type SNOMED Code ICD Code Onset Dates Problem Status W/U Status Risk Notes Problem Hypercholesterolemia (25153795) Hypercholesterolemia NOS (272.4) Active confirmed Problem GERD [Gastroesophageal reflux disease] (530.81) Active confirmed Problem Gout (00338604) Gout NOS (274.9) Active confirm ed Problem Restless legs syndrome (97799874) Restless leg syndrome (333.99) Active confirmed Problem Rheumatoid arthritis (00977130) Rheumatoid arthritis (714.0) Active confirmed Problem Low back pain (676791016) Low back pain (724.2) Active confirmed Plan Of Treatment No Information Insurance Providers Payer Name Payer Address Payer Phone Subscriber Number Group Number Insured Name Patient Relationship to Insured Coverage Start Date Coverage End Date Medicare [address] [address] [place] [address] [id number] Darrius Toussaint Self - patient is the insured Medical (General) History Medical History History ICD Code Esophageal reflux Gout Hypercholestrolemia Low Back Pain Rheumatoid Arthritis Restless leg syndrome 333.99 Surgical History Surgery Date(Month/Year) Cholecystectomy Appendectomy
[2024-10-19 09:48] LABS: Alanine Aminotransferase 46 U/L (0-40); Albumin Level 4.2 g/dL (3.5-5.0); Alkaline Phosphatase 59 U/L (39-117); Anion Gap 11 (12-20); Aspartate Amino Transferase 29 U/L (5-37); Blood Urea Nitrogen 18 mg/dL (9-16); Calcium 9.1 mg/dL (8.4-10.2); Carbon Dioxide 26 mmol/L (22-29); Chloride 109 mmol/L (96-108); Cholesterol 274 mg/dL (<200); Estimated Glomerular Filt Rate > 60; HDL Cholesterol 38 mg/dL (>40); Potassium 4.4 mmol/L (3.3-5.1); Sodium 142 mmol/L (135-145); Total Protein 7.0 g/dL (6.5-8.0); Triglycerides 420 mg/dL (<150)
[2024-10-19 11:12] LABS: Microalbum/Creatinine Ratio Ur 11.8 ug/mg cr (<30)
== END 2024-10-19 08:24 | disposition home or self-care (01) ==
LOC: HO.HOSX 08:23
PROVIDERS: Absent Provider Internal Medicine; PCP Internal Medicine; Visit Provider Physician Assistant
DX: M17.12 Unilateral primary osteoarthritis, left knee (principal); M25.562 Pain in left knee; E11.65 Type 2 diabetes mellitus with hyperglycemia; K57.81 Diverticulitis of intestine, part unspecified, with perforation and abscess with bleeding; K75.81 Nonalcoholic steatohepatitis (NASH); E78.00 Pure hypercholesterolemia, unspecified
CPT/HCPCS: 36415; 73562; 80053; 80061; 82043; 82570; 99212

== ENCOUNTER 2024-10-19 09:07 | Outpatient (AMB) | payer MEDICARE, SELFPAY ==
--- NOTE | 2024-10-19 09:16 | MHC.OFFVIS ---
Vital Signs 10/19/24 09:20 Height 6 ft Weight 229 lb BMI 31.1 Intake Visit Reasons: New prob-LT knee pain Intake Note: Darrius is a 79 year old male who presents today for a new problem visit with complaints of Left Knee Pain. Hx of gout. He was seen with his PCP, Dr. Cazares, who prescribed Meloxicam and has utilized a brace with mild relief. He states ongoing pain for many months. He mentions that his knee was drained at the ED back in 08/16/24 which helped. Patient states that his knee feel better, however when he is sitting on a high bench, and sitting in his car casues him pain. Patient notices that his pain is on the anterior aspect of the knee. Allergies bee venom protein (honey bee) Allergy (Severe, Verified 07/20/24 09:03) Anaphylaxis HPI HPI New prob-LT knee pain: Details: Mr. Toussaint is a 79-year-old male who presents to the office today for evaluation of left knee pain. He states that back in August he was experiencing an increase in pain and swelling in the left knee. The amount of swelling that was in the knee was causing difficulties with range of motion. He presented to the ED on 08/16/2024 in which he had an aspiration of the left knee. He does have a history of gout and therefore the fluid was sent for analysis. Patient states that the analysis was negative for any infectious or gouty pathology. After the aspiration over the next few days to weeks the patient's pain improved and he is back at baseline. Today he is not experiencing any pain. However, when the patient does have pain is usually when sitting in a car for long periods of time sitting on a high chair such as a bar stool. He reports that his pain is located over the anterior aspect of the knee. [facility] Medical History (Updated 10/19/24 @ 11:31 by Diana Dunbar PA-C) Impaired glucose tolerance GERD (gastroesophageal reflux disease) Esophageal stricture Diverticulitis Peripheral neuropathy H/O: pneumonia Tubular adenoma Screening for prostate cancer Olecranon bursitis, right elbow Elbow pain, right Onychomycosis Adult general medical exam Screening for colon cancer Dizziness Impacted cerumen of both ears Status post administration of all doses of COVID-19 vaccine series Anxiety Vitamin D deficiency Fatty liver Insomnia Restless leg syndrome Gout Umbilical hernia Left inguinal hernia Hypercholesterolemia BPH (benign prostatic hyperplasia) Erectile dysfunction Splenic artery aneurysm Peroneal tendonitis of right lower extremity Surgical History (Updated 07/20/24 @ 09:37 by Jose Lisa MD) H/O esophagogastroduodenoscopy History of colonoscopy History of surgery History of laparoscopic cholecystectomy History of cataract surgery Status post appendectomy Family History Father CVD (cardiovascular disease) Heart problem Mother Pneumonia Brother CVD (cardiovascular disease) Prostate cancer Sister Ovarian cancer Sister Cancer Son In good health Daughter In good health Social History Housing: House Alcohol intake: current Alcohol intake frequency: a few times a month Alcohol type: beer Comment: 2 beers a day Patient Tobacco Use Status: Never used Tobacco Tobacco use type: Cigarette e-Cigarette/Vaping Use: Never Used Second Hand Smoke Exposure: No service: Yes 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al status: retired 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 No ecchymosis, erythema or joint effusion. Range of motion is 0-120 degrees. Crepitus felt with range of motion. No tenderness to palpation medial and lateral joint line. NVI. Assessment & Plan Assessment & Plan (1) Osteoarthritis of left knee: Code(s): M17.12 - Unilateral primary osteoarthritis, left knee Category: Medical Plan Mr. Toussaint is a 79-year-old male who presents to the office today for evaluation of left knee pain. He states that back in August he was experiencing an increase in pain and swelling in the left knee. The amount of swelling that was in the knee was causing difficulties with range of motion. He presented to the ED on 08/16/2024 in which he had an aspiration of the left knee. He does have a history of gout and therefore the fluid was sent for analysis. Patient states that the analysis was negative for any infectious or gouty pathology. After the aspiration over the next few days to weeks the patient's pain improved and he is back at baseline. Today he is not experiencing any pain. However, when the patient does have pain is usually when sitting in a car for long periods of time sitting on a high chair such as a bar stool. He reports that his pain is located over the anterior aspect of the knee. While in the office today, the patient is not experiencing any symptoms at this time. X-rays were obtained while in the office today and were reviewed by me, Diana Dunbar PA-C, and reveal osteoarthritis of the left knee. I discussed treatment plans in the future should the patient have another arthritic flare-up. We discussed cortisone injection but at this time as the patient is not experiencing pain we deferred. Additionally we also contemplate of physical therapy however the patient again is not having any pain and has great range of motion. He will follow up PRN, sooner if needed. Orders: Orders XR knee LT 3V Today M25.569 - Pain in unspecified knee Coding Level of Care Code Est Pt Level 3 (22868) Diagnoses Osteoarthritis of left knee M17.12
[2024-10-19 09:20] VITALS: BMI 31.1
== END 2024-10-19 10:09 | disposition home or self-care (01) ==
LOC: HO.HOS 09:07
PROVIDERS: PCP Internal Medicine; Visit Provider Physician Assistant
DX: M17.12 Unilateral primary osteoarthritis, left knee (principal)
CPT/HCPCS: 99213

== ENCOUNTER → 2024-10-19 09:09 | Outpatient (BNV) | payer MEDICARE, SELFPAY | PROVIDERS: Absent Provider Internal Medicine; PCP Internal Medicine; Visit Provider Radiology Diagnostic Radiology | DX: M17.12 Unilateral primary osteoarthritis, left knee (principal) | CPT/HCPCS: 73562 ==

== ENCOUNTER 2024-10-29 08:12 | Outpatient (AMB) | payer MEDICARE, SELFPAY ==
--- OUTSIDE RECORDS SUMMARY | 2024-10-29 08:16 | XMS_ITS | Patient Health Record ---
Author Organization [facility] Urgent Care - So [facility] Address [address] [place] [address] Care Team Providers Care Application Coordinator Name Role Phone Amandeep Mclean Primary Care Provider Marisela Vazquez Unavailable [phone] Reason For Referral No Information Medications Medication SIG (Take, Route, Frequency, Duration) Notes Start Date End Date Status Tussin CF Active Z-pack As directed Active Zetia Active Crestor Active rOPINIRole Active allopurinol Active pantoprazole Active meloxicam Active Problems Problem Type SNOMED Code ICD Code Onset Dates Problem Status W/U Status Risk Notes Problem Hypercholesterolemia (78134504) Hypercholesterolemia NOS (272.4) Active confirmed Problem Gastroesophageal reflux disease (disorder) (450675486) GERD [Gastroesophageal reflux disease] (530.81) Active confirmed Problem Gout (47777150) Gout NOS (274.9) Active confirm ed Problem Restless legs syndrome (99857298) Restless leg syndrome (333.99) Active confirmed Problem Rheumatoid arthritis (56981188) Rheumatoid arthritis (714.0) Active confirmed Problem Low back pain (818137400) Low back pain (724.2) Active confirmed Plan Of Treatment No Information Insurance Providers Payer Name Payer Address Payer Phone Subscriber Number Group Number Insured Name Patient Relationship to Insured Coverage Start Date Coverage End Date Medicare [address] [address] [place] [phone] [id number] Darrius Toussaint Self - patient is the insured Medical (General) History Medical History History ICD Code Esophageal reflux Gout Hypercholestrolemia Low Back Pain Rheumatoid Arthritis Restless leg syndrome 333.99 Surgical History Surgery Date(Month/Year) Cholecystectomy Appendectomy
--- OUTSIDE RECORDS SUMMARY | 2024-10-29 08:16 | XMS_ITS | Patient Health Record ---
Author Organization [facility] Address [address] [place] [address] Care Team Providers Care Police Patrol Officer Name Role Phone Po Dodie PRIETO Primary Care Provider Matt Cooper Unavailable [phone] Reason For Referral No Information Medications Medication [...] Problem Status W/U Status Risk Notes Problem 893392608 Encounter for screening for malignant neoplasm of colon (Z12.11) Active confirmed Problem 003113898 History of adenomatous polyp of colon (Z86.010) Active confirmed Problem Diverticular disease of colon (910765201) Diverticulosis of large intestine without perforation or abscess without bleeding (K57.30) Active confirmed Problem Screening for malignant neoplasm of rectum (143127737) Encounter for screening for malignant neoplasm of rectum (Z12.12) Active confirmed Problem Family History of Cancer of Colon (Situation) (254502379) Family history of colon cancer (Z80.0) Active confirmed Problem Esophageal stricture (50167911) Esophageal stricture (K22.2) Active confirmed Problem 511316712 Esophageal spasm (K22.4) Active confirmed Problem 211805387 GERD without esophagitis (K21.9) Active confirmed Problem 60262421 Esophageal dysphagia (R13.10) Active confirmed Plan Of Treatment Pending Test Test Name Order Date Pathology 04/24/2022 Future Test Test Name Order Date COLONOSCOPY 11/19/2011 COLONOSCOPY 07/25/2016 UPPER GI ENDOSCOPY BALLOOON DILATION OF ESOPH 07/06/2020 COLONOSCOPY 02/21/2022 Insurance Providers Payer Name Payer Address Payer Phone Subscriber Number Group Number Insured Name Patient Relationship to Insured Coverage Start Date Coverage End Date [facility] [address] [address] [place] [address] [id number] SHAWNA JONES Self - patient is the [...] in 2002 and 2006 Hyperlipidemia Gout Denies SD,DM,CVA,Lung disease,renal dise ase Pneumonia - 05/2016 Insomnia FATTY LIVER PERIPHERAL NEUROPATHY MILD DIVERTICULOSIS SPLENIC ARTERY ANEURYSM--seeing Dr. Perry , vascular surgeon ? of very mild diverticulitis in 2014 Seasonal allergies Colonoscopy in 01/2017 was negative Esophageal stricture dilated with an 18- 20mm balloon in 07/2020 Surgical History Surgery Date(Month/Year) CCY Appy
--- OUTSIDE RECORDS SUMMARY | 2024-10-29 08:16 | XMS_ITS | Patient Health Record ---
[facility] Address [address] [place], [place] [address] Care Team Providers Care Pillow Cleaner Name Role Phone Dodie Cazares Primary Care Provider Bekah Westbrook Unavailable [phone] Allergies Allergen (clinical drug ingredient) Drug/Non Drug [...] Date Coverage End Date [employer] Medicare [id number] [address] [address] [place] [phone] [id number] Darrius Toussaint Self - patient is the insured Medical (General) History Medical History History ICD Code Back,Hip,and Knee pain Cholesterol Cataracts Gall bladder problems Reflux ( GERD) Measles Surgical History Surgery Date(Month/Year) Gall Bladder Surgery 2010
--- NOTE | 2024-10-29 08:22 | MHC.PC.OV ---
Vital Signs 10/29/24 08:23 Height 6 ft Weight 219 lb 2 oz BMI 29.7 BP 110/60 Blood Pressure Location Lt brachial Position Sitting Pulse 52 Pulse Source Pulse Oximeter Temp 97.3 F Temp Source Temporal Artery Scan Pulse Oximetry (%) 94 Oxygen Delivery Method Room Air Intake Visit Reasons: /DM Intake Note: Patient is here to follow up on DM. Lube Attendant Required: No Collar Setter Overlock: Not Required per policy Accompanied by: Self / Same As Patient Allergies bee venom protein (honey bee) Allergy (Severe, Verified 10/29/24 08:23) Anaphylaxis Medication List - Last Reconciled 10/29/24 by Dodie Cazares MD allopurinol 300 mg PO DAILY epinephrine 0.3 mL IM Q10M PRN ezetimibe 10 mg PO DAILY fenofibrate 160 mg PO DAILY fluticasone propionate 50 mcg/actuation (Flonase Allergy Relief) 1 spray intranasal DAILY gabapentin (Neurontin) 600 mg PO BEDTIME meloxicam 15 mg PO DAILY pantoprazole (Protonix) 40 mg PO DAILY pramipexole (Mirapex) 0.5 mg PO TID rosuvastatin (Crestor) 20 mg PO DAILY tadalafil 10 mg PO DAILY 90 days tadalafil 20 mg PO ONCE PRN 30 days zolpidem (Ambien) 5 mg PO BEDTIME PRN Tobacco use date assessed: 10/29/24 Fall risk assessment: No Falls in past year Last assessed Fall Risk: 10/29/24 Dental Screening Dental Screen Date: 07/12/24 [facility] Medical History (Updated 10/19/24 @ 11:31 by Diana Dunbar PA-C) Impaired glucose tolerance GERD (gastroesophageal reflux disease) Esophageal stricture Diverticulitis Peripheral neuropathy H/O: pneumonia Tubular adenoma Screening for prostate cancer Olecranon bursitis, right elbow Elbow pain, right Onychomycosis Adult general medical exam Screening for colon cancer Dizziness Impacted cerumen of both ears Status post administration of all doses of COVID-19 vaccine series Anxiety Vitamin D deficiency Fatty liver Insomnia Restless leg syndrome Gout Umbilical hernia Left inguinal hernia Hypercholesterolemia BPH (benign prostatic hyperplasia) Erectile dysfunction Splenic artery aneurysm Peroneal tendonitis of right lower extremity Surgical History H/O esophagogastroduodenoscopy History of colonoscopy History of surgery History of laparoscopic cholecystectomy History of cataract surgery Status post appendectomy Family History (Updated 10/29/24 @ 08:30 by MELANI Liz) Father CVD (cardiovascular disease) Heart problem Mother Pneumonia Brother CVD (cardiovascular disease) Prostate cancer Sister Ovarian cancer Sister Cancer Son In good health Daughter In good health Social History Housing: House Alcohol intake: current Alcohol intake frequency: a few times a month Alcohol type: beer Comment: 2 beers a day Patient Tobacco Use Status: Never used Tobacco Tobacco use type: Cigarette e-Cigarette/Vaping Use: Never Used Second Hand Smoke Exposure: No service: Yes 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al status: retired 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 1. Little interest or pleasure in doing things: not at all 2. Feeling down, depressed, or hopeless: not at all 3. Trouble falling or staying asleep, or sleeping too much: not at all 4. Feeling tired or having little energy: not at all 5. Poor appetite or overeating: not at all 6. Feeling bad about yourself - or that you are a failure or have let yourself or your family down: not at all 7. Trouble concentrating on things, such as reading the newspaper or watching television: not at all 8. Moving or speaking so slowly that other people could have noticed. Or the opposite - being so fidgety or restless that you have been moving around a lot more than usual: not at all 9. Thoughts that you would be better off or of hurting yourself in some way: not at all Total score: 0 Depression Screening Interpretation: Negative Depression Screening Done: Yes Source: Developed by Drs. Matt Mcqueen, Genny Bailey, Michele Shah and colleagues, with an educational micaela from [employer]. Thrive Questionnaire Date Thrive assessed: 10/23/24 I am a: Patient What is your living situation today?: I have a steady place to live Within the past 12 months, did the food you bought not last and you didn't have the money to get more?: Never true Within the past 12 months, did you worry whether your food would run out before you got money to buy more?: Never true Do you have trouble paying for medicines?: No Do you have trouble getting transportation to medical appointments?: No Do you have trouble paying your heating and electricity bill?: No Do you have trouble taking care of your child, family member or friend?: No Do you have trouble with day-to-day activities such as bathing, preparing meals, shopping, managing finances, etc.?: No Are you currently unemployed and looking for a job?: No Are you interested in more education?: No Please select the resources that you would like help with: None Currently or been in a relationship where the following occur: No concerns reported THRIVE Score: 0 AUDIT C Alcohol Use Questionnaire (AUDIT-C) 1. How often do you have a drink containing alcohol?: 2-4 times a month 2. How many drinks containing alcohol do you have on a typical day when you are drinking?: 1 or 2 3. How often do you have six or more drinks on one occasion?: Never Total Score: 2 STEPHANIE-7 AMB Questionnaire STEPHANIE-7 Date STEPHANIE - 7 assessed: 10/29/24 Feeling nervous, anxious, or on edge: 0 = Not at all Not being able to stop or control worryin = Not at all Worrying too much about different things: 0 = Not at all Trouble relaxin = Not at all Being so restless that it is hard to sit still: 0 = Not at all Becoming easily annoyed or irritable: 0 = Not at all Feeling afraid as if something awful might happen: 0 = Not at all Total STEPHANIE-7 score (0-4 normal; 5-9 mild; 10-14 moderate; 15-21 severe): 0 Source: Developed by Drs. Matt Mcqueen, Genny Bailey, Michele Shah and colleagues, with an educational micaela from [employer]. Physical exam (Primary Care) Vital Signs: Last Vital Signs Temp 97.3 F 10/29/24 08:23 Pulse 52 10/29/24 08:23 BP 110/60 10/29/24 08:23 Pulse Ox 94 10/29/24 08:23 Oxygen Delivery Method Room Air 10/29/24 08:23 Care Plan Goal for BP management: Impacted cerumen bilateral BMI result Body Mass Index 29.7 Tobacco/Smoking Status: Tobacco use Status Tobacco use date assessed 10/29/24 10/29/24 08:29 Patient Tobacco Use Status Never used Tobacco 10/29/24 08:29 Tobacco use type Cigarette 10/29/24 08:29 e-Cigarette/Vaping Use Never Used 10/29/24 08:29 PHQ-9: PHQ-9 Score PHQ-9: Total score 0 10/29/24 08:40 Depression Screening Interpretation: Negative Thrive Assessment: Date of Thrive Assessment Date Thrive assessed 10/23/24 10/29/24 08:29 Currently or been in a relationship where the following occur: No concerns reported Const General: alert; No acute distress Eyes Conjunctivae: conjunctivae normal Resp Auscultation: clear to auscultation bilaterally Cardio Rate: regular rate Rhythm: regular rhythm GI Inspection: Yes normal to inspection Extrem General: Yes normal to inspection and No edema Office Procedures Cerumen Removal From which ear canal was the cerumen removed: bilateral Removal: irrigation, otoscope w/curette, cerumen loop/spoon and other Notes: patient tolerated procedure well, no complications and ear canal clear [id number] Irrigation/Lavage Results AMB Hemoglobin A1c AMB Hemoglobin A1c 5.9 % Last Edit by MELANI Liz on 10/29/24 08:34 Results Reviewed Results Reviewed: Laboratory Last Values Hgb A1c (Clinic) 5.9 % (4.0-6.0) 10/29/24 08:20 Coding Level of Care Code Est Pt Level 4 (65573) Complex EM visit Add On G2211 Diagnoses Type 2 diabetes mellitus with hyperglycemia E11.65 Hypercholesterolemia E78.00 Splenic artery aneurysm I72.8 Gastroesophageal reflux disease without esophagitis K21.9 Esophagitis presence: without esophagitis MCGRATH (nonalcoholic steatohepatitis) K75.81 Umbilical hernia K42.9 Benign prostatic hyperplasia with urinary frequency N40.1; R35.0 Lower urinary tract symptom detail: urinary frequency Lower urinary tract symptom presence: symptoms present Osteoarthritis of left knee M17.12 Impacted cerumen of both ears H61.23 CPT Codes Office Procedure - CPT: 21802-[id number] Irrigation/Lavage ([id number]) Assessment & Plan Assessment & Plan (1) Type 2 diabetes mellitus with hyperglycemia: Comment: Dr. Cisneros Code(s): E11.65 - Type 2 diabetes mellitus with hyperglycemia Category: Medical Plan: Decrease the amount of carbohydrate intake, pasta, bread, rice and potatoes are all sugar and that is aside from all the sweet stuff, remember that fruits are good but they are Sweet also. Hemoglobin A1c goal of less than 7.0. Patient is controlled diet only (2) Hypercholesterolemia: Code(s): E78.00 - Pure hypercholesterolemia, unspecified Category: Medical Plan: Avoid fried foods, chicken skin, eggs, butter margarine, pastries and meat. Be it pork or beef they have a lot of cholesterol LDL goal of less than 100 and triglyceride of less than 150 patient on Zetia fenofibrate and rosuvastatin (3) Splenic artery aneurysm: Comment: September 2017, October 2018 8 mm stable. April 2021 1 cm, 9 mm August 2022- retest 2-3 years September 2024 11 cm no change Code(s): I72.8 - Aneurysm of other specified arteries Category: Medical Plan: Recent CT scan reveals no change 11 mm (4) GERD (gastroesophageal reflux disease): Code(s): K21.9 - Gastro-esophageal reflux disease without esophagitis Category: Medical Qualifiers: Esophagitis presence: without esophagitis Qualified Code(s): K21.9 - Gastro-esophageal reflux disease without esophagitis Plan: Avoid the foods that causes that usually spicy foods, tomato products, juices, coffee, soda and foods that your sensitive to. After eating do not lie down, allow 3-4 hours before in lie down. And keep the head of bed above 30 degrees to avoid the acid from going up. (5) MCGRATH (nonalcoholic steatohepatitis): Code(s): K75.81 - Nonalcoholic steatohepatitis (MCGRATH) Category: Medical Plan: Low-fat diet and exercise noted 10 lb weight loss (6) Umbilical hernia: Comment: w/repair 2010 Code(s): K42.9 - Umbilical hernia without obstruction or gangrene Category: Medical Plan: Patient has seen the surgeon and planned repair to be done. (7) BPH (benign prostatic hyperplasia): Comment: Flomax Code(s): N40.0 - Benign prostatic hyperplasia without lower urinary tract symptoms Category: Medical Qualifiers: Lower urinary tract symptom detail: urinary frequency Lower urinary tract symptom presence: symptoms present Qualified Code(s): N40.1 - Benign prostatic hyperplasia with lower urinary tract symptoms; R35.0 - Frequency of micturition Plan: On tadalafil (8) Osteoarthritis of left knee: Code(s): M17.12 - Unilateral primary osteoarthritis, left knee Category: Medical Plan: Patient has seen Orthopedics and presently conservative management (9) Impacted cerumen of both ears: Code(s): H61.23 - Impacted cerumen, bilateral Category: Medical Plan: irrigation and scoop used TM intact Plan History of Present Illness The patient is a 79-year-old male presenting for a follow-up visit. He has a history of diabetes mellitus, which is currently managed with diet control, and his recent hemoglobin A1c was 5.9%. His blood sugar was recorded at 129 mg/dL during his last blood work in October 2024. The patient also has benign prostatic hyperplasia and hypercholesterolemia. His cholesterol levels are elevated, with a total cholesterol of 274 mg/dL and triglycerides at 420 mg/dL, which have been a concern due to the risk of pancreatitis. He is on medication including fenofibrate and rosuvastatin to manage his lipid levels. The patient has a history of osteoarthritis in the left knee, which was confirmed by an X-ray showing mild osteoarthritis. He has been following conservative management for this condition. He has a splenic artery aneurysm, which was last measured at 11 mm with no change in size. An abdominal CT scan was performed in September 13 to monitor this condition. The patient has an umbilical hernia, which was repaired in 2010, and he is planning for another repair after the . He has a history of fatty liver, with mildly elevated liver enzymes noted in recent tests. The patient reports ear wax accumulation, which he manages with ear drops and flushing. Health Maintenance - Colonoscopy last performed in 2022 - Abdominal CT scan for splenic artery aneurysm monitoring - Blood work in October 2024 showing hemoglobin A1c of 5.9% - Vaccinations up to date, including shingles vaccine Social History - Enjoys having a beer occasionally - Plans to have umbilical hernia repair after the golf season Review of Systems - Endocrine: Reports stable blood sugar levels, denies symptoms of hypoglycemia - Musculoskeletal: Reports left knee pain, denies current severe pain - Gastrointestinal: Reports history of fatty liver, denies current abdominal pain - Cardiovascular: Denies chest pain or palpitations - ENT: Reports ear wax accumulation, denies hearing loss Physical Exam Results - Labs: Hemoglobin A1c 5.9%, blood sugar 129 mg/dL, elevated triglycerides at 420 mg/dL - Imaging: Abdominal CT scan showing 11 mm splenic artery aneurysm, no change in size - Imaging: X-ray showing mild osteoarthritis in the left knee Plan The patient's diabetes mellitus is well-controlled with diet, and his hemoglobin A1c is at a satisfactory level of 5.9%. He is advised to continue with his current dietary regimen and monitor his blood sugar levels regularly. For hypercholesterolemia, the patient is on fenofibrate and rosuvastatin to manage his lipid levels. He is advised to adhere to his medication regimen and reduce alcohol intake to help manage his elevated triglycerides, which pose a risk for pancreatitis. A follow-up blood test is planned in three months to reassess his lipid profile. The patient is managing his osteoarthritis with conservative measures and is advised to continue this approach. He should monitor for any increase in symptoms and follow up with orthopedics as needed. The splenic artery aneurysm remains stable, and no immediate intervention is required. Regular monitoring with imaging is recommended to ensure no changes in size. The patient plans to have his umbilical hernia repaired after the gol season, and he should follow up with his surgeon to schedule the procedure. For his fatty liver, the patient is advised to maintain a healthy diet and monitor liver function tests periodically. The patient should continue managing ear wax accumulation with regular cleaning and follow up if symptoms persist. Patient was informed and verbally consented to the use of an ambient scribe for clinic note documentation during this visit. Discussion Notes During the visit, I discussed the importance of maintaining a healthy diet and regular monitoring of blood sugar levels with the patient to manage his diabetes mellitus effectively. We reviewed his lipid profile, emphasizing the need to adhere to his medication regimen and reduce alcohol intake to manage his elevated triglycerides and prevent pancreatitis. I advised a follow-up blood test in three months to reassess his lipid levels. We also discussed the conservative management of his osteoarthritis and the stability of his splenic artery aneurysm, which requires regular monitoring. The patient plans to have his umbilical hernia repaired after the golf season, and I recommended following up with his surgeon to schedule the procedure. I advised him to maintain a healthy diet for his fatty liver and to manage ear wax accumulation with regular cleaning. Patient Instructions - Continue with your current diet to manage diabetes and monitor blood sugar levels regularly. - Take your cholesterol medications as prescribed and limit alcohol intake. - Schedule a follow-up blood test in three months to check your lipid levels. - Continue conservative management for knee osteoarthritis and follow up with orthopedics if symptoms worsen. - Plan for umbilical hernia repair after the golf season and coordinate with your surgeon. - Maintain a healthy diet to support liver health and monitor liver function tests. - Manage ear wax with regular cleaning and seek help if it persists. Orders: Orders AMB Hemoglobin A1c Today E11.65 - Type 2 diabetes mellitus with hyperglycemia
[2024-10-29 08:23] VITALS: BP 110/60; PULSE 52; TEMP 36.3; O2SAT 94; BMI 29.7
== END 2024-10-29 09:02 | disposition home or self-care (01) ==
LOC: HO.HMCH 08:12
PROVIDERS: PCP Internal Medicine; Visit Provider Internal Medicine
DX: E11.65 Type 2 diabetes mellitus with hyperglycemia (principal); E78.00 Pure hypercholesterolemia, unspecified; I72.8 Aneurysm of other specified arteries; K21.9 Gastro-esophageal reflux disease without esophagitis; K75.81 Nonalcoholic steatohepatitis (NASH); K42.9 Umbilical hernia without obstruction or gangrene; N40.1 Benign prostatic hyperplasia with lower urinary tract symptoms; R35.0 Frequency of micturition; M17.12 Unilateral primary osteoarthritis, left knee; H61.23 Impacted cerumen, bilateral

== ENCOUNTER → 2024-10-29 08:12 | Outpatient (BNVA) | payer MEDICARE, SELFPAY | PROVIDERS: PCP Internal Medicine; Visit Provider Internal Medicine | DX: E11.65 Type 2 diabetes mellitus with hyperglycemia (principal); E78.00 Pure hypercholesterolemia, unspecified; I72.8 Aneurysm of other specified arteries; K21.9 Gastro-esophageal reflux disease without esophagitis; K75.81 Nonalcoholic steatohepatitis (NASH); K42.9 Umbilical hernia without obstruction or gangrene; N40.1 Benign prostatic hyperplasia with lower urinary tract symptoms; R35.0 Frequency of micturition; M17.12 Unilateral primary osteoarthritis, left knee; H61.23 Impacted cerumen, bilateral | CPT/HCPCS: 69210; 83036; 99212 ==

== ENCOUNTER 2025-01-27 09:07 | Outpatient (AMB) | payer MEDICARE, SELFPAY ==
--- NOTE | 2025-01-27 09:16 | A.OFFVIS_ITS ---
Intake Visit Reasons: 6 month f/u Allergies bee venom protein (honey bee) Allergy (Severe, Verified 01/27/25 09:19) Anaphylaxis Medication List - Last Reconciled 01/27/25 by Mariam Jaquez CNP allopurinol 300 mg PO DAILY epinephrine 0.3 mL IM Q10M PRN ezetimibe 10 mg PO DAILY fenofibrate 160 mg PO DAILY fluticasone propionate 50 mcg/actuation (Flonase Allergy Relief) 1 spray intranasal DAILY gabapentin (Neurontin) 600 mg PO BEDTIME meloxicam 15 mg PO DAILY pantoprazole (Protonix) 40 mg PO DAILY pramipexole (Mirapex) 0.5 mg orally 1 tablet in the evening and 2 tablets at bedtime; rosuvastatin (Crestor) 20 mg PO DAILY tadalafil 10 mg PO DAILY 90 days tadalafil 20 mg PO ONCE PRN 30 days zolpidem (Ambien) 5 mg PO BEDTIME PRN HPI Comments Details: 79-year-old man with severe RLS. He was doing okay. RLS symptoms were generally well-controlled with medications, but could have some nights where symptoms were worse without specific trigger. Medications sometimes took a while to work.?He was able to sleep through the night. [facility] Medical History (Updated 01/27/25 @ 09:17 by Mariam Jaquez CNP) Impaired glucose tolerance GERD (gastroesophageal reflux disease) Esophageal stricture Diverticulitis Peripheral neuropathy H/O: pneumonia Tubular adenoma Screening for prostate cancer Olecranon bursitis, right elbow Elbow pain, right Onychomycosis Adult general medical exam Screening for colon cancer Dizziness Impacted cerumen of both ears Status post administration of all doses of COVID-19 vaccine series Anxiety Vitamin D deficiency Fatty liver Insomnia Restless leg syndrome Gout Umbilical hernia Left inguinal hernia Hypercholesterolemia BPH (benign prostatic hyperplasia) Erectile dysfunction Splenic artery aneurysm Peroneal tendonitis of right lower extremity Surgical History H/O esophagogastroduodenoscopy History of colonoscopy History of surgery History of laparoscopic cholecystectomy History of cataract surgery Status post appendectomy Family History (Updated 10/29/24 @ 08:30 by MELANI Liz) Father CVD (cardiovascular disease) Heart problem Mother Pneumonia Brother CVD (cardiovascular disease) Prostate cancer Sister Ovarian cancer Sister Cancer Son In good health Daughter In good health Social History Housing: House Alcohol intake: current Alcohol intake frequency: a few times a month Alcohol type: beer Comment: 2 beers a day Patient Tobacco Use Status: Never used Tobacco Tobacco use type: Cigarette e-Cigarette/Vaping Use: Never Used Second Hand Smoke Exposure: No service: Yes 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al status: retired 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 Cognitive needs: No Hearing needs: No Vision needs: Yes Review of Systems Const Denies chills, Denies daytime sleepiness, Denies difficulty sleeping, Denies fatigue, Denies fever(s), Denies frequent falls, Denies headache(s), Denies increased appetite, Denies poor appetite, Denies snoring, Denies weakness, Denies weight gain and Denies weight loss Eyes Denies loss of vision ENT Denies vertigo, Denies dizziness and Denies headache(s) Card Denies chest pain at rest, Denies chest pain with activity, Denies syncope, Denies leg edema and Denies palpitations Resp Denies snoring GI Denies constipation, Denies heartburn, Denies diarrhea and Denies nausea Denies urinary frequency, Denies urinary incontinence and Denies urinary urgency Musc Denies abnormal gait, Denies numbness and Denies tingling Skin/Breast Denies dry skin and Denies rash Neuro Denies abnormal gait, Denies vertigo, Denies dizziness, Denies syncope, Denies frequent falls, Denies headache(s), Denies lack of coordination, Denies loss of vision, Denies memory loss, Denies numbness, Reports restless legs, Denies seizure-like activity, Denies tingling, Denies paresthesias, Denies tremor(s) and Denies weakness Psych Denies anxiety, Denies depression, Denies auditory hallucinations, Denies memory loss, Denies visual hallucinations and Denies suicidal ideation Endo Denies fatigue and Denies palpitations Physical Exam Const Other: General Appearance:? normal, in no acute distress. Skin:? no rashes, no significant birthmarks. Heart:? S1, S2 normal, no murmurs. Lungs:? clear anteriorly and posteriorly. Extremities:? no edema. Psych:? alert, oriented, cognitive function intact, cooperative with exam. Neuro Other: Mental Status:?Normal attention, orientation, memory and affect.? Cranial Nerves:?Pupils are equal, round and reactive to light. External occular muscles are intact. Visual ricardo are full. Face is symmetrical. Facial sensations are normal. Tongue is midline. Palate elevates symmetrically. Shoulder shrugging is normal. Hearing to bedside conversation is normal. Coordination:?No ataxia,?no titubation.? Gait Exam: Within normal limits. Cerebellar Signs:?[id number] is okay. Extrapyramidal System:?No tremor, rigidity with normal facial expressions.? Pronator Drift:?Not present.? Involuntary Movements:?No tremors seen.? Speech:?Normal.? Results Reviewed Results Reviewed: MRA brain and neck in [place] in May 2023: WNL (reported) NCV/EMG LE DISTAL TIBIAL NEUROPATHY ACORSS THE TARSAL TUNNEL. ABSENT LEFT TIBIAL H SUGGESTIVE OF CHRONIC RADICULOPATHY, THOUGH NO ACUTE CHANGES WERE NOTED. Assessment & Plan Assessment & Plan (1) Restless leg syndrome: Code(s): G25.81 - Restless legs syndrome Category: Medical Plan: Continue pramipexole 0.5mg 1 tablet in the evening and 2 tablets at bedtime. Continue gabapentin 300mg 1-2 capsules at night. Coding Level of Care Code Est Pt Level 4 (90184) Diagnoses Restless leg syndrome G25.81
== END 2025-01-27 09:28 | disposition home or self-care (01) ==
LOC: HO.HSM 09:08
PROVIDERS: PCP Internal Medicine; Referring Provider Internal Medicine; Visit Provider Registered Nurse
DX: G25.81 Restless legs syndrome (principal)
CPT/HCPCS: 99214

== ENCOUNTER → 2025-01-27 09:07 | Outpatient (BNVA) | payer MEDICARE, SELFPAY | PROVIDERS: PCP Internal Medicine; Referring Provider Internal Medicine; Visit Provider Registered Nurse | DX: G25.81 Restless legs syndrome (principal) | CPT/HCPCS: 99212 ==

== ENCOUNTER 2025-02-17 08:17 | Outpatient (REF) | payer MEDICARE, SELFPAY ==
--- OUTSIDE RECORDS SUMMARY | 2025-02-17 08:34 | XMS_ITS | Patient Health Record ---
[facility] Address [address] [place], [place] [address] Care Team Providers Care Refinery Superintendent Name Role Phone Dodie Cazares Primary Care Provider Bekah Westbrook Unavailable [phone] Allergies Allergen (clinical drug ingredient) Drug/Non Drug [...] Date Coverage End Date [employer] Medicare [id number] [address] [address] [place] [address] [id number] Darrius Toussaint Self - patient is the insured Medical (General) History Medical History History ICD Code Back,Hip,and Knee pain Cholesterol Cataracts Gall bladder problems Reflux ( GERD) Measles Surgical History Surgery Date(Month/Year) Gall Bladder Surgery 2010
--- OUTSIDE RECORDS SUMMARY | 2025-02-17 08:34 | XMS_ITS | Patient Health Record ---
Author Organization [facility] - So [facility] Address [address] [place] [address] Care Team Providers Care Sewing Machine Attachment Tester Name Role Phone Amandeep Mclean Primary Care Provider Marisela Vazquez Unavailable [phone] Reason For Referral No Information Medications Medication SIG (Take, Route, Frequency, Duration) Notes Start Date End Date Status Tussin CF Active Z-pack As directed Active Zetia Active Crestor Active rOPINIRole Active allopurinol Active pantoprazole Active meloxicam Active Problems Problem Type SNOMED Code ICD Code Onset Dates Problem Status W/U Status Risk Notes Problem Hypercholesterolemia (36269601) Hypercholesterolemia NOS (272.4) Active confirmed Problem Gastroesophageal reflux disease (disorder) (333369387) GERD [Gastroesophageal reflux disease] (530.81) Active confirmed Problem Gout (25873578) Gout NOS (274.9) Active confirm ed Problem Restless legs syndrome (31390410) Restless leg syndrome (333.99) Active confirmed Problem Rheumatoid arthritis (05214681) Rheumatoid arthritis (714.0) Active confirmed Problem Low back pain (230150618) Low back pain (724.2) Active confirmed Plan Of Treatment No Information Insurance Providers Payer Name Payer Address Payer Phone Subscriber Number Group Number Insured Name Patient Relationship to Insured Coverage Start Date Coverage End Date Medicare [address] [address] [place] [phone] [id number] Darrius Toussaint Self - patient is the insured Medical (General) History Medical History History ICD Code Esophageal reflux Gout Hypercholestrolemia Low Back Pain Rheumatoid Arthritis Restless leg syndrome 333.99 Surgical History Surgery Date(Month/Year) Cholecystectomy Appendectomy
--- OUTSIDE RECORDS SUMMARY | 2025-02-17 08:34 | XMS_ITS | Patient Health Record ---
Author Organization [facility] Address [address] [place] [address] Care Team Providers Care Truck Safety Inspector Name Role Phone Po Dodie PRIETO Primary Care Provider Matt Cooper Unavailable [phone] Reason For Referral No Information Medications Medication [...] Crestor Active Colchicine 0.6 MG 1 tablet Orally; Duration: 30 day(s) Active Ondansetron NEEDED Active Tamsulosin HCl 0.4 MG TAKE 1 CAPSULE BY MOUTH EVERYDAY AT BEDTIME Oral; Duration: 90 Active Immunizations Vaccine Route Administration Date [...] Problem Status W/U Status Risk Notes Problem Screening for malignant neoplasm of colon (881643326) Encounter for screening for malignant neoplasm of colon (Z12.11) Active confirmed Problem History of adenomatous polyp of colon (362598678) History of adenomatous polyp of colon (Z86.010) Active confirmed Problem Diverticular disease of colon (806072926) Diverticulosis of large intestine without perforation or abscess without bleeding (K57.30) Active confirmed Problem Screening for malignant neoplasm of rectum (173118772) Encounter for screening for malignant neoplasm of rectum (Z12.12) Active confirmed Problem Family History of Cancer of Colon (Situation) (752751607) Family history of colon cancer (Z80.0) Active confirmed Problem Esophageal stricture (14998107) Esophageal stricture (K22.2) Active confirmed Problem Esophageal spasm (21111011) Esophageal spasm (K22.4) Active confirmed Problem Gastroesophageal reflux disease (007597138) GERD without esophagitis (K21.9) Active confirmed Problem Esophageal dysphagia (85086948) Esophageal dysphagia (R13.10) Active confirmed Plan Of Treatment Pending Test Test Name Order Date Pathology 04/24/2022 Future Test Test Name Order Date COLONOSCOPY 11/19/2011 COLONOSCOPY 07/25/2016 UPPER GI ENDOSCOPY BALLOOON DILATION OF ESOPH 07/06/2020 COLONOSCOPY 02/21/2022 Insurance Providers Payer Name Payer Address Payer Phone Subscriber Number Group Number Insured Name Patient Relationship to Insured Coverage Start Date Coverage End Date [facility] [address] [address] [place] [address] [id number] SHAWNA JONES Self - patient is the [...] in 2002 and 2006 Hyperlipidemia Gout Denies CA,DM,CVA,Lung disease,renal dise ase Pneumonia - 05/2016 Insomnia FATTY LIVER PERIPHERAL NEUROPATHY MILD DIVERTICULOSIS SPLENIC ARTERY ANEURYSM--seeing Dr. Perry , vascular surgeon ? of very mild diverticulitis in 2014 Seasonal allergies Colonoscopy in 01/2017 was negative Esophageal stricture dilated with an 18- 20mm balloon in 07/2020 Surgical History Surgery Date(Month/Year) CCY Appy
[2025-02-17 12:08] LABS: Alanine Aminotransferase 64 U/L (0-40); Albumin Level 4.4 g/dL (3.5-5.0); Alkaline Phosphatase 40 U/L (39-117); Anion Gap 12 (12-20); Aspartate Amino Transferase 45 U/L (5-37); Blood Urea Nitrogen 22 mg/dL (9-16); Calcium 9.7 mg/dL (8.4-10.2); Carbon Dioxide 28 mmol/L (22-29); Chloride 109 mmol/L (96-108); Cholesterol 135 mg/dL (<200); Estimated Glomerular Filt Rate > 60; HDL Cholesterol 45 mg/dL (>40); Potassium 4.1 mmol/L (3.3-5.1); Sodium 145 mmol/L (135-145); Total Protein 6.9 g/dL (6.5-8.0); Triglycerides 95 mg/dL (<150)
[2025-02-17 12:27] LABS: Prostate Specific Antigen 0.58 ng/mL (<0.05-4.0)
== END 2025-02-17 08:18 | disposition home or self-care (01) ==
LOC: HO.WFDLDS 08:17
PROVIDERS: Referring Provider Urology; Visit Provider Internal Medicine
DX: N40.1 Benign prostatic hyperplasia with lower urinary tract symptoms (principal); R35.0 Frequency of micturition; E11.65 Type 2 diabetes mellitus with hyperglycemia; E78.00 Pure hypercholesterolemia, unspecified; Z12.5 Encounter for screening for malignant neoplasm of prostate
CPT/HCPCS: 36415; 80053; 80061; 82570; 83036; 84153

== ENCOUNTER 2025-02-25 08:10 | Outpatient (AMB) | payer MEDICARE, SELFPAY ==
--- OUTSIDE RECORDS SUMMARY | 2025-02-25 08:13 | XMS_ITS | Patient Health Record ---
Author Organization [facility] Address [address] [place] [address] Care Team Providers Care Service Advisor Name Role Phone Po Dodie PRIETO Primary Care Provider Matt Cooper Unavailable [phone] Reason For Referral No Information Medications Medication SIG (Take, Route, Frequency, Duration) Notes Start Date End Date Status Gabapentin 300 MG Capsule 2 capsule AT B EDTIME Once a day Active Fenofibrate 160 MG Tablet 1 tablet with a meal Orally Once a day Active Pramipexole Dihydrochloride Requip Active Allopurinol Active Zetia Active Pantoprazole Sodium 40 MG Tablet Delayed Release 1 tablet Orally Once a day Active Crestor Active Colchicine 0.6 MG Tablet 1 tablet Orally ; Duration: 30 day(s) Active Ondansetron NEEDED Active Tamsulosin HCl 0.4 MG Capsule TAKE 1 CAPSULE BY MOUTH EVERYDAY AT BEDTIME Oral; Duration: 90 Active Immunizations Vaccine Route Administration Date Status Comme nts Influenza Unknown 12/03/2019 Administered Influenza Unknown 02/07/2022 Administered Social History Social History Drugs/Alcohol: Social Info Question Answer Notes Alcohol Screen Did you have a drink containing alcohol in the past year? Yes How often did you have a drink containing alcohol in the past year? 2 to 3 times a week (3 points) How many drinks did you have on a typical day when you were drinking in the past year? 3 or 4 drinks (1 point) How often did you have 6 or more drinks on one occasion in the past year? Less than monthly (1 point) Points 5 Interpretation Positive Additional Details Category Social Info Options Details Miscellaneous: Marital status: Occupation: Retired Section Notes: Nonsmoker; drinks beer occas ionally Nonsmoker; drinks beer occas ionally Nonsmoker; drinks beer occas ionally Nonsmoker; drinks beer occas ionally Problems Problem Type SNOMED Code ICD Code Onset Dates Problem Status W/U Status Risk Notes Problem Screening for malignant neoplasm of colon (344753718) Encounter for screening for malignant neoplasm of colon (Z12.11) Active confirmed Problem History of adenomatous polyp of colon (636304118) History of adenomatous polyp of colon (Z86.010) Active confirmed Problem Diverticular disease of colon (413701021) Diverticulosis of large intestine without perforation or abscess without bleeding (K57.30) Active confirmed Problem Screening for malignant neoplasm of rectum (276485334) Encounter for screening for malignant neoplasm of rectum (Z12.12) Active confirmed Problem Family History of Cancer of Colon (Situation) (301295819) Family history of colon cancer (Z80.0) Active confirmed Problem Esophageal stricture (43199231) Esophageal stricture (K22.2) Active confirmed Problem Esophageal spasm (98983414) Esophageal spasm (K22.4) Active confirmed Problem Gastroesophageal reflux disease (794539149) GERD without esophagitis (K21.9) Active confirmed Problem Esophageal dysphagia (92411001) Esophageal dysphagia (R13.10) Active confirmed Plan Of Treatment Pending Test Test Name Order Date Pathology 04/24/2022 Future Test Test Name Order Date COLONOSCOPY 11/19/2011 COLONOSCOPY 07/25/2016 UPPER GI ENDOSCOPY BALLOOON DILATION OF ESOPH 07/06/2020 COLONOSCOPY 02/21/2022 Insurance Providers Payer Name Payer Address Payer Phone Subscriber Number Group Number Insured Name Patient Relationship to Insured Coverage Start Date Coverage End Date [facility] [address] [place] [address] [id number] SHAWNA JONES Self - patient is the [...] in 2002 and 2006 Hyperlipidemia Gout Denies [place],DM,CVA,Lung disease,renal dise ase Pneumonia - 05/2016 Insomnia FATTY LIVER PERIPHERAL NEUROPATHY MILD DIVERTICULOSIS SPLENIC ARTERY ANEURYSM--seeing Dr. Perry , vascular surgeon ? of very mild diverticulitis in 2014 Seasonal allergies Colonoscopy in 01/2017 was negative Esophageal stricture dilated with an 18- 20mm balloon in 07/2020 Surgical History Surgery Date(Month/Year) CCY Appy
--- OUTSIDE RECORDS SUMMARY | 2025-02-25 08:13 | XMS_ITS | Patient Health Record ---
Author Organization [facility] Address [address] [place], [place] [address] Care Team Providers Care Replenishment Associate Name Role Phone Dodie Cazares Primary Care Provider Bekah Westbrook Unavailable [phone] Allergies Allergen (clinical drug ingredient) Drug/Non Drug [...] Date Coverage End Date [employer] Medicare [id number] [address] [address] [place] [address] [id number] Darrius Toussaint Self - patient is the insured Medical (General) History Medical History History ICD Code Back,Hip,and Knee pain Cholesterol Cataracts Gall bladder problems Reflux ( GERD) Measles Surgical History Surgery Date(Month/Year) Gall Bladder Surgery 2010
--- OUTSIDE RECORDS SUMMARY | 2025-02-25 08:13 | XMS_ITS | Patient Health Record ---
Author Organization [facility] Ur[facility] - So [facility] Address [address] [place] [address] Care Team Providers Care Tank Wagon Operator Name Role Phone Amandeep Mclean Primary Care Provider Marisela Vazquez Unavailable [phone] Reason For Referral No Information Medications Medication SIG (Take, Route, Frequency, Duration) Notes Start Date End Date Status Tussin CF Active Z-pack As directed Active Zetia Active Crestor Active rOPINIRole Active allopurinol Active pantoprazole Active meloxicam Active Problems Problem Type SNOMED Code ICD Code Onset Dates Problem Status W/U Status Risk Notes Problem Hypercholesterolemia (51151453) Hypercholesterolemia NOS (272.4) Active confirmed Problem Gastroesophageal reflux disease (disorder) (951056273) GERD [Gastroesophageal reflux disease] (530.81) Active confirmed Problem Gout (14777355) Gout NOS (274.9) Active confirm ed Problem Restless legs syndrome (85343376) Restless leg syndrome (333.99) Active confirmed Problem Rheumatoid arthritis (94135367) Rheumatoid arthritis (714.0) Active confirmed Problem Low back pain (049725183) Low back pain (724.2) Active confirmed Plan Of Treatment No Information Insurance Providers Payer Name Payer Address Payer Phone Subscriber Number Group Number Insured Name Patient Relationship to Insured Coverage Start Date Coverage End Date Medicare [address] [address] [place] [phone] [id number] Darrius Toussaint Self - patient is the insured Medical (General) History Medical History History ICD Code Esophageal reflux Gout Hypercholestrolemia Low Back Pain Rheumatoid Arthritis Restless leg syndrome 333.99 Surgical History Surgery Date(Month/Year) Cholecystectomy Appendectomy
--- NOTE | 2025-02-25 08:23 | A.OFFPC_ITS ---
Vital Signs 02/25/25 08:24 Height 6 ft Weight 228 lb 4 oz BMI 31.0 BP 130/78 Blood Pressure Location Lt brachial Position Sitting Pulse 54 Pulse Source Pulse Oximeter Temp 97.1 F Temp Source Temporal Artery Scan Pulse Oximetry (%) 96 Oxygen Delivery Method Room Air Intake Visit Reasons: cholesterol Intake Note: Patient is here to follow up on Cholesterol. Director Retail Brand Development Required: No Supervisor Roving Department: Not Required per policy Accompanied by: Self / Same As Patient Allergies bee venom protein (honey bee) Allergy (Severe, Verified 02/25/25 08:24) Anaphylaxis Medication List - Last Reconciled 02/25/25 by Dodie Cazares MD allopurinol 300 mg PO DAILY epinephrine 0.3 mL IM Q10M PRN ezetimibe 10 mg PO DAILY fenofibrate 160 mg PO DAILY fluticasone propionate 50 mcg/actuation (Flonase Allergy Relief) 1 spray intranasal DAILY gabapentin (Neurontin) 300 - 600 mg (1 - 2 x 300 mg) PO BEDTIME 90 days meloxicam 15 mg PO DAILY pantoprazole (Protonix) 40 mg PO DAILY pramipexole (Mirapex) 0.5 mg orally 1 tablet in the evening and 2 tablets at bedtime; rosuvastatin (Crestor) 20 mg PO DAILY tadalafil 10 mg PO DAILY 90 days tadalafil 20 mg PO ONCE PRN 30 days zolpidem ER 6.25 mg PO BEDTIME PRN Tobacco use date assessed: 02/25/25 Fall risk assessment: No Falls in past year Last assessed Fall Risk: 02/25/25 Dental Screening Dental Screen Date: 07/12/24 HPI cholesterol HPI Details L ear today pain , no discharge HPI Comments History of Present Illness Details History of Present Illness The patient is a 79-year-old individual presenting for a follow-up visit for management of chronic medical conditions. The patient reports a recent 9-pound weight gain after a previous 10-pound weight loss. The patient has a history of hypercholesterolemia, which is managed with fenofibrate 160 mg, rosuvastatin 20 mg, and Zetia. Recent lab work shows significant improvement in cholesterol levels, with triglycerides at 95 and LDL at 71. The patient has a history of diabetes mellitus, which is controlled with diet. Lab work from February 17 showed a hemoglobin A1c of 5.9% and a fasting blood sugar of 120. Recent labs also showed a creatinine of 1.11, an increase from prior values that were consistently below 1.0. The patient reports as-needed use of NSAIDs. Past medical history is also significant for benign prostatic hyperplasia (BPH), hepatic steatosis with chronic liver function elevation, and gastroesophageal reflux. The patient has restless leg syndrome, for which the patient saw neurology in January 2023 and takes pramipexole and gabapentin. For health maintenance, the patient's last colonoscopy was in April 2022. The patient is up to date on flu, COVID, and shingles vaccinations. Health Maintenance - Last colonoscopy was in April 2022. - Vaccinations for influenza, COVID, and shingles are up to date. - Discussed weight management, including diet, exercise, and the goal of losing weight. - Follow-up is scheduled for an annual p hysical in July, with repeat blood work to be done in six months to monitor kidney function and cholesterol. Social History - Exercise: The patient is encouraged to remain active. - Diet: The patient is advised to follow a low-fat diet and eat healthier. - Substance Use: The patient reports callum ing [id number] NSAIDs (ibuprofen, Aleve, Advil, Motrin) on an as-needed basis. Results - Lab Results (February 17): - Creatinine: 1.11. - Hemoglobin A1c: 5.9%. - Fasting blood sugar: 120 mg/dL. - Triglycerides: 95. - LDL cholesterol: 71. - PSA: 0.50. - Liver function tests: Chronically elev ated. - Electrolytes: Normal. - Lab Results (June): - Blood count: Normal. [facility] Medical History (Updated 02/25/25 @ 08:38 by Dodie Cazares MD) Impaired glucose tolerance GERD (gastroesophageal reflux disease) Esophageal stricture Diverticulitis Peripheral neuropathy H/O: pneumonia Tubular adenoma Screening for prostate cancer Olecranon bursitis, right elbow Elbow pain, right Onychomycosis Adult general medical exam Screening for colon cancer Dizziness Impacted cerumen of both ears Status post administration of all doses of COVID-19 vaccine series Anxiety Vitamin D deficiency Fatty liver Insomnia Restless leg syndrome Gout Umbilical hernia Left inguinal hernia Hypercholesterolemia BPH (benign prostatic hyperplasia) Erectile dysfunction Splenic artery aneurysm Peroneal tendonitis of right lower extremity Surgical History H/O esophagogastroduodenoscopy History of colonoscopy History of surgery History of laparoscopic cholecystectomy History of cataract surgery Status post appendectomy Family History Father CVD (cardiovascular disease) Heart problem Mother Pneumonia Brother CVD (cardiovascular disease) Prostate cancer Sister Ovarian cancer Sister Cancer Son In good health Daughter In good health Social History Housing: House Alcohol intake: current Alcohol intake frequency: a few times a month Alcohol type: beer Comment: 2 beers a day Patient Tobacco Use Status: Never used Tobacco Tobacco use type: Cigarette e-Cigarette/Vaping Use: Never Used Second Hand Smoke Exposure: No service: Yes 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al status: retired 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 Cognitive needs: No Hearing needs: No Vision needs: Yes Questionnaire Thrive Questionnaire Date Thrive assessed: 10/23/24 I am a: Patient What is your living situation today?: I have a steady place to live Within the past 12 months, did the food you bought not last and you didn't have the money to get more?: Never true Within the past 12 months, did you worry whether your food would run out before you got money to buy more?: Never true Do you have trouble paying for medicines?: No Do you have trouble getting transportation to medical appointments?: No Do you have trouble paying your heating and electricity bill?: No Do you have trouble taking care of your child, family member or friend?: No Do you have trouble with day-to-day activities such as bathing, preparing meals, shopping, managing finances, etc.?: No Are you currently unemployed and looking for a job?: No Are you interested in more education?: No Please select the resources that you would like help with: None Currently or been in a relationship where the following occur: No concerns reported THRIVE Score: 0 STEPHANIE-7 AMB Questionnaire STEPHANIE-7 Date STEPHANIE - 7 assessed: 10/29/24 Source: Developed by Drs. Matt Mcqueen, Genny Bailey, Michele Shah and colleagues, with an educational micaela from [employer]. Review of Systems Narrative Review of Systems - Constitutional: Reports a 9-pound weight gain. - Denies fevers. - HEENT: Reports a mild, constant left earache and a sensation of the ear being blocked and congested. - Denies ear discharge or hearing problems. - Denies sore throat. - Reports having allergies. - Neurological: Denies headaches. - GI: Denies nausea and vomiting. Physical exam (Primary Care) Vital Signs: Last Vital Signs Temp 97.1 F 02/25/25 08:24 Pulse 54 02/25/25 08:24 BP 130/78 02/25/25 08:24 Pulse Ox 96 02/25/25 08:24 Oxygen Delivery Method Room Air 02/25/25 08:24 BMI result Body Mass Index 31.0 Tobacco/Smoking Status: Tobacco use Status Tobacco use date assessed 02/25/25 02/25/25 08:30 Patient Tobacco Use Status Never used Tobacco 02/25/25 08:30 Tobacco use type Cigarette 02/25/25 08:30 e-Cigarette/Vaping Use Never Used 02/25/25 08:30 Thrive Assessment: Date of Thrive Assessment Date Thrive assessed 10/23/24 02/25/25 08:30 Currently or been in a relationship where the following occur: No concerns reported Narrative Physical Exam - Constitutional: Noted 9-pound weight gain. - HEENT: Oropharynx examination performed. - Signs of allergies noted. - Left ear examination reveals significant cerumen obstructing 50% of the canal, preventing full visualization of the tympanic membrane. - No tenderness with pinna traction or tragal pressure. - No tenderness on palpation over periauricular or sinus areas. - Respiratory: Lungs were auscultated. Const General: alert; No acute distress Eyes Conjunctivae: conjunctivae normal Resp Auscultation: clear to auscultation bilaterally Cardio Rate: regular rate Rhythm: regular rhythm GI Inspection: Yes normal to inspection Extrem General: Yes normal to inspection and No edema Coding Level of Care Code Complex visit Add On G2211 Diagnoses Obesity (BMI 30.0-34.9) E66.811 Type 2 diabetes mellitus with hyperglycemia E11.65 Hypercholesterolemia E78.00 Gastroesophageal reflux disease without esophagitis K21.9 Esophagitis presence: without esophagitis MCGRATH (nonalcoholic steatohepatitis) K75.81 Benign prostatic hyperplasia with urinary frequency N40.1; R35.0 Lower urinary tract symptom detail: urinary frequency Lower urinary tract symptom presence: symptoms present Osteoarthritis of left knee M17.12 Assessment & Plan Assessment & Plan (1) Obesity (BMI 30.0-34.9): Code(s): E66.811 - Obesity, class 1 Category: Medical Plan: Diet and exercise (2) Type 2 diabetes mellitus with hyperglycemia: Comment: Dr. Cisneros Code(s): E11.65 - Type 2 diabetes mellitus with hyperglycemia Category: Medical Plan: Decrease the amount of carbohydrate intake, pasta, bread, rice and potatoes are all sugar and that is aside from all the sweet stuff, remember that fruits are good but they are Sweet also. Patient is under control on diet (3) Hypercholesterolemia: Code(s): E78.00 - Pure hypercholesterolemia, unspecified Category: Medical Plan: Avoid fried foods, chicken skin, eggs, butter margarine, pastries and meat. Be it pork or beef they have a lot of cholesterol on fenofibrate 160 mg once a day and rosuvastatin 20 mg once a day and Zetia (4) GERD (gastroesophageal reflux disease): Code(s): K21.9 - Gastro-esophageal reflux disease without esophagitis Category: Medical Qualifiers: Esophagitis presence: without esophagitis Qualified Code(s): K21.9 - Gastro-esophageal reflux disease without esophagitis Plan: Avoid the foods that causes that usually spicy foods, tomato products, juices, coffee, soda and foods that your sensitive to. After eating do not lie down, allow 3-4 hours before in lie down. And keep the head of bed above 30 degrees to avoid the acid from going up. (5) MCGRATH (nonalcoholic steatohepatitis): Code(s): K75.81 - Nonalcoholic steatohepatitis (MCGRATH) Category: Medical Plan: Low-fat diet and exercise (6) BPH (benign prostatic hyperplasia): Comment: Flomax Code(s): N40.0 - Benign prostatic hyperplasia without lower urinary tract symptoms Category: Medical Qualifiers: Lower urinary tract symptom detail: urinary frequency Lower urinary tract symptom presence: symptoms present Qualified Code(s): N40.1 - Benign prostatic hyperplasia with lower urinary tract symptoms; R35.0 - Frequency of m icturition Plan: On tadalafil (7) Osteoarthritis of left knee: Code(s): M17.12 - Unilateral primary osteoarthritis, left knee Category: Medical Plan: Continue to keep active, lose the weight Plan Plan Patient was informed and verbally consented to the use of an ambient scribe for clinic note documentation during this visit. 1. Worsening Renal Function The patient's creatinine was noted to have increased to 1.11 from a baseline of less than 1. This change may be related to age-related decline or use of NSAIDs. The patient was counseled to avoid ibuprofen, Aleve, and Motrin, to use Tylenol instead for pain, and to maintain good hydration. Renal function will be monitored, with a plan to repeat labs in six months. 2. Prediabetes The patient's hemoglobin A1c is 5.9% with a fasting blood sugar of 120 mg/dL, consistent with prediabetes. The condition is managed with diet control. Continue current management and monitor with labs in six months. 3. Hypercholesterolemia The patient's cholesterol is well-controlled on fenofibrate 160 mg, rosuvastatin 20 mg, and Zetia, with a recent LDL of 71 and triglycerides of 95. The plan is to continue the current medication regimen and monitor with labs in six months. 4. Left Otalgia & Cerumen Impaction The patient reports a constant, mild left earache with a sensation of blockage, which is attributed to allergies and congestion. The physical exam revealed 50% cerumen impaction in the left ear canal, though no signs of otitis externa were present. The patient has been using eardrops at home. The patient was advised to take allergy medications regularly to help with congestion. 5. Insomnia The patient requested a refill for zolpidem (Ambien) and reported an insurance issue with a potential plan limitation. After discussing options, a 90-day prescription for zolpidem will be sent to [facility]. 6. Weight Management The patient has had a recent 9-pound weight gain. The patient is encouraged to continue to stay active, lose weight, and adhere to a healthy diet. Discussion Notes I reviewed the patient's recent lab results. I highlighted the excellent control of the patient's cholesterol and the stability of the prediabetes. We discussed the slight increase in creatinine to 1.11, a new finding compared to prior labs, and I explained that while it is still in the normal range, it warrants monitoring. I counseled the patient on the risks of NSAIDs to the kidneys and importance of hydration, especially with advancing age. We discussed the patient's complaint of left ear pain, noting the presence of significant ear wax and allergy symptoms as likely contributors. We also addressed the need for a zolpidem refill and the related insurance coverage issue, and I arranged for a 90-day prescription to be sent to the mail-order pharmacy. We agreed on a follow-up plan, including repeat labs in six months and an annual physical exam in July. Patient Instructions - Be very careful when taking anti-inflammatory pain medications like Ibuprofen, Advil, or Aleve, as they can be hard on your kidneys. - Try to use them only when needed and make sure to drink plenty of water. - Tylenol is a safer choice for your kidneys. - Continue to focus on weight loss by staying active and following a healthy diet. - A 90-day supply of your sleep medication, zolpidem, has been sent to your mail-order pharmacy, [facility]. - For your ear discomfort and congestion, take your allergy medication regularly. - We will need to get blood work done in about six months to recheck your kidney function and cholesterol levels. - Your next appointment is your annual physical exam, which is scheduled for July. Orders: Orders UA CC w/rflx Micro + Cult 6 Months E78.00 - Pure hypercholesterolemia, unspecified, R30.0 - Dysuria Comprehensive Met. Panel 6 Months E78.00 - Pure hypercholesterolemia, unspecified Complete Blood Count Auto Diff 6 Months E78.00 - Pure hypercholesterolemia, unspecified Free T4 (Free Thyroxine) 6 Months E78.00 - Pure hypercholesterolemia, unspecified Lipid Panel 6 Months E78.00 - Pure hypercholesterolemia, unspecified Thyroid Stimulating Hormone 6 Months E78.00 - Pure hypercholesterolemia, unspecified Vitamin B12 and Folate 6 Months E78.00 - Pure hypercholesterolemia, unspecified Prostate Specific Antigen Scr 6 Months E78.00 - Pure hypercholesterolemia, unspecified Medications: New zolpidem ER 6.25 mg PO BEDTIME PRN 90 tabs 1RF sleep G47.00 - Insomnia, unspecified Discontinued zolpidem (Ambien) Discontinued Reason: Insurance Denied 5 mg PO BEDTIME PRN 30 tabs 3RF sleep G47.00 - Insomnia, unspecified
[2025-02-25 08:24] VITALS: BP 130/78; PULSE 54; TEMP 36.2; O2SAT 96; BMI 31.0
== END 2025-02-25 08:54 | disposition home or self-care (01) ==
LOC: HO.HMCH 08:11
PROVIDERS: PCP Internal Medicine; Visit Provider Internal Medicine
DX: E11.65 Type 2 diabetes mellitus with hyperglycemia (principal); E66.811 Obesity, class 1; Z68.31 Body mass index [BMI] 31.0-31.9, adult; E78.00 Pure hypercholesterolemia, unspecified; K21.9 Gastro-esophageal reflux disease without esophagitis; K75.81 Nonalcoholic steatohepatitis (NASH); N40.1 Benign prostatic hyperplasia with lower urinary tract symptoms; R35.0 Frequency of micturition; M17.12 Unilateral primary osteoarthritis, left knee

== ENCOUNTER → 2025-02-25 08:10 | Outpatient (BNVA) | payer MEDICARE, SELFPAY | PROVIDERS: PCP Internal Medicine; Visit Provider Internal Medicine | DX: E66.811 Obesity, class 1 (principal); E11.65 Type 2 diabetes mellitus with hyperglycemia; E78.00 Pure hypercholesterolemia, unspecified; K21.9 Gastro-esophageal reflux disease without esophagitis; K75.81 Nonalcoholic steatohepatitis (NASH); N40.1 Benign prostatic hyperplasia with lower urinary tract symptoms; R35.0 Frequency of micturition; M17.12 Unilateral primary osteoarthritis, left knee | CPT/HCPCS: 99212 ==

== ENCOUNTER 2025-03-09 09:01 | Outpatient (AMB) | payer MEDICARE, SELFPAY ==
[2025-03-09 09:02] VITALS: BP 135/67; PULSE 56; BMI 30.8
--- NOTE | 2025-03-09 09:02 | MHC.OFFVIS ---
Vital Signs 03/09/25 09:02 Height 6 ft Weight 227 lb BMI 30.8 BP 135/67 Blood Pressure Location Rt brachial Position Sitting Pulse 56 Intake Visit Reasons: Umbilical Hernia Intake Note: Patient here today to re-discuss Umbilical hernia repair. PETE w/ Dr. Lisa 07-20-2024. Patient c/o: bothersome, on and off painful, bulges out. Imaging: Abdomen CTA~ 09-13-2024 [address] Landscape Architect Required: No Accompanied by: Self / Same As Patient Allergies bee venom protein (honey bee) Allergy (Severe, Verified 03/09/25 09:08) Anaphylaxis Medication List - Last Reconciled 03/09/25 by Owen Felix MD allopurinol 300 mg PO DAILY epinephrine 0.3 mL IM Q10M PRN ezetimibe 10 mg PO DAILY fenofibrate 160 mg PO DAILY fluticasone propionate 50 mcg/actuation (Flonase Allergy Relief) 1 spray intranasal DAILY gabapentin (Neurontin) 300 - 600 mg (1 - 2 x 300 mg) PO BEDTIME 90 days meloxicam 15 mg PO DAILY pantoprazole (Protonix) 40 mg PO DAILY pramipexole (Mirapex) 0.5 mg orally 1 tablet in the evening and 2 tablets at bedtime; rosuvastatin (Crestor) 20 mg PO DAILY tadalafil 10 mg PO DAILY 90 days tadalafil 20 mg PO ONCE PRN 30 days zolpidem ER 6.25 mg PO BEDTIME PRN HPI Comments Details: Patient reports he has had periumbilical ventral hernia for quite some time and he finds it bothersome. He also reports is gradually enlarging. He can ?sort of? reduce it but often times it is tender after he does physical work such as shoveling his driveway. He denies any obstructive symptoms. His other abdominal surgeries include open appendectomy via lower midline approach as well as a laparoscopic cholecystectomy. He reports no problems with either of these procedures. [facility] Medical History Impaired glucose tolerance GERD (gastroesophageal reflux disease) Esophageal stricture Diverticulitis Peripheral neuropathy H/O: pneumonia Tubular adenoma Screening for prostate cancer Olecranon bursitis, right elbow Elbow pain, right Onychomycosis Adult general medical exam Screening for colon cancer Dizziness Impacted cerumen of both ears Status post administration of all doses of COVID-19 vaccine series Anxiety Vitamin D deficiency Fatty liver Insomnia Restless leg syndrome Gout Umbilical hernia Left inguinal hernia Hypercholesterolemia BPH (benign prostatic hyperplasia) Erectile dysfunction Splenic artery aneurysm Peroneal tendonitis of right lower extremity Surgical History H/O esophagogastroduodenoscopy History of colonoscopy History of surgery History of laparoscopic cholecystectomy History of cataract surgery Status post appendectomy Family History Father CVD (cardiovascular disease) Heart problem Mother Pneumonia Brother CVD (cardiovascular disease) Prostate cancer Sister Ovarian cancer Sister Cancer Son In good health Daughter In good health Social History Housing: House Alcohol intake: current Alcohol intake frequency: a few times a month Alcohol type: beer Comment: 2 beers a day Patient Tobacco Use Status: Never used Tobacco Tobacco use type: Cigarette e-Cigarette/Vaping Use: Never Used Second Hand Smoke Exposure: No service: Yes 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al status: retired 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 Cognitive needs: No Hearing needs: No Vision needs: Yes Review of Systems Const All systems reviewed & are unremarkable except as noted in HPI and below Physical Exam Vital Signs: Last Vital Signs Pulse 56 03/09/25 09:02 BP 135/67 03/09/25 09:02 BMI result Body Mass Index 30.8 Const General: cooperative, healthy appearing and comfortable Orientation/consciousness: patient oriented x3 HEENT Head: Yes normal to inspection, Yes normocephalic and Yes atraumatic Ears: hearing grossly normal bilaterally General nose exam: Normal external nose present Face and sinus: Yes normal facial exam Eyes Sclerae: sclerae normal Pupils: Equal, round and reactive pupils present EOM: EOMs intact bilaterally Neck Neck: Yes normal visual inspection Chest Chest palpation & inspection: normal inspection of the chest Resp Effort & Inspection: normal respiratory effort and able to speak in complete sentences Cardio Rate: regular rate Rhythm: regular rhythm GI Other: Soft nontender nondistended no evidence of hepatosplenomegaly. Lower midline laparotomy scar, well healed. 4-5 cm periumbilical hernia with obvious septations, slightly reducible, slightly tender. No corresponding skin change. Abdomen image:  1. hernia 2. scar Neuro General: patient oriented x3 Cranial nerves: Yes Equal, round and reactive pupils present Extrem General: Yes normal to inspection Assessment & Plan Assessment & Plan (1) Incarcerated ventral hernia: Code(s): K43.6 - Other and unspecified ventral hernia with obstruction, without gangrene Category: Medical Plan: I described to the patient the nature of laparoscopic possible open ventral hernia repair with mesh. I reviewed with him in detail the risks are involved with such an endeavor. These include but are not limited to the risk of bleeding the risk of infection the risk of damage to surrounding structures, both recognized and unrecognized at time of surgery, the risk of hernia recurrence, risk of chronic pain the risk of unsightly scarring and the possibility that the surgery would not solve his current problems with abdominal discomfort were all reviewed with him in detail. He told me that he understood. He told me that he carefully considered his options. He told me that he understood and accepted the risks with surgery and lastly indicated that he wished to proceed with operative intervention. Coding Level of Care Code New Pt Level 3 (94789) Diagnoses Incarcerated ventral hernia K43.6 Time Spent (min) 30 Comment Patient visit record review and coordination of care time
== END 2025-03-09 09:27 | disposition home or self-care (01) ==
LOC: HO.HGS 09:01
PROVIDERS: PCP Internal Medicine; Visit Provider Surgery
DX: K43.6 Other and unspecified ventral hernia with obstruction, without gangrene (principal)
CPT/HCPCS: 99213

== ENCOUNTER → 2025-03-09 09:01 | Outpatient (BNVA) | payer MEDICARE, SELFPAY | PROVIDERS: PCP Internal Medicine; Visit Provider Surgery | DX: K43.6 Other and unspecified ventral hernia with obstruction, without gangrene (principal) | CPT/HCPCS: 99212 ==

== ENCOUNTER 2025-03-11 12:48 | Outpatient (AMB) | payer MEDICARE, SELFPAY ==
--- NOTE | 2025-03-11 13:01 | A.OFFVIS_ITS ---
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 He is a patient of Dr. Cazares. He is seen for the following urologic conditions - lower urinary tract symptoms - hypogonadism Yearly follow-up Erectile performance is not as much of a concern currently Continue with 10 mg Cialis daily and up to 40mg on demand Daily Cialis has been helping with urinary edge PSA remains low. Ninety to check for next 5 years Lower urinary tract symptoms Current visit for symptom evaluation minimal nocturia effective stream current medications tamsulosin PSA 10/25 0.5, 06/27 0.54, 03/01 0.6 Urge response to combination tamsulosin and tadalafil Erectile Dysfunction - not currently using therapy testosterone 380, FSH mildly elevated - 11/27 T 242 FT 41, 02/27 T 312 FT 50 LH 2.5, 08/28 T 340 FT 48 PFSH Medical History Impaired glucose tolerance GERD (gastroesophageal reflux disease) Esophageal stricture Diverticulitis Peripheral neuropathy H/O: pneumonia Tubular adenoma Screening for prostate cancer Olecranon bursitis, right elbow Elbow pain, right Onychomycosis Adult general medical exam Screening for colon cancer Dizziness Impacted cerumen of both ears Status post administration of all doses of COVID-19 vaccine series Anxiety Vitamin D deficiency Fatty liver Insomnia Restless leg syndrome Gout Umbilical hernia Left inguinal hernia Hypercholesterolemia BPH (benign prostatic hyperplasia) Erectile dysfunction Splenic artery aneurysm Peroneal tendonitis of right lower extremity Surgical History H/O esophagogastroduodenoscopy History of colonoscopy History of surgery History of laparoscopic cholecystectomy History of cataract surgery Status post appendectomy Family History Father CVD (cardiovascular disease) Heart problem Mother Pneumonia Brother CVD (cardiovascular disease) Prostate cancer Sister Ovarian cancer Sister Cancer Son In good health Daughter In good health Social History Housing: House Alcohol intake: current Alcohol intake frequency: a few times a month Alcohol type: beer Comment: 2 beers a day Patient Tobacco Use Status: Never used Tobacco Tobacco use type: Cigarette e-Cigarette/Vaping Use: Never Used Second Hand Smoke Exposure: No service: Yes 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al status: retired 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 Cognitive needs: No Hearing needs: No Vision needs: Yes Review of Systems Const Denies chills and Denies fever(s) Card Reports no additional complaints and Denies syncope Resp Denies cough GI Denies abdominal pain and Denies heartburn Reports as per HPI and Denies change in libido Neuro Denies syncope Psych Denies change in libido Endo Denies change in libido Physical Exam Const General: cooperative, healthy appearing, comfortable and no acute distress Orientation/consciousness: patient oriented x3 HEENT Face and sinus: Yes normal facial exam Mouth: moist mucous membranes Neck Neck: Yes normal visual inspection, Yes full ROM and Yes trachea midline Chest Chest palpation & inspection: normal inspection of the chest Resp Effort & Inspection: normal respiratory effort, able to speak in complete sentences and no respiratory distress GI Inspection: Yes normal to inspection Back/Spine/Pelvis Cervical Spine: normal cervical lordosis Thoracic/Lumbar Spine: thoracic and lumbar spine normal to inspection Skin General skin exam: no rashes or lesions noted Neuro General: patient oriented x3, gait normal, tone normal and moves all extremities Extrem General: Yes normal to inspection and Yes capillary refill normal Office Procedures Post Void Residual Post Residual Void Post Void Residual (PVR): 5 [id number]-Xgpm Void Residual by ultrasound Assessment & Plan Assessment & Plan (1) BPH (benign prostatic hyperplasia): Comment: Flomax Code(s): N40.0 - Benign prostatic hyperplasia without lower urinary tract symptoms Category: Medical Qualifiers: Lower urinary tract symptom detail: urinary frequency Lower urinary tract symptom presence: symptoms present Qualified Code(s): N40.1 - Benign prostatic hyperplasia with lower urinary tract symptoms; R35.0 - Frequency of micturition (2) Erectile dysfunction: Comment: Currently no treatment plan Code(s): N52.9 - Male erectile dysfunction, unspecified Category: Medical Plan Continue yearly surveillance Orders: Orders AMB Post Void Residual by ultrasound 03/11/25 N40.1 - Benign prostatic hyperplasia with lower urinary tract symptoms, R35.0 - Frequency of micturition Medications: Changed From tadalafil 10 mg PO DAILY 90 days 90 tabs 1RF sexual activity N40.1 - Benign prostatic hyperplasia with lower urinary tract symptoms, R35.0 - Frequency of micturition To tadalafil 5 mg PO DAILY 90 tabs 3RF sexual activity 90 days N40.1 - Benign prostatic hyperplasia with lower urinary tract symptoms, R35.0 - Frequency of micturition Patient Instructions: This note is constructed using voice recognition software. While every effort has been made to ensure accuracy performance management consultant errors may have been included. Imaging studies, laboratory and physical exam results were discussed and reviewed in detail. No major barriers to patient understanding were identified. An opportunity to ask questions regarding the treatment plan was provided. All questions were answered. The patient expressed understanding and agreement with the above treatment plan. The patient is aware they should contact our office by phone for worsening of their current condition or the appearance of new urologic symptoms. Compliance is encouraged with any medications and followup testing that is ordered. It is a privilege to participate in the urologic care of your patient. If you have any questions or concerns regarding treatment for the above conditions, or other urologic issues, please do not hesitate to contact me. The office telephone contact is [phone]. Sincerely, Dr Donato Lund MD, [facility] - Urology Compassionate Specialist Care for the Genitourinary System Coding Level of Care Code Est Pt Level 4 (85875) Diagnoses Benign prostatic hyperplasia with urinary frequency N40.1; R35.0 Lower urinary tract symptom detail: urinary frequency Lower urinary tract symptom presence: symptoms present Erectile dysfunction N52.9 CPT Codes Post Residual Void - PVR CPT Code: 63847-Soky Void Residual by ultrasound ([id number])
== END 2025-03-11 13:27 | disposition home or self-care (01) ==
LOC: HO.HUSH 12:48
PROVIDERS: PCP Internal Medicine; Visit Provider Urology
DX: N40.1 Benign prostatic hyperplasia with lower urinary tract symptoms (principal); R35.0 Frequency of micturition; N52.9 Male erectile dysfunction, unspecified
CPT/HCPCS: 99214

== ENCOUNTER → 2025-03-11 12:48 | Outpatient (BNVA) | payer MEDICARE, SELFPAY | PROVIDERS: PCP Internal Medicine; Visit Provider Urology | DX: N40.1 Benign prostatic hyperplasia with lower urinary tract symptoms (principal); N52.9 Male erectile dysfunction, unspecified; R35.0 Frequency of micturition | CPT/HCPCS: 51798; 99212 ==